=== PATIENT | female | born 1980 | race Caucasian/White ===

== ENCOUNTER 2016-03-04 21:31 | Emergency (ER) | payer OTHER ==
--- NOTE | 2016-03-04 23:04 | ED ---
General Adult HPI - General Chief complaint: Abdominal Pain Stated complaint: Female /Dental Abcess Time Seen by Provider: 03/04/16 22:57 Source: patient, RN notes reviewed Mode of arrival: ambulatory Limitations: no limitations - History of Present Illness Initial comments: Patient is a 36-year-old female who presents emergency room today with chief complaint of increased lower abdominal pain. Patient admits that symptoms started a week ago. She states that she is worried that she may be . She states that symptoms feel consistent with that she's had a past. States her last normal menstrual cycle was back in December. States she just got out of [facility] approximately one week ago. Patient states that she is also worried about abscess located to the lower gumline over tooth #3. Patient also admits to some vaginal discharge. Denies any bleeding. Patient denies any other complaints or associated symptoms. Patient denies any recent fever, chills , shortness of breath, chest pain, back pain, nausea or vomiting, numbness or tingling, dysuria or hematuria, constipation or diarrhea, headaches or visual changes, or any other complaints. - Related Data Previous Rx's Medication Instructions Recorded Sulfamethox-Tmp 800-160Mg [Bactrim 1 tab PO Q12HR #14 tab 03/04/16 DS 800-160 mg] Allergies Allergy/AdvReac Type Severity Reaction Status Date / Time No Known Allergies Allergy Verified 03/04/16 22:55 Review of Systems ROS Statement: Those systems with pertinent positive or pertinent negative responses have been documented in the HPI. ROS Other: All systems not noted in ROS Statement are negative. Past Medical History Past Medical History: No Reported History Additional Past Medical History / Comment(s): kidney infection, ovarian cyst, migraine History of Any Multi-Drug Resistant Organisms: None Reported Past Surgical History: Orthopedic Surgery, Tubal Ligation Additional Past Surgical History / Comment(s): cervical, ovarian cyst Past Psychological History: Anxiety Smoking Status: Current every day smoker Past Alcohol Use History: None Reported Past Drug Use History: None Reported General Exam - General Exam Comments Initial Comments: General: The patient is awake and alert, in no distress, and does not appear acutely ill. Eye: Pupils are equal, round and reactive to light, extra-ocular movements are intact. No nystagmus. There is normal conjunctiva bilaterally. No signs of icterus. Ears, nose, mouth and throat: There are moist mucous membranes and no oral lesions. Neck: The neck is supple, there is no tenderness or JVD. Cardiovascular: There is a regular rate and rhythm. No murmur, rub or gallop is appreciated. Respiratory: Lungs are clear to auscultation, respirations are non-labored, breath sounds are equal. No wheezes, stridor, rales, or rhonchi. Gastrointestinal: Soft, non-distended, non-tender abdomen without masses or organomegaly noted. There is no rebound or guarding present. No CVA tenderness. Bowel sounds are unremarkable. Musculoskeletal: Normal ROM, no tenderness. Strength 5/5. Sensation intact. Pulses equal bilaterally 2+. Neurological: A&O x 3. CN II-XII intact, There are no obvious motor or sensory deficits. Coordination appears grossly intact. Speech is normal. Skin: Skin is warm and dry and no rashes or lesions are noted. Psychiatric: Cooperative, appropriate mood & affect, normal judgment. Limitations: no limitations External exam: Present: normal external exam (COMMUNICATIONS SYSTEMS ENGINEERMYKEL Soliz present for exam.) Speculum exam: Present: normal speculum exam (Mild white discharge.) By manual exam: Present: normal by manual exam. Absent: cervical motion tenderness, adnexal tenderness, adnexal mass Course Vital Signs 03/04/16 03/04/16 21:38 23:11 Temperature 98.7 F Pulse Rate 124 H 93 Respiratory 20 18 Rate Blood Pressure 140/73 118/65 O2 Sat by Pulse 98 100 Oximetry Medical Decision Making - Medical Decision Making Patient does have cultures pending. Urinalysis reviewed negative test. Urine positive for urinary tract infection will be started on antibiotics. Advised follow-up to [facility]. Advised return if any symptoms increase or worsen. Patient states understanding and is in agreement. - Lab Data Lab Results 03/04/16 03/04/16 Range/Units 23:05 23:05 Urine Color Light Yellow Urine Appearance Cloudy H (Clear) Urine pH 7.5 (5.0-8.0) Ur Specific [place] 1.010 (1.001-1.035) Urine Protein Negative (Negative) Urine Glucose (UA) Negative (Negative) Urine Ketones Negative (Negative) Urine Blood Negative (Negative) Urine Nitrate Negative (Negative) Urine Bilirubin Negative (Negative) Urine Urobilinogen <2.0 (<2.0) mg/dL Ur Leukocyte Esterase Large H (Negative) Urine RBC 4 (0-5) /hpf Urine WBC 80 H (0-5) /hpf Urine WBC Clumps Rare H (None) /hpf Ur Squamous Epith Cells 6 H (0-4) /hpf Amorphous Sediment Occasional H (None) /hpf Urine Bacteria Rare H (None) /hpf Urine Mucus Rare H (None) /hpf Urine HCG, Qual Not Detected (Not Detectd) Disposition Clinical Impression: UTI (urinary tract infection) Disposition: HOME SELF-CARE Condition: Good Instructions: Urinary Tract Infection in Women (ED) Additional Instructions: Please use medication as discussed. Please follow-up with [facility] over the next 2-5 days. Please return to emergency room if the symptoms increase or worsen or for any other concerns. Prescriptions: Sulfamethox-Tmp 800-160Mg [Bactrim DS 800-160 mg] 1 tab PO Q12HR #14 tab Time of Disposition: 23:59
[2016-03-04 23:11] VITALS: RESP 18
[2016-03-04 23:32] LABS: Amorphous Sediment,Urine Occasional /hpf; Appearance,Urine Cloudy (Clear); Bacteria,Urine Rare /hpf; Bilirubin,Urine Negative (Negative); Glucose,Urine (UA) Negative (Negative); Ketones,Urine Negative (Negative); Leukocyte Esterase,Urine Large (Negative); Mucus,Urine Rare /hpf; Nitrite,Urine Negative (Negative); PH, Urine 7.5 (5.0-8.0); Particle Count 11093; Protein,Urine Negative (Negative); RBC,Urine 4 /hpf (0-5); Squamous Epithelial Cell,Urine 6 /hpf (0-4); UA Billing (MACRO vs. MICRO) MICRO; Urobilinogen,Urine <2.0 mg/dL (<2.0); WBC,Urine 80 /hpf (0-5)
[2016-03-05 00:15] VITALS: BP 102/61; PULSE 85; TEMP 98
== END 2016-03-05 00:14 | disposition home or self-care (01) ==
LOC: EC 21:31
DX: N39.0 Urinary tract infection, site not specified (principal); K04.7 Periapical abscess without sinus; F17.200 Nicotine dependence, unspecified, uncomplicated
CPT/HCPCS: 81001; 81025; 87070; 87086; 87205; 87491; 87591; 87808; 99284

== ENCOUNTER 2016-05-08 11:50 | Emergency (ER) | payer SELFPAY ==
[2016-05-08 12:00] VITALS: RESP 18
[2016-05-08] MEDS ORDERED: SODIUM CHLORIDE 0.9% 1,000 ML IV STA (12:05)
[2016-05-08] MEDS ORDERED: LORazepam 1 MG TAB PO STA (12:05)
[2016-05-08 12:30] LABS: Basophils % (A) 0 %; Eosinophils # (A) 0.2 k/uL (0-0.7); Eosinophils % (A) 3 %; HCT 41.1 % (34.0-46.0); HDW 3.04; HGB 12.5 gm/dL (11.4-16.0); Hypochromasia Moderate; Luc # (Auto) 0.25; Luc % (Auto) 3; Lymphocytes % (A) 25 %; MCH 19.8 pg (25.0-35.0); MCHC 30.5 g/dL (31.0-37.0); Mean Platelet Volume 6.9; Microcytosis Marked; Monocytes # (A) 0.5 k/uL (0-1.0); Monocytes % (A) 6 %; Neutrophils % (A) 63 %; RBC 6.32 m/uL (3.80-5.40); RDW 14.6 % (11.5-15.5)
[2016-05-08 12:36] LABS: ALT 24 U/L (9-52); AST 27 U/L (14-36); Alkaline Phosphatase 73 U/L (38-126); Anion Gap 16 mmol/L; Blood Urea Nitrogen 8 mg/dL (7-17); Calcium 10.4 mg/dL (8.4-10.2); Carbon Dioxide 18 mmol/L (22-30); Chloride 109 mmol/L (98-107); Glucose 80 mg/dL (74-99); Non-African American GFR(MDRD) >60 (>60 ml/min/1.73 sqM); Potassium 3.9 mmol/L (3.5-5.1); Sodium 143 mmol/L (137-145); Total Bilirubin 1.5 mg/dL (0.2-1.3); Total Protein 8.2 g/dL (6.3-8.2)
[2016-05-08] MEDS ORDERED: HYDROcodone/APAP 10-325MG 1 EACH TAB PO ONE (12:40)
--- NOTE | 2016-05-08 12:40 | XR ---
EXAMINATION TYPE: XR chest 2V DATE OF EXAM: 05/08/2016 12:33 PM HISTORY: Chest Pain. REFERENCE: Previous study dated 11/05/2014. FINDINGS: The lungs are clear. Pleural spaces are clear. Heart size is normal. No displaced rib fract ure is seen. IMPRESSION: NORMAL
[2016-05-08 13:59] VITALS: BP 122/79; PULSE 92
--- NOTE | 2016-05-08 14:13 | ED ---
Chest Pain HPI - General Chief Complaint: Chest Pain Stated Complaint: DRUG INDUCED CHEST PAIN Time Seen by Provider: 05/08/16 12:04 Source: patient Mode of arrival: EMS Limitations: no limitations - History of Present Illness Initial Comments: Patient complains of chest pain. Her pain began several hours ago. Her pain began after using meth for the first time. Patient states the pain as sharp. The pain is in the middle of the chest. It doesn't radiate anywhere. Nothing makes it better or worse. She has no palpitations. She has no belly pain. She has no nausea or vomiting. She has no weakness. She has no change in appetite. She denies any injuries. She has taken no medication for the pain. - Related Data Home Medications Medication Instructions Recorded Confirmed No Known Home Medications [No 05/08/16 05/08/16 Known Home Medications] Allergies Allergy/AdvReac Type Severity Reaction Status Date / Time No Known Allergies Allergy Verified 05/08/16 12:37 Review of Systems ROS Statement: Those systems with pertinent positive or pertinent negative responses have been documented in the HPI. ROS Other: All systems not noted in ROS Statement are negative. EKG Findings - EKG Comments: EKG Findings:: Twelve-lead EKG is obtained, interpreted by me showing ventricular rate 110 bpm, normal MA interval and Trevor complex is, no ST elevation or depression, interpreted by me as sinus tachycardia without acute ischemia. Past Medical History Past Medical History: No Reported History Additional Past Medical History / Comment(s): kidney infection, ovarian cyst, migraine History of Any Multi-Drug Resistant Organisms: None Reported Past Surgical History: Orthopedic Surgery, Tubal Ligation Additional Past Surgical History / Comment(s): cervical, ovarian cyst Past Psychological History: Anxiety Smoking Status: Current every day smoker Past Alcohol Use History: Occasional Past Drug Use History: Marijuana, Methamphetamine General Exam Limitations: no limitations General appearance: alert, in no apparent distress Head exam: Present: atraumatic, normocephalic, normal inspection Eye exam: Present: normal appearance, PERRL, EOMI. Absent: scleral icterus, conjunctival injection, periorbital swelling ENT exam: Present: normal exam, mucous membranes moist Neck exam: Present: normal inspection. Absent: tenderness, meningismus, lymphadenopathy Respiratory exam: Present: normal lung sounds bilaterally. Absent: respiratory distress, wheezes, rales, rhonchi, stridor Cardiovascular Exam: Present: regular rate, normal rhythm, normal heart sounds. Absent: systolic murmur, diastolic murmur, rubs, gallop, clicks GI/Abdominal exam: Present: soft, normal bowel sounds. Absent: distended, tenderness, guarding, rebound, rigid Extremities exam: Present: normal inspection, full ROM, normal capillary refill. Absent: tenderness, pedal edema, joint swelling, calf tenderness Back exam: Present: normal inspection Neurological exam: Present: alert, oriented X3, CN II-XII intact Psychiatric exam: Present: normal affect, normal mood Skin exam: Present: warm, dry, intact, normal color. Absent: rash Course Vital Signs 05/08/16 05/08/16 05/08/16 11:54 12:06 12:46 Temperature 97.4 F L Pulse Rate 113 H 107 H Pulse Rate [ 100 Apical] Respiratory 18 18 Rate Blood Pressure 130/84 118/80 O2 Sat by Pulse 100 100 Oximetry 05/08/16 13:59 Temperature Pulse Rate 92 Pulse Rate [ Apical] Respiratory 18 Rate Blood Pressure 122/79 O2 Sat by Pulse 100 Oximetry Chest Pain MDM - [facility] [place] Patient complains of chest pain. Her laboratory studies are normal. Her imaging is normal. There is no evidence of pneumothorax. She has no risk factors for acute coronary syndrome or pulmonary embolism. She is resting comfortably on reevaluation. She is stable for discharge and outpatient follow- up. Disposition Clinical Impression: Chest pain, Pleurisy Disposition: HOME SELF-CARE Condition: Good Instructions: Chest Pain (ED) Referrals: None,Stated [Primary Care Provider] - 1-2 days Robi Estrella MD [STAFF PHYSICIAN] - 1-2 days Time of Disposition: 14:13
[2016-05-08 14:22] VITALS: TEMP 98.3
== END 2016-05-08 14:22 | disposition home or self-care (01) ==
LOC: EC 11:50
DX: R09.1 Pleurisy (principal); F17.200 Nicotine dependence, unspecified, uncomplicated
CPT/HCPCS: 36415; 71020; 80053; 80306; 83690; 83735; 83880; 84484; 85025; 93005; 96360; 96361; 99285

== ENCOUNTER 2016-07-28 00:50 | Emergency (ER) | payer OTHER ==
[2016-07-28] MEDS ORDERED: SODIUM CHLORIDE 0.9% 1,000 ML IV ONE (01:01)
[2016-07-28 01:26] LABS: Appearance,Urine Cloudy (Clear); Bilirubin,Urine Negative (Negative); Glucose,Urine (UA) Negative (Negative); Ketones,Urine Negative (Negative); Leukocyte Esterase,Urine Large (Negative); Nitrite,Urine Negative (Negative); PH, Urine 6.5 (5.0-8.0); Particle Count 1435; Protein,Urine Negative (Negative); Specific Gravity,Urine 1.003 (1.001-1.035); Squamous Epithelial Cell,Urine <1 /hpf (0-4); UA Billing (MACRO vs. MICRO) MICRO; Urobilinogen,Urine <2.0 mg/dL (<2.0); WBC,Urine 146 /hpf (0-5)
[2016-07-28 01:35] LABS: Basophils # (A) 0.1 k/uL (0-0.2); Basophils % (A) 1 %; CH 20.1; CHCM 30.6; Eosinophils # (A) 0.6 k/uL (0-0.7); Eosinophils % (A) 5 %; HCT 39.1 % (34.0-46.0); HDW 2.82; HGB 11.6 gm/dL (11.4-16.0); Hypochromasia Moderate; Luc # (Auto) 0.17; Luc % (Auto) 1; Lymphocytes # (A) 2.5 k/uL (1.0-4.8); Lymphocytes % (A) 21 %; MCH 19.7 pg (25.0-35.0); MCHC 29.7 g/dL (31.0-37.0); MCV 66.2 fL (80.0-100.0); Mean Platelet Volume 7.5; Microcytosis Marked; Monocytes # (A) 0.4 k/uL (0-1.0); Monocytes % (A) 3 %; Neutrophils # (A) 8.1 k/uL (1.3-7.7); Neutrophils % (A) 69 %; RBC 5.91 m/uL (3.80-5.40); RDW 15.1 % (11.5-15.5); WBC 11.7 k/uL (3.8-10.6); WBC (Perox) 11.87
[2016-07-28 01:44] LABS: ALT 25 U/L (9-52); AST 22 U/L (14-36); Alkaline Phosphatase 61 U/L (38-126); Amylase 108 U/L (30-110); Anion Gap 12 mmol/L; Blood Urea Nitrogen 8 mg/dL (7-17); Calcium 9.1 mg/dL (8.4-10.2); Carbon Dioxide 26 mmol/L (22-30); Chloride 107 mmol/L (98-107); Glucose 88 mg/dL (74-99); Non-African American GFR(MDRD) >60 (>60 ml/min/1.73 sqM); Potassium 3.9 mmol/L (3.5-5.1); Sodium 145 mmol/L (137-145); Total Bilirubin 0.7 mg/dL (0.2-1.3); Total Protein 7.1 g/dL (6.3-8.2)
[2016-07-28] MEDS ORDERED: LEVOFLOXACIN 750MG-D5W PMX 750 MG in DEXTROSE/WATER 1 150ML.BAG IVPB STA (01:59)
--- NOTE | 2016-07-28 01:59 | ED ---
Female Urogenital HPI - General Chief complaint: Urogenital Stated complaint: UTI Time Seen by Provider: 07/28/16 00:59 Source: patient, RN notes reviewed, old records reviewed Mode of arrival: ambulatory Limitations: no limitations - History of Present Illness Initial comments: Patient is a 36-year-old female presents the ED chief complaint of dysuria for the past 3 days. Patient reports that she also has some left-sided flank pain. Patient denies any recent fever or chills. She reports polyuria and dysuria. Patient denies any vaginal discharge. She denies any chance of . Patient states that she has had multiple urinary tract infections leading to kidney infections in the past. Patient denies any nausea or vomiting or abdominal pain. - Related Data Previous Rx's Medication Instructions Recorded Ciprofloxacin HCl [Cipro] 500 mg PO Q12HR #14 tablet 07/28/16 Phenazopyridine [Pyridium] 100 mg PO TID #9 tablet 07/28/16 Allergies Allergy/AdvReac Type Severity Reaction Status Date / Time No Known Allergies Allergy Verified 07/28/16 00:57 Review of Systems ROS Statement: Those systems with pertinent positive or pertinent negative responses have been documented in the HPI. ROS Other: All systems not noted in ROS Statement are negative. Past Medical History Past Medical History: No Reported History Additional Past Medical History / Comment(s): kidney infection, ovarian cyst, migraine History of Any Multi-Drug Resistant Organisms: None Reported Past Surgical History: Orthopedic Surgery, Tubal Ligation Additional Past Surgical History / Comment(s): cervical, ovarian cyst Past Psychological History: Anxiety Smoking Status: Current every day smoker Past Alcohol Use History: Occasional Past Drug Use History: Marijuana, Methamphetamine General Exam - General Exam Comments Initial Comments: Well-appearing 36-year-old female. No acute distress. Limitations: no limitations General appearance: alert, in no apparent distress Head exam: Present: atraumatic, normocephalic, normal inspection Eye exam: Present: normal appearance, PERRL, EOMI. Absent: scleral icterus, conjunctival injection, periorbital swelling ENT exam: Present: normal exam, mucous membranes moist Neck exam: Present: normal inspection. Absent: tenderness, meningismus, lymphadenopathy Respiratory exam: Present: normal lung sounds bilaterally. Absent: respiratory distress, wheezes, rales, rhonchi, stridor Cardiovascular Exam: Present: regular rate, normal rhythm, normal heart sounds. Absent: systolic murmur, diastolic murmur, rubs, gallop, clicks GI/Abdominal exam: Present: soft, normal bowel sounds. Absent: distended, tenderness, guarding, rebound, rigid Extremities exam: Present: normal inspection, full ROM, normal capillary refill. Absent: tenderness, pedal edema, joint swelling, calf tenderness Back exam: Present: normal inspection, CVA tenderness (L) Neurological exam: Present: alert, oriented X3, CN II-XII intact Psychiatric exam: Present: normal affect, normal mood Skin exam: Present: warm, dry, intact, normal color. Absent: rash Course Vital Signs 07/28/16 07/28/16 00:55 02:10 Temperature 97.2 F L 97.6 F Pulse Rate 95 85 Respiratory 16 18 Rate Blood Pressure 118/68 116/80 O2 Sat by Pulse 100 100 Oximetry Medical Decision Making - Medical Decision Making Patient is a 36-year-old female presents the ED chief complaint of dysuria for the past 3 days. Patient reports that she also has some left-sided flank pain. Patient denies any recent fever or chills. She reports polyuria and dysuria. Patient denies any vaginal discharge. She denies any chance of . Patient's lab work was reviewed. Positive for urinary tract infection. Culture will be obtained. Let work is essentially benign. Normal kidney function. Patient will be started on IV Levaquin and she did receive an IV at this point. Patient will be discharged with by mouth Cipro twice a day for the next patient also was given Pyridium for dysuria. Patient agrees to the following up with primary care provider. All return parameters were discussed. Patient understands treatment plan will comply. - Lab Data Result diagrams: 07/28/16 01:22 07/28/16 01:22 Lab Results 07/28/16 07/28/16 07/28/16 Range/Units 01:10 01:10 01:22 WBC 11.7 H (3.8-10.6) k/uL RBC 5.91 H (3.80-5.40) m/uL Hgb 11.6 (11.4-16.0) gm/dL Hct 39.1 (34.0-46.0) % MCV 66.2 L (80.0-100.0) fL MCH 19.7 L (25.0-35.0) pg MCHC 29.7 L (31.0-37.0) g/dL RDW 15.1 (11.5-15.5) % Plt Count 192 (150-450) k/uL Neutrophils % 69 % Lymphocytes % 21 % Monocytes % 3 % Eosinophils % 5 % Basophils % 1 % Neutrophils # 8.1 H (1.3-7.7) k/uL Lymphocytes # 2.5 (1.0-4.8) k/uL Monocytes # 0.4 (0-1.0) k/uL Eosinophils # 0.6 (0-0.7) k/uL Basophils # 0.1 (0-0.2) k/uL Hypochromasia Moderate Microcytosis Marked Sodium (137-145) mmol/L Potassium (3.5-5.1) mmol/L Chloride (98-107) mmol/L Carbon Dioxide (22-30) mmol/L Anion Gap mmol/L BUN (7-17) mg/dL Creatinine (0.52-1.04) mg/dL Est GFR (MDRD) Af Amer (>60 ml/min/1.73 sqM) Est GFR (MDRD) Non-Af (>60 ml/min/1.73 sqM) Glucose (74-99) mg/dL Calcium (8.4-10.2) mg/dL Total Bilirubin (0.2-1.3) mg/dL AST (14-36) U/L ALT (9-52) U/L Alkaline Phosphatase (38-126) U/L Total Protein (6.3-8.2) g/dL Albumin (3.5-5.0) g/dL Amylase (30-110) U/L Lipase (23-300) U/L Urine Color Light Yellow Urine Appearance Cloudy H (Clear) Urine pH 6.5 (5.0-8.0) Ur Specific [place] 1.003 (1.001-1.035) Urine Protein Negative (Negative) Urine Glucose (UA) Negative (Negative) Urine Ketones Negative (Negative) Urine Blood Trace H (Negative) Urine Nitrite Negative (Negative) Urine Bilirubin Negative (Negative) Urine Urobilinogen <2.0 (<2.0) mg/dL Ur Leukocyte Esterase Large H (Negative) Urine WBC 146 H (0-5) /hpf Urine WBC Clumps Few H (None) /hpf Ur Squamous Epith Cells <1 (0-4) /hpf Urine HCG, Qual Not Detected (Not Detectd) 07/28/16 Range/Units 01:22 WBC (3.8-10.6) k/uL RBC (3.80-5.40) m/uL Hgb (11.4-16.0) gm/dL Hct (34.0-46.0) % MCV (80.0-100.0) fL MCH (25.0-35.0) pg MCHC (31.0-37.0) g/dL RDW (11.5-15.5) % Plt Count (150-450) k/uL Neutrophils % % Lymphocytes % % Monocytes % % Eosinophils % % Basophils % % Neutrophils # (1.3-7.7) k/uL Lymphocytes # (1.0-4.8) k/uL Monocytes # (0-1.0) k/uL Eosinophils # (0-0.7) k/uL Basophils # (0-0.2) k/uL Hypochromasia Microcytosis Sodium 145 (137-145) mmol/L Potassium 3.9 (3.5-5.1) mmol/L Chloride 107 (98-107) mmol/L Carbon Dioxide 26 (22-30) mmol/L Anion Gap 12 mmol/L BUN 8 (7-17) mg/dL Creatinine 0.70 (0.52-1.04) mg/dL Est GFR (MDRD) Af Amer >60 (>60 ml/min/1.73 sqM) Est GFR (MDRD) Non-Af >60 (>60 ml/min/1.73 sqM) Glucose 88 (74-99) mg/dL Calcium 9.1 (8.4-10.2) mg/dL Total Bilirubin 0.7 (0.2-1.3) mg/dL AST 22 (14-36) U/L ALT 25 (9-52) U/L Alkaline Phosphatase 61 (38-126) U/L Total Protein 7.1 (6.3-8.2) g/dL Albumin 4.5 (3.5-5.0) g/dL Amylase 108 (30-110) U/L Lipase 220 (23-300) U/L Urine Color Urine Appearance (Clear) Urine pH (5.0-8.0) Ur Specific [place] (1.001-1.035) Urine Protein (Negative) Urine Glucose (UA) (Negative) Urine Ketones (Negative) Urine Blood (Negative) Urine Nitrite (Negative) Urine Bilirubin (Negative) Urine Urobilinogen (<2.0) mg/dL Ur Leukocyte Esterase (Negative) Urine WBC (0-5) /hpf Urine WBC Clumps (None) /hpf Ur Squamous Epith Cells (0-4) /hpf Urine HCG, Qual (Not Detectd) Disposition Clinical Impression: Urinary tract infection Disposition: HOME SELF-CARE Condition: Good Instructions: Urinary Tract Infection in Women (ED) Additional Instructions: Follow-up with primary care provider. complete Antibiotic prescription. Return to the emergency department if any alarming signs or symptoms occur. Prescriptions: Ciprofloxacin HCl [Cipro] 500 mg PO Q12HR #14 tablet Phenazopyridine [Pyridium] 100 mg PO TID #9 tablet Referrals: None,Stated [Primary Care Provider] - 1-2 days Time of Disposition: 02:23
[2016-07-28] MEDS ORDERED: PHENAZOPYRIDINE 100 MG TAB PO STA (02:29)
[2016-07-28 03:45] VITALS: BP 108/68; PULSE 78; RESP 16; TEMP 98.5
== END 2016-07-28 04:02 | disposition home or self-care (01) ==
LOC: EC 00:50
DX: N39.0 Urinary tract infection, site not specified (principal); F17.200 Nicotine dependence, unspecified, uncomplicated
CPT/HCPCS: 99284; 96365; 96366; 96361; 36415; 80053; 82150; 83690; 85025; 81001; 81025; 87040; 87086; J1956; 87077; 87186

== ENCOUNTER 2017-02-28 14:25 | Emergency (ER) | payer OTHER ==
[2017-02-28 14:52] VITALS: BP 117/65; TEMP 97.7
--- NOTE | 2017-02-28 14:57 | ED ---
General Adult HPI - General Chief complaint: ENT Stated complaint: Sore Throat Time Seen by Provider: 02/28/17 14:50 Source: patient, RN notes reviewed Mode of arrival: ambulatory Limitations: no limitations - History of Present Illness Initial comments: Patient 37-year-old female who presents emergency room today with chief complaint of increased bodyaches and sore throat. She states symptoms started yesterday. She admits to chills. Admits to some congestion. Does admit to feeling a little nauseated. States that she did have some diarrhea. She denies any other complaints or symptoms. Patient denies any recent fever, chills, shortness of breath, chest pain, back pain, numbness or tingling, dysuria or hematuria, constipation, headaches or visual changes, or any other complaints. - Related Data Previous Rx's Medication Instructions Recorded Ciprofloxacin HCl [Cipro] 500 mg PO Q12HR #14 tablet 07/28/16 Phenazopyridine [Pyridium] 100 mg PO TID #9 tablet 07/28/16 Oseltamivir [Tamiflu] 75 mg PO Q12HR 5 Days cap 02/28/17 Allergies Allergy/AdvReac Type Severity Reaction Status Date / Time No Known Allergies Allergy Verified 01/26/17 00:01 Review of Systems ROS Statement: Those systems with pertinent positive or pertinent negative responses have been documented in the HPI. ROS Other: All systems not noted in ROS Statement are negative. Past Medical History Past Medical History: No Reported History Additional Past Medical History / Comment(s): kidney infection, ovarian cyst, migraine History of Any Multi-Drug Resistant Organisms: ESBL Date of last positivie culture/infection: 07/28/16 MDRO Source:: ESBL URINE Past Surgical History: Orthopedic Surgery, Tubal Ligation Additional Past Surgical History / Comment(s): cervical, ovarian cyst Past Psychological History: Anxiety Smoking Status: Current every day smoker Past Alcohol Use History: Occasional Past Drug Use History: Marijuana, Methamphetamine General Exam - General Exam Comments Initial Comments: General: The patient is awake and alert, in no distress, and does not appear acutely ill. Eye: Pupils are equal, round and reactive to light, extra-ocular movements are intact. No nystagmus. There is normal conjunctiva bilaterally. No signs of icterus. Ears, nose, mouth and throat: There are moist mucous membranes and no oral lesions. Neck: The neck is supple, there is no tenderness or JVD. Cardiovascular: There is a regular rate and rhythm. No murmur, rub or gallop is appreciated. Respiratory: Lungs are clear to auscultation, respirations are non-labored, breath sounds are equal. No wheezes, stridor, rales, or rhonchi. Musculoskeletal: Normal ROM, no tenderness. Strength 5/5. Sensation intact. Pulses equal bilaterally 2+. Neurological: A&O x 3. CN II-XII intact, There are no obvious motor or sensory deficits. Coordination appears grossly intact. Speech is normal. Skin: Skin is warm and dry and no rashes or lesions are noted. Psychiatric: Cooperative, appropriate mood & affect, normal judgment. Limitations: no limitations Course Vital Signs 02/28/17 14:49 Temperature 97.7 F Pulse Rate 104 H Respiratory 20 Rate Blood Pressure 117/65 O2 Sat by Pulse 100 Oximetry Medical Decision Making - Medical Decision Making Patient's symptoms consistent with influenza. Will be started on Tamiflu. Advised to continue Tylenol Motrin for body aches and fevers. Advised follow- up family doctor or return here to the emergency room for any other concerns. Disposition Clinical Impression: Influenza Disposition: HOME SELF-CARE Condition: Good Instructions: Influenza (ED) Additional Instructions: Please use medication as discussed. Please follow-up with family doctor in the next 2 days of symptoms have not improved. Please return to emergency room if the symptoms increase or worsen or for any other concerns. Prescriptions: Oseltamivir [Tamiflu] 75 mg PO Q12HR 5 Days cap Referrals: Amilcar Griffin MD [Primary Care Provider] - 1-2 days Time of Disposition: 14:56
[2017-02-28 15:19] VITALS: PULSE 85; RESP 18
== END 2017-02-28 15:18 | disposition home or self-care (01) ==
LOC: EC 14:25
DX: J11.1 Influenza due to unidentified influenza virus with other respiratory manifestations (principal); F17.200 Nicotine dependence, unspecified, uncomplicated
CPT/HCPCS: 99282

== ENCOUNTER 2017-06-25 19:28 | Emergency (ER) | payer OTHER ==
[2017-06-25] MEDS ORDERED: SODIUM CHLORIDE 0.9% 1,000 ML IV STA (20:03)
--- NOTE | 2017-06-25 20:07 | ED ---
General Adult HPI - General Chief complaint: Arrhythmia/Palpitations Stated complaint: Palpitations Time Seen by Provider: 06/25/17 19:48 Source: patient, EMS, RN notes reviewed Mode of arrival: EMS Limitations: no limitations - History of Present Illness Initial comments: Patient is a pleasant 37-year-old female presenting to the emergency Department with complaints of palpitations. Patient admits to smoking crack cocaine, last ingestion was at 0230 today. Patient states she has not been able to sleep well since that time. Patient states she did fall asleep once however short period patient has had some palpitations. Patient feels like she needs to sleep. Patient denies any chest pain. No difficulty in breathing. Patient denies any injection of drug use. - Related Data Home Medications Medication Instructions Recorded Confirmed No Known Home Medications [No 05/27/17 05/28/17 Known Home Medications] Allergies Allergy/AdvReac Type Severity Reaction Status Date / Time No Known Allergies Allergy Verified 05/28/17 18:57 Review of Systems ROS Statement: Those systems with pertinent positive or pertinent negative responses have been documented in the HPI. ROS Other: All systems not noted in ROS Statement are negative. Constitutional: Denies: fever Eyes: Denies: eye pain ENT: Denies: ear pain Respiratory: Denies: dyspnea Cardiovascular: Reports: palpitations. Denies: chest pain Endocrine: Reports: fatigue Gastrointestinal: Denies: abdominal pain Genitourinary: Denies: dysuria Musculoskeletal: Denies: back pain Skin: Denies: rash Neurological: Denies: weakness Past Medical History Past Medical History: No Reported History Additional Past Medical History / Comment(s): kidney infection, ovarian cyst, migraine History of Any Multi-Drug Resistant Organisms: ESBL Date of last positivie culture/infection: 07/28/16 MDRO Source:: ESBL URINE Past Surgical History: Orthopedic Surgery, Tubal Ligation Additional Past Surgical History / Comment(s): cervical, ovarian cyst Past Psychological History: Anxiety Smoking Status: Current every day smoker Past Alcohol Use History: Occasional Past Drug Use History: Marijuana, Methamphetamine General Exam Limitations: no limitations General appearance: alert, in no apparent distress Head exam: Present: atraumatic Eye exam: Present: normal appearance, PERRL ENT exam: Present: normal oropharynx Neck exam: Present: normal inspection Respiratory exam: Present: normal lung sounds bilaterally Cardiovascular Exam: Present: normal rhythm, tachycardia Expanded Peripheral pulses: 2+: Radial (R), Radial (L), Dorsalis Pedis (R), Dorsalis Pedis (L) GI/Abdominal exam: Present: soft. Absent: tenderness Extremities exam: Present: normal inspection Neurological exam: Present: alert Psychiatric exam: Present: normal affect, normal mood Skin exam: Present: normal color Course Vital Signs 06/25/17 06/25/17 06/25/17 19:29 19:45 19:47 Temperature 97.6 F Pulse Rate 118 H 117 H Pulse Rate [ 117 H Right] Respiratory 16 18 Rate Blood Pressure 139/82 130/75 O2 Sat by Pulse 99 100 Oximetry 06/25/17 20:30 Temperature 98.3 F Pulse Rate 102 H Pulse Rate [ Right] Respiratory 16 Rate Blood Pressure 121/75 O2 Sat by Pulse 100 Oximetry EKG Findings - EKG Comments: EKG Findings:: Sinus tachycardia 106. CT 138. QRS 80. QT 336. QTc 446. Normal axis. Normal QRS. No acute ST change. Medical Decision Making - Medical Decision Making Patient reevaluated and resting comfortably in bed. Patient is sleeping but easily arousable to voice. Heart rate 75. Patient states she feels much better and is comfortable with discharge home. - Lab Data Result diagrams: 06/25/17 19:38 06/25/17 19:38 Lab Results 06/25/17 06/25/17 06/25/17 Range/Units 19:38 19:38 19:38 WBC 7.9 (3.8-10.6) k/uL RBC 5.63 H (3.80-5.40) m/uL Hgb 11.9 (11.4-16.0) gm/dL Hct 36.7 (34.0-46.0) % MCV 65.2 L (80.0-100.0) fL MCH 21.1 L (25.0-35.0) pg MCHC 32.3 (31.0-37.0) g/dL RDW 17.9 H (11.5-15.5) % Plt Count 155 (150-450) k/uL Neutrophils % 73 % Lymphocytes % 16 % Monocytes % 6 % Eosinophils % 3 % Basophils % 0 % Neutrophils # 5.8 (1.3-7.7) k/uL Lymphocytes # 1.3 (1.0-4.8) k/uL Monocytes # 0.5 (0-1.0) k/uL Eosinophils # 0.2 (0-0.7) k/uL Basophils # 0.0 (0-0.2) k/uL Hypochromasia Slight Anisocytosis Slight Microcytosis Marked PT (9.0-12.0) sec INR (<1.2) APTT (22.0-30.0) sec Sodium 140 (137-145) mmol/L Potassium 3.6 (3.5-5.1) mmol/L Chloride 105 (98-107) mmol/L Carbon Dioxide 20 L (22-30) mmol/L Anion Gap 15 mmol/L BUN 6 L (7-17) mg/dL Creatinine 0.60 (0.52-1.04) mg/dL Est GFR (CKD-EPI)AfAm >90 (>60 ml/min/1.73 sqM) Est GFR (CKD-EPI)NonAf >90 (>60 ml/min/1.73 sqM) Glucose 89 (74-99) mg/dL Calcium 8.8 (8.4-10.2) mg/dL Magnesium 1.7 (1.6-2.3) mg/dL Total Bilirubin 1.3 (0.2-1.3) mg/dL AST 28 (14-36) U/L ALT 32 (9-52) U/L Alkaline Phosphatase 70 (38-126) U/L Total Creatine Kinase 74 (30-135) U/L CK-MB (CK-2) 0.9 (0.0-2.4) ng/mL CK-MB (CK-2) Rel Index 1.2 Troponin I <0.012 (0.000-0.034) ng/mL Total Protein 6.7 (6.3-8.2) g/dL Albumin 4.2 (3.5-5.0) g/dL 06/25/17 Range/Units 19:38 WBC (3.8-10.6) k/uL RBC (3.80-5.40) m/uL Hgb (11.4-16.0) gm/dL Hct (34.0-46.0) % MCV (80.0-100.0) fL MCH (25.0-35.0) pg MCHC (31.0-37.0) g/dL RDW (11.5-15.5) % Plt Count (150-450) k/uL Neutrophils % % Lymphocytes % % Monocytes % % Eosinophils % % Basophils % % Neutrophils # (1.3-7.7) k/uL Lymphocytes # (1.0-4.8) k/uL Monocytes # (0-1.0) k/uL Eosinophils # (0-0.7) k/uL Basophils # (0-0.2) k/uL Hypochromasia Anisocytosis Microcytosis PT 10.1 (9.0-12.0) sec INR 1.0 (<1.2) APTT 24.3 (22.0-30.0) sec Sodium (137-145) mmol/L Potassium (3.5-5.1) mmol/L Chloride (98-107) mmol/L Carbon Dioxide (22-30) mmol/L Anion Gap mmol/L BUN (7-17) mg/dL Creatinine (0.52-1.04) mg/dL Est GFR (CKD-EPI)AfAm (>60 ml/min/1.73 sqM) Est GFR (CKD-EPI)NonAf (>60 ml/min/1.73 sqM) Glucose (74-99) mg/dL Calcium (8.4-10.2) mg/dL Magnesium (1.6-2.3) mg/dL Total Bilirubin (0.2-1.3) mg/dL AST (14-36) U/L ALT (9-52) U/L Alkaline Phosphatase (38-126) U/L Total Creatine Kinase (30-135) U/L CK-MB (CK-2) (0.0-2.4) ng/mL CK-MB (CK-2) Rel Index Troponin I (0.000-0.034) ng/mL Total Protein (6.3-8.2) g/dL Albumin (3.5-5.0) g/dL - Radiology Data Radiology results: image reviewed (Chest x-ray shows no acute process.) Disposition Clinical Impression: Palpitations Disposition: HOME SELF-CARE Condition: Stable Instructions: Palpitations (ED), Cocaine Abuse (ED) Additional Instructions: Please follow-up with primary care physician in the next day or 2 for recheck. Discontinue crack cocaine use. Is patient prescribed a controlled substance at d/c from ED?: No Referrals: Amilcar Griffin MD [Primary Care Provider] - 1-2 days Time of Disposition: 21:05
[2017-06-25 20:33] VITALS: RESP 16
[2017-06-25 20:33] LABS: Anisocytosis Slight; Basophils % (A) 0 %; Eosinophils # (A) 0.2 k/uL (0-0.7); Eosinophils % (A) 3 %; HCT 36.7 % (34.0-46.0); HGB 11.9 gm/dL (11.4-16.0); Hypochromasia Slight; Lymphocytes # (A) 1.3 k/uL (1.0-4.8); Lymphocytes % (A) 16 %; MCH 21.1 pg (25.0-35.0); MCHC 32.3 g/dL (31.0-37.0); MCV 65.2 fL (80.0-100.0); Mean Platelet Volume 7.1; Microcytosis Marked; Monocytes # (A) 0.5 k/uL (0-1.0); Monocytes % (A) 6 %; Neutrophils # (A) 5.8 k/uL (1.3-7.7); Neutrophils % (A) 73 %; Platelet Count 155 k/uL (150-450); RBC 5.63 m/uL (3.80-5.40); RDW 17.9 % (11.5-15.5); WBC 7.9 k/uL (3.8-10.6)
--- NOTE | 2017-06-25 20:37 | XR ---
EXAMINATION TYPE: XR chest 2V DATE OF EXAM: 06/25/2017 COMPARISON: Prior chest x-ray 05/28/2017 HISTORY: Chest pain and dysrhythmia TECHNIQUE: Frontal and lateral views of the chest are obtained. FINDINGS: There is no focal air space opacity, pleural effusion, or pneumothorax seen. The cardiac silhouette size is within normal limits. The osseous structures are intact. IMPRESSION: No acute cardiopulmonary process.
[2017-06-25 20:41] LABS: Creatine Kinase 74 U/L (30-135)
[2017-06-25 20:43] LABS: ALT 32 U/L (9-52); AST 28 U/L (14-36); Albumin 4.2 g/dL (3.5-5.0); Alkaline Phosphatase 70 U/L (38-126); Anion Gap 15 mmol/L; Blood Urea Nitrogen 6 mg/dL (7-17); Calcium 8.8 mg/dL (8.4-10.2); Carbon Dioxide 20 mmol/L (22-30); Chloride 105 mmol/L (98-107); Glucose 89 mg/dL (74-99); Magnesium 1.7 mg/dL (1.6-2.3); Potassium 3.6 mmol/L (3.5-5.1); Sodium 140 mmol/L (137-145); Total Bilirubin 1.3 mg/dL (0.2-1.3); Total Protein 6.7 g/dL (6.3-8.2)
[2017-06-25 20:48] LABS: Partial Thromboplastin Time 24.3 sec (22.0-30.0); Prothrombin Time 10.1 sec (9.0-12.0)
[2017-06-25 20:54] LABS: Creatine Kinase MB 0.9 ng/mL (0.0-2.4); Troponin I <0.012 ng/mL (0.000-0.034)
[2017-06-25 22:45] LABS: Amphetamine Screen,Urine Detected (NotDetected); Benzodiazepines Screen,Urine Not Detected (NotDetected); Cocaine Screen,Urine Not Detected (NotDetected); Opiate Screen,Urine Detected (NotDetected); Phencyclidine Screen,Urine Not Detected (NotDetected)
[2017-06-25 22:46] LABS: Barbiturate Screen,Urine Not Detected (NotDetected); Methadone Screen, Urine Not Detected (NotDetected); Oxycodone Screen, Urine Not Detected (NotDetected); Tricyclic Antidepressant,Urine Detected (NotDetected); Urn Cannabinoid Scrn Detected (NotDetected)
[2017-06-26 04:45] VITALS: BP 112/65; PULSE 100; TEMP 97.3
== END 2017-06-26 04:50 | disposition home or self-care (01) ==
LOC: EC 19:28
DX: R00.2 Palpitations (principal); F17.200 Nicotine dependence, unspecified, uncomplicated
CPT/HCPCS: 36415; 71046; 80053; 80306; 82550; 82553; 83735; 84484; 85025; 85610; 85730; 93005; 96360; 96361; 99285

== ENCOUNTER 2017-09-29 07:09 | Emergency (ER) | payer OTHER ==
[2017-09-29 07:18] VITALS: RESP 18
[2017-09-29] MEDS ORDERED: SODIUM CHLORIDE 0.9% 500 ML IV STA (07:40)
--- NOTE | 2017-09-29 07:43 | ED ---
General Adult HPI - General Chief complaint: Chest Pain Stated complaint: Chest pain Time Seen by Provider: 09/29/17 07:10 Source: patient, EMS, RN notes reviewed Mode of arrival: EMS Limitations: no limitations - History of Present Illness Initial comments: This is a 37-year-old female who presents to the emergency department complaining of her heart skipping a beat last night. Patient told the nurse she had chest pain but she denies any chest pain to me currently or this morning. Patient states last night she was doing cocaine drinking and smoking cigarettes and she had a few episodes where she felt as though her heart was skipping a beat and when she woke up this morning she took a Seroquel at 5:30 and then decided to come to the hospital. Patient denies any recent fever chills or cough. Patient again denies any chest pain difficulty breathing or shortness of breath. Patient states currently she is asymptomatic the last time she had feeling of her heart skipping a beat was last evening. Patient denies any lightheadedness dizziness or near syncopal episode. Patient is not a very good historian and she easily falls asleep while I'm talking to her. - Related Data Home Medications Medication Instructions Recorded Confirmed No Known Home Medications 05/27/17 05/28/17 Allergies Allergy/AdvReac Type Severity Reaction Status Date / Time No Known Allergies Allergy Verified 09/29/17 07:18 Review of Systems ROS Statement: Those systems with pertinent positive or pertinent negative responses have been documented in the HPI. ROS Other: All systems not noted in ROS Statement are negative. Past Medical History Past Medical History: No Reported History Additional Past Medical History / Comment(s): kidney infection, ovarian cyst, migraine History of Any Multi-Drug Resistant Organisms: ESBL Date of last positivie culture/infection: 07/28/16 MDRO Source:: ESBL URINE Past Surgical History: Orthopedic Surgery, Tubal Ligation Additional Past Surgical History / Comment(s): cervical, ovarian cyst Past Psychological History: Anxiety Smoking Status: Current every day smoker Past Alcohol Use History: Occasional Past Drug Use History: Cocaine, Marijuana, Methamphetamine General Exam - General Exam Comments Initial Comments: GENERAL: Patient is well-developed and well-nourished. Patient is nontoxic and well- hydrated and is in no acute distress. Patient is sleeping when I entered the room ENT: Neck is soft and supple. No significant lymphadenopathy is noted. Oropharynx is clear. Moist mucous membranes. Neck has full range of motion without eliciting any pain. EYES: The sclera were anicteric and conjunctiva were pink and moist. Extraocular movements were intact and pupils were equal round and reactive to light. Eyelids were unremarkable. PULMONARY: Unlabored respirations. Good breath sounds bilaterally. No audible rales rhonchi or wheezing was noted. CARDIOVASCULAR: There is a regular rate and rhythm without any murmurs gallops or rubs. ABDOMEN: Soft and nontender with normal bowel sounds. No palpable organomegaly was noted. There is no palpable pulsatile mass. SKIN: Skin is clear with no lesions or rashes and otherwise unremarkable. NEUROLOGIC: Patient is alert and oriented x3. Cranial nerves II through XII are grossly intact. Motor and sensory are also intact. Normal speech, volume and content. Symmetrical smile. MUSCULOSKELETAL: Normal extremities with adequate strength and full range of motion. No lower extremity swelling or edema. No calf tenderness. LYMPHATICS: No significant lymphadenopathy is noted PSYCHIATRIC: Normal psychiatric evaluation. Limitations: no limitations Course Vital Signs 09/29/17 07:10 Temperature 97.2 F L Pulse Rate 96 Respiratory 18 Rate Blood Pressure 128/77 O2 Sat by Pulse 100 Oximetry Medical Decision Making - Medical Decision Making EKG shows normal sinus rhythm at 81 bpm KS interval 250 QRS is 80 QT interval 384 QTC is 446. Patient's EKG shows no ST segment elevation or depression or T wave abnormalities are noted. - Lab Data Result diagrams: 09/29/17 07:24 09/29/17 07:24 Lab Results 09/29/17 09/29/17 09/29/17 Range/Units 07:24 07:24 07:24 WBC 4.8 (3.8-10.6) k/uL RBC 5.21 (3.80-5.40) m/uL Hgb 10.9 L (11.4-16.0) gm/dL Hct 34.6 (34.0-46.0) % MCV 66.5 L (80.0-100.0) fL MCH 20.8 L (25.0-35.0) pg MCHC 31.4 (31.0-37.0) g/dL RDW 16.0 H (11.5-15.5) % Plt Count 212 (150-450) k/uL Neutrophils % 62 % Lymphocytes % 25 % Monocytes % 4 % Eosinophils % 7 % Basophils % 1 % Neutrophils # 3.0 (1.3-7.7) k/uL Lymphocytes # 1.2 (1.0-4.8) k/uL Monocytes # 0.2 (0-1.0) k/uL Eosinophils # 0.3 (0-0.7) k/uL Basophils # 0.0 (0-0.2) k/uL Hypochromasia Slight Microcytosis Marked PT (9.0-12.0) sec INR (<1.2) APTT (22.0-30.0) sec Sodium 142 (137-145) mmol/L Potassium 3.7 (3.5-5.1) mmol/L Chloride 111 H (98-107) mmol/L Carbon Dioxide 24 (22-30) mmol/L Anion Gap 7 mmol/L BUN 5 L (7-17) mg/dL Creatinine 0.63 (0.52-1.04) mg/dL Est GFR (CKD-EPI)AfAm >90 (>60 ml/min/1.73 sqM) Est GFR (CKD-EPI)NonAf >90 (>60 ml/min/1.73 sqM) Glucose 136 H (74-99) mg/dL Calcium 9.0 (8.4-10.2) mg/dL Magnesium 1.9 (1.6-2.3) mg/dL Total Bilirubin 0.9 (0.2-1.3) mg/dL AST 21 (14-36) U/L ALT 19 (9-52) U/L Alkaline Phosphatase 58 (38-126) U/L Total Protein 6.5 (6.3-8.2) g/dL Albumin 3.8 (3.5-5.0) g/dL Free T4 1.24 (0.78-2.19) ng/dL Urine Opiates Screen Not Detected (NotDetected) Ur Oxycodone Screen Not Detected (NotDetected) Urine Methadone Screen Not Detected (NotDetected) Ur Propoxyphene Screen Not Detected (NotDetected) Ur Barbiturates Screen Not Detected (NotDetected) U Tricyclic Antidepress Detected H (NotDetected) Ur Phencyclidine Scrn Not Detected (NotDetected) Ur Amphetamines Screen Not Detected (NotDetected) U Methamphetamines Scrn Not Detected (NotDetected) U Benzodiazepines Scrn Not Detected (NotDetected) Urine Cocaine Screen Detected H (NotDetected) U Marijuana (THC) Screen Detected H (NotDetected) 09/29/17 Range/Units 07:24 WBC (3.8-10.6) k/uL RBC (3.80-5.40) m/uL Hgb (11.4-16.0) gm/dL Hct (34.0-46.0) % MCV (80.0-100.0) fL MCH (25.0-35.0) pg MCHC (31.0-37.0) g/dL RDW (11.5-15.5) % Plt Count (150-450) k/uL Neutrophils % % Lymphocytes % % Monocytes % % Eosinophils % % Basophils % % Neutrophils # (1.3-7.7) k/uL Lymphocytes # (1.0-4.8) k/uL Monocytes # (0-1.0) k/uL Eosinophils # (0-0.7) k/uL Basophils # (0-0.2) k/uL Hypochromasia Microcytosis PT 10.2 (9.0-12.0) sec INR 1.0 (<1.2) APTT 25.3 (22.0-30.0) sec Sodium (137-145) mmol/L Potassium (3.5-5.1) mmol/L Chloride (98-107) mmol/L Carbon Dioxide (22-30) mmol/L Anion Gap mmol/L BUN (7-17) mg/dL Creatinine (0.52-1.04) mg/dL Est GFR (CKD-EPI)AfAm (>60 ml/min/1.73 sqM) Est GFR (CKD-EPI)NonAf (>60 ml/min/1.73 sqM) Glucose (74-99) mg/dL Calcium (8.4-10.2) mg/dL Magnesium (1.6-2.3) mg/dL Total Bilirubin (0.2-1.3) mg/dL AST (14-36) U/L ALT (9-52) U/L Alkaline Phosphatase (38-126) U/L Total Protein (6.3-8.2) g/dL Albumin (3.5-5.0) g/dL Free T4 (0.78-2.19) ng/dL Urine Opiates Screen (NotDetected) Ur Oxycodone Screen (NotDetected) Urine Methadone Screen (NotDetected) Ur Propoxyphene Screen (NotDetected) Ur Barbiturates Screen (NotDetected) U Tricyclic Antidepress (NotDetected) Ur Phencyclidine Scrn (NotDetected) Ur Amphetamines Screen (NotDetected) U Methamphetamines Scrn (NotDetected) U Benzodiazepines Scrn (NotDetected) Urine Cocaine Screen (NotDetected) U Marijuana (THC) Screen (NotDetected) Disposition Clinical Impression: Palpitations, Cocaine abuse Disposition: HOME SELF-CARE Condition: Good Instructions: Palpitations (ED), Cocaine Abuse (ED) Is patient prescribed a controlled substance at d/c from ED?: No Referrals: Amilcar Griffin MD [Primary Care Provider] - 1-2 days Time of Disposition: 08:26
[2017-09-29 07:54] LABS: Basophils % (A) 1 %; Eosinophils # (A) 0.3 k/uL (0-0.7); Eosinophils % (A) 7 %; HCT 34.6 % (34.0-46.0); HGB 10.9 gm/dL (11.4-16.0); Hypochromasia Slight; Lymphocytes # (A) 1.2 k/uL (1.0-4.8); Lymphocytes % (A) 25 %; MCH 20.8 pg (25.0-35.0); MCHC 31.4 g/dL (31.0-37.0); MCV 66.5 fL (80.0-100.0); Mean Platelet Volume 6.9; Microcytosis Marked; Monocytes # (A) 0.2 k/uL (0-1.0); Monocytes % (A) 4 %; Neutrophils % (A) 62 %; Platelet Count 212 k/uL (150-450); RBC 5.21 m/uL (3.80-5.40); WBC 4.8 k/uL (3.8-10.6)
[2017-09-29 08:04] LABS: Amphetamine Screen,Urine Not Detected (NotDetected); Barbiturate Screen,Urine Not Detected (NotDetected); Benzodiazepines Screen,Urine Not Detected (NotDetected); Cocaine Screen,Urine Detected (NotDetected); Methadone Screen, Urine Not Detected (NotDetected); Opiate Screen,Urine Not Detected (NotDetected); Oxycodone Screen, Urine Not Detected (NotDetected); Phencyclidine Screen,Urine Not Detected (NotDetected); Tricyclic Antidepressant,Urine Detected (NotDetected); Urn Cannabinoid Scrn Detected (NotDetected)
[2017-09-29 08:05] LABS: Partial Thromboplastin Time 25.3 sec (22.0-30.0); Prothrombin Time 10.2 sec (9.0-12.0)
[2017-09-29 08:07] LABS: ALT 19 U/L (9-52); AST 21 U/L (14-36); Albumin 3.8 g/dL (3.5-5.0); Alkaline Phosphatase 58 U/L (38-126); Anion Gap 7 mmol/L; Blood Urea Nitrogen 5 mg/dL (7-17); Carbon Dioxide 24 mmol/L (22-30); Chloride 111 mmol/L (98-107); Glucose 136 mg/dL (74-99); Magnesium 1.9 mg/dL (1.6-2.3); Potassium 3.7 mmol/L (3.5-5.1); Sodium 142 mmol/L (137-145); Total Bilirubin 0.9 mg/dL (0.2-1.3); Total Protein 6.5 g/dL (6.3-8.2)
[2017-09-29 08:23] LABS: T4, Free (Free Thyroxine) 1.24 ng/dL (0.78-2.19)
--- NOTE | 2017-09-29 08:27 | XR ---
EXAMINATION TYPE: XR chest 2V DATE OF EXAM: 09/29/2017 COMPARISON: Prior chest x-ray 06/25/2017 HISTORY: Dysrhythmia TECHNIQUE: Frontal and lateral views of the chest are obtained. FINDINGS: There is no focal air space opacity, pleural effusion, or pneumothorax seen. The cardiac silhouette size is stable, patient is rotated. The osseous structures are intact. Lung volumes are prominent which may be indicative of underlying COPD IMPRESSION: No acute cardiopulmonary process.
[2017-09-29 08:36] LABS: Creatine Kinase 39 U/L (30-135)
[2017-09-29 08:49] LABS: Creatine Kinase MB 0.4 ng/mL (0.0-2.4); Troponin I <0.012 ng/mL (0.000-0.034)
[2017-09-29 09:21] VITALS: BP 101/62; PULSE 86; TEMP 98
== END 2017-09-29 09:21 | disposition home or self-care (01) ==
LOC: EC 07:09
DX: R00.2 Palpitations (principal); F14.10 Cocaine abuse, uncomplicated; R07.9 Chest pain, unspecified; F17.200 Nicotine dependence, unspecified, uncomplicated
CPT/HCPCS: 36415; 71046; 80053; 80306; 82550; 82553; 83735; 84439; 84443; 84484; 85025; 85610; 85730; 99285

== ENCOUNTER 2017-12-24 17:09 | Emergency (ER) | payer OTHER ==
[2017-12-24 17:18] VITALS: TEMP 97.4
[2017-12-24] MEDS ORDERED: ONDANSETRON 4 MG/2 ML VIAL IVP STA (17:29)
[2017-12-24] MEDS ORDERED: SODIUM CHLORIDE 0.9% 1,000 ML IV STA (17:29)
[2017-12-24] MEDS ORDERED: KETOROLAC 30 MG/ML 1 ML VIAL IVP STA (17:32)
[2017-12-24] MEDS ORDERED: methylPREDNISolone SOD SUCCI 125 MG/2 ML VIAL IV STA (17:32)
--- NOTE | 2017-12-24 17:43 | ED ---
General Adult HPI - General Chief complaint: Nausea/Vomiting/Diarrhea Stated complaint: Cough Time Seen by Provider: 12/24/17 17:20 Source: patient Mode of arrival: ambulatory Limitations: no limitations - History of Present Illness Initial comments: Patient is a 37-year-old female presenting for cough and abdominal discomfort. Patient states that for last week, she has been having sneezing, congestion and productive cough. She denies any fevers or chills and states that for the last 2 days, she has had an upset stomach were she had nausea and diarrhea but no vomiting. She states that there is some increased urination and lower back pain but no vaginal discharge. - Related Data Previous Rx's Medication Instructions Recorded Azithromycin [Zithromax] 0 mg PO DIRECTED #6 tab 12/24/17 Sulfamethox-Tmp 800-160Mg [Bactrim 1 tab PO Q12HR 3 Days #6 tab 12/24/17 DS 800-160 mg] predniSONE 50 mg PO DAILY #5 tablet 12/24/17 Allergies Allergy/AdvReac Type Severity Reaction Status Date / Time No Known Allergies Allergy Verified 12/24/17 17:15 Review of Systems ROS Statement: Those systems with pertinent positive or pertinent negative responses have been documented in the HPI. Constitutional: Negative for chills, and fever. Positive for fatigue HENT: Positive for congestion and rhinorrhea. Respiratory: Negative for chest tightness, shortness of breath and wheezing. Positive for cough Cardiovascular: Negative for chest pain and palpitations. Gastrointestinal: Positive for abdominal pain and nausea/diarrhea. Negative for abdominal distention, nausea/ Genitourinary: Negative for dysuria. Positive for increased frequency. Negative for urinary retention Musculoskeletal: Positive for back pain, negative for neck pain and neck stiffness. Skin: Negative for color change. Neurological: Negative for dizziness, speech difficulty, weakness and light- headedness. Psychiatric/Behavioral: Negative for agitation and confusion. Negative for anxiety ROS Other: All systems not noted in ROS Statement are negative. Past Medical History Past Medical History: No Reported History Additional Past Medical History / Comment(s): kidney infection, ovarian cyst, migraine History of Any Multi-Drug Resistant Organisms: ESBL Date of last positivie culture/infection: 07/28/16 MDRO Source:: ESBL URINE Past Surgical History: Orthopedic Surgery, Tubal Ligation Additional Past Surgical History / Comment(s): cervical, ovarian cyst Past Psychological History: Anxiety, Depression Smoking Status: Current every day smoker Past Alcohol Use History: Occasional Past Drug Use History: None Reported, Cocaine, Marijuana, Methamphetamine General Exam - General Exam Comments Initial Comments: Constitutional: Pt is oriented to person, place, and time. Pt appears well- developed and well-nourished. No distress. HENT: Head: Normocephalic and atraumatic. Eyes: EOM are normal. Neck: Normal range of motion. Neck supple. Cardiovascular: Tachycardia present, regular rhythm, S1 normal, S2 normal and normal heart sounds. Exam reveals no gallop and no friction rub. No murmur heard. Pulmonary/Chest: Effort normal and breath sounds normal. No tachypnea and no bradypnea. No respiratory distress. No wheezes or rales noted. Abdominal: Soft. Bowel sounds are normal. Pt exhibits no shifting dullness, no distension, no pulsatile liver, no fluid wave, no abdominal bruit and no ascites. There is no tenderness. There is no rigidity, no rebound, no guarding, no tenderness at McBurney's point and negative Domingo's sign. Musculoskeletal: Normal range of motion. Neurological: Pt is alert and oriented to person, place, and time. No cranial nerve deficit. Skin: Skin is warm and dry. No rash noted. Pt is not diaphoretic. No erythema. No pallor. Psychiatric: Pt has a normal mood and affect. Pt behavior is normal. Thought content normal. Limitations: no limitations Course Vital Signs 12/24/17 12/24/17 12/24/17 17:15 17:25 19:20 Temperature 97.4 F L Pulse Rate 107 H 67 Respiratory 18 22 18 Rate Blood Pressure 121/79 105/61 O2 Sat by Pulse 100 99 Oximetry Medical Decision Making - Medical Decision Making Laboratory studies showed that there was no signs of leukocytosis, anemia, transaminitis or pancreatitis. However, urinalysis was consistent with urinary tract infection for which the patient was given Bactrim. Additionally, chest x- ray was read as a possible right lower infiltrate and therefore the patient was given azithromycin. However, it is thought that there is more likely to be bronchitis and patient was given steroids as well. Upon disposition, the patient's vital signs had normalized and there was very low suspicion for pulmonary embolism and the signs and symptoms were consistent with bronchitis/ upper respiratory infection. Because of this, d-dimer was not performed.Explained all labs and diagnostic test results and that we will discharge the patient home and patient is to follow up with PCP in 1-2 days and return to the ED if symptoms worsen. Pt is agreeable to plan. - Lab Data Result diagrams: 12/24/17 17:42 12/24/17 17:42 Lab Results 12/24/17 12/24/17 12/24/17 Range/Units 17:42 17:42 17:42 WBC 8.2 (3.8-10.6) k/uL RBC 5.84 H (3.80-5.40) m/uL Hgb 11.7 (11.4-16.0) gm/dL Hct 38.4 (34.0-46.0) % MCV 65.7 L (80.0-100.0) fL MCH 20.0 L (25.0-35.0) pg MCHC 30.4 L (31.0-37.0) g/dL RDW 14.9 (11.5-15.5) % Plt Count 240 (150-450) k/uL Neutrophils % 70 % Lymphocytes % 20 % Monocytes % 4 % Eosinophils % 5 % Basophils % 0 % Neutrophils # 5.7 (1.3-7.7) k/uL Lymphocytes # 1.6 (1.0-4.8) k/uL Monocytes # 0.3 (0-1.0) k/uL Eosinophils # 0.4 (0-0.7) k/uL Basophils # 0.0 (0-0.2) k/uL Hypochromasia Marked Microcytosis Marked Sodium 140 (137-145) mmol/L Potassium 4.0 (3.5-5.1) mmol/L Chloride 107 (98-107) mmol/L Carbon Dioxide 27 (22-30) mmol/L Anion Gap 6 mmol/L BUN 8 (7-17) mg/dL Creatinine 0.68 (0.52-1.04) mg/dL Est GFR (CKD-EPI)AfAm >90 (>60 ml/min/1.73 sqM) Est GFR (CKD-EPI)NonAf >90 (>60 ml/min/1.73 sqM) Glucose 99 (74-99) mg/dL Calcium 9.6 (8.4-10.2) mg/dL Magnesium 2.1 (1.6-2.3) mg/dL Total Bilirubin 1.2 (0.2-1.3) mg/dL AST 22 (14-36) U/L ALT 19 (9-52) U/L Alkaline Phosphatase 58 (38-126) U/L Total Protein 7.4 (6.3-8.2) g/dL Albumin 4.3 (3.5-5.0) g/dL Lipase 222 (23-300) U/L Urine Color Yellow Urine Appearance Cloudy H (Clear) Urine pH 6.0 (5.0-8.0) Ur Specific [place] 1.020 (1.001-1.035) Urine Protein Trace H (Negative) Urine Glucose (UA) Negative (Negative) Urine Ketones Negative (Negative) Urine Blood Negative (Negative) Urine Nitrite Negative (Negative) Urine Bilirubin Negative (Negative) Urine Urobilinogen 3.0 (<2.0) mg/dL Ur Leukocyte Esterase Large H (Negative) Urine WBC 37 H (0-5) /hpf Ur Squamous Epith Cells 7 H (0-4) /hpf Urine Bacteria Rare H (None) /hpf Urine Mucus Many H (None) /hpf Urine HCG, Qual (Not Detectd) 12/24/17 Range/Units 17:42 WBC (3.8-10.6) k/uL RBC (3.80-5.40) m/uL Hgb (11.4-16.0) gm/dL Hct (34.0-46.0) % MCV (80.0-100.0) fL MCH (25.0-35.0) pg MCHC (31.0-37.0) g/dL RDW (11.5-15.5) % Plt Count (150-450) k/uL Neutrophils % % Lymphocytes % % Monocytes % % Eosinophils % % Basophils % % Neutrophils # (1.3-7.7) k/uL Lymphocytes # (1.0-4.8) k/uL Monocytes # (0-1.0) k/uL Eosinophils # (0-0.7) k/uL Basophils # (0-0.2) k/uL Hypochromasia Microcytosis Sodium (137-145) mmol/L Potassium (3.5-5.1) mmol/L Chloride (98-107) mmol/L Carbon Dioxide (22-30) mmol/L Anion Gap mmol/L BUN (7-17) mg/dL Creatinine (0.52-1.04) mg/dL Est GFR (CKD-EPI)AfAm (>60 ml/min/1.73 sqM) Est GFR (CKD-EPI)NonAf (>60 ml/min/1.73 sqM) Glucose (74-99) mg/dL Calcium (8.4-10.2) mg/dL Magnesium (1.6-2.3) mg/dL Total Bilirubin (0.2-1.3) mg/dL AST (14-36) U/L ALT (9-52) U/L Alkaline Phosphatase (38-126) U/L Total Protein (6.3-8.2) g/dL Albumin (3.5-5.0) g/dL Lipase (23-300) U/L Urine Color Urine Appearance (Clear) Urine pH (5.0-8.0) Ur Specific [place] (1.001-1.035) Urine Protein (Negative) Urine Glucose (UA) (Negative) Urine Ketones (Negative) Urine Blood (Negative) Urine Nitrite (Negative) Urine Bilirubin (Negative) Urine Urobilinogen (<2.0) mg/dL Ur Leukocyte Esterase (Negative) Urine WBC (0-5) /hpf Ur Squamous Epith Cells (0-4) /hpf Urine Bacteria (None) /hpf Urine Mucus (None) /hpf Urine HCG, Qual Not Detected (Not Detectd) Disposition Clinical Impression: Bronchitis, UTI (urinary tract infection), Nausea Disposition: HOME SELF-CARE Condition: Good Prescriptions: Azithromycin [Zithromax] 0 mg PO DIRECTED #6 tab predniSONE 50 mg PO DAILY #5 tablet Sulfamethox-Tmp 800-160Mg [Bactrim DS 800-160 mg] 1 tab PO Q12HR 3 Days #6 tab Is patient prescribed a controlled substance at d/c from ED?: No Referrals: Amilcar Griffin MD [Primary Care Provider] - 1-2 days Time of Disposition: 19:20
--- NOTE | 2017-12-24 18:21 | XR ---
EXAMINATION TYPE: XR chest 2V DATE OF EXAM: 12/24/2017 COMPARISON: NONE HISTORY: Cough, congestion, and body aches TECHNIQUE: Frontal and lateral views of the chest are obtained. FINDINGS: There is a patchy right basilar opacity that appears more linear on the lateral view and c ould relate to peribronchial cuffing or developing airspace disease. Pulmonary hyperinflation is seen without flattening of the diaphragms or biapical lucency. Therefore this likely represents large ins piratory effort rather than underlying emphysematous change. There is no pulmonary vascular congestio n, pleural effusion, or pneumothorax seen. The cardiac silhouette size is within normal limits. Th e osseous structures are intact. IMPRESSION: Linear right basilar vague opacity not well appreciated on the lateral view. This could represent early developing pneumonia or findings of bronchitis.
[2017-12-24 18:36] LABS: Appearance,Urine Cloudy (Clear); Bacteria,Urine Rare /hpf; Basophils % (A) 0 %; Bilirubin,Urine Negative (Negative); Blood,Urine Negative (Negative); Color,Urine Yellow; Eosinophils # (A) 0.4 k/uL (0-0.7); Eosinophils % (A) 5 %; Glucose,Urine (UA) Negative (Negative); HCT 38.4 % (34.0-46.0); HGB 11.7 gm/dL (11.4-16.0); Hypochromasia Marked; Ketones,Urine Negative (Negative); Leukocyte Esterase,Urine Large (Negative); Lymphocytes # (A) 1.6 k/uL (1.0-4.8); Lymphocytes % (A) 20 %; MCHC 30.4 g/dL (31.0-37.0); MCV 65.7 fL (80.0-100.0); Mean Platelet Volume 6.6; Microcytosis Marked; Monocytes # (A) 0.3 k/uL (0-1.0); Monocytes % (A) 4 %; Mucus,Urine Many /hpf; Neutrophils # (A) 5.7 k/uL (1.3-7.7); Neutrophils % (A) 70 %; Nitrite,Urine Negative (Negative); Platelet Count 240 k/uL (150-450); Protein,Urine Trace (Negative); RBC 5.84 m/uL (3.80-5.40); RDW 14.9 % (11.5-15.5); Squamous Epithelial Cell,Urine 7 /hpf (0-4); WBC 8.2 k/uL (3.8-10.6)
[2017-12-24 18:46] LABS: ALT 19 U/L (9-52); AST 22 U/L (14-36); Albumin 4.3 g/dL (3.5-5.0); Alkaline Phosphatase 58 U/L (38-126); Anion Gap 6 mmol/L; Blood Urea Nitrogen 8 mg/dL (7-17); Calcium 9.6 mg/dL (8.4-10.2); Carbon Dioxide 27 mmol/L (22-30); Chloride 107 mmol/L (98-107); Glucose 99 mg/dL (74-99); Lipase 222 U/L (23-300); Magnesium 2.1 mg/dL (1.6-2.3); Sodium 140 mmol/L (137-145); Total Bilirubin 1.2 mg/dL (0.2-1.3); Total Protein 7.4 g/dL (6.3-8.2)
[2017-12-24 19:21] VITALS: BP 105/61; PULSE 67; RESP 18
== END 2017-12-24 19:33 | disposition home or self-care (01) ==
LOC: EC 17:09
DX: J40 Bronchitis, not specified as acute or chronic (principal); N39.0 Urinary tract infection, site not specified; R11.0 Nausea; F17.200 Nicotine dependence, unspecified, uncomplicated
CPT/HCPCS: 99284; 96374; 96375 ×2; 96361 ×2; 36415; 80053; 83690; 83735; 85025; 81001; 81025; 87086; 71046; J2930; J2405; J1885

== ENCOUNTER 2018-01-11 18:55 | Emergency (ER) | payer OTHER ==
[2018-01-11] MEDS ORDERED: KETOROLAC 30 MG/ML 1 ML VIAL IVP STA (19:27)
[2018-01-11] MEDS ORDERED: SODIUM CHLORIDE 0.9% 1,000 ML IV ONE (19:27)
[2018-01-11 19:40] LABS: Anisocytosis Slight; Basophils % (A) 0 %; Eosinophils # (A) 0.4 k/uL (0-0.7); Eosinophils % (A) 5 %; HCT 37.9 % (34.0-46.0); HGB 12.1 gm/dL (11.4-16.0); Hypochromasia Slight; Lymphocytes # (A) 1.4 k/uL (1.0-4.8); Lymphocytes % (A) 18 %; MCH 21.1 pg (25.0-35.0); MCHC 31.9 g/dL (31.0-37.0); MCV 66.2 fL (80.0-100.0); Mean Platelet Volume 7.7; Microcytosis Marked; Monocytes # (A) 0.3 k/uL (0-1.0); Monocytes % (A) 4 %; Neutrophils # (A) 5.4 k/uL (1.3-7.7); Neutrophils % (A) 70 %; Platelet Count 210 k/uL (150-450); RBC 5.73 m/uL (3.80-5.40); RDW 17.5 % (11.5-15.5); WBC 7.7 k/uL (3.8-10.6)
[2018-01-11 19:49] LABS: ALT 28 U/L (9-52); AST 37 U/L (14-36); Alkaline Phosphatase 65 U/L (38-126); Anion Gap 7 mmol/L; Blood Urea Nitrogen 8 mg/dL (7-17); Calcium 9.1 mg/dL (8.4-10.2); Carbon Dioxide 25 mmol/L (22-30); Chloride 109 mmol/L (98-107); Glucose 112 mg/dL (74-99); INR 0.9 (<1.2); Partial Thromboplastin Time 25.7 sec (22.0-30.0); Potassium 4.2 mmol/L (3.5-5.1); Prothrombin Time 10.2 sec (9.0-12.0); Sodium 141 mmol/L (137-145); Total Bilirubin 1.6 mg/dL (0.2-1.3); Total Protein 6.9 g/dL (6.3-8.2)
[2018-01-11 19:52] LABS: HCG,Qualitative Serum Not Detected
[2018-01-11 20:27] LABS: Amorphous Sediment,Urine Rare /hpf; Appearance,Urine Clear (Clear); Bilirubin,Urine Negative (Negative); Blood,Urine Moderate (Negative); Color,Urine Yellow; Glucose,Urine (UA) Negative (Negative); Ketones,Urine Negative (Negative); Leukocyte Esterase,Urine Moderate (Negative); Mucus,Urine Rare /hpf; Nitrite,Urine Negative (Negative); PH, Urine 6.5 (5.0-8.0); Protein,Urine Negative (Negative); RBC,Urine 6 /hpf (0-5); Squamous Epithelial Cell,Urine 2 /hpf (0-4); Urobilinogen,Urine <2.0 mg/dL (<2.0); WBC,Urine 24 /hpf (0-5)
--- NOTE | 2018-01-11 20:53 | US ---
EXAMINATION TYPE: US transvaginal DATE OF EXAM: 01/11/2018 COMPARISON: NONE CLINICAL HISTORY: Pain. Heavy bleeding and llq pain. TECHNIQUE: Transvaginal (TV). Transabdominal sonographic images of the pelvis were acquired. Trans vaginal sonographic images were medically necessary to better assess the following anatomy: EXAM MEASUREMENTS: Uterus: 8.5 x 4.4 x 4.5 cm Endometrial Stripe: 0.5 cm Right Ovary: 3.6 x 1.9 x 2.1 cm complex Left Ovary: 2.9 x 1.3 x 2.4 cm 1. Uterus: Retroflexed Fluid seen in cervix. 2. Endometrium: Echogenic areas seen within. 3. Right Ovary: wnl 4. Left Ovary: wnl Spectral, color and waveform doppler imaging shows good arterial and venous flow within the ovaries ; there is no evidence for ovarian torsion. 5. Bilateral Adnexa: wnl 6. Posterior cul-de-sac: wnl IMPRESSION: There is fluid in the cervical canal. This is consistent with bleeding. No adnexal mass. No evidence of ovarian torsion.
[2018-01-11] MEDS ORDERED: MORPHINE SULFATE 2 MG/ML SYRINGE IVP STA (21:01)
--- NOTE | 2018-01-11 21:19 | ED ---
Abdominal Pain HPI - General Chief Complaint: Abdominal Pain Stated Complaint: Abdominal Pain/Vaginal Bleeding Time Seen by Provider: 01/11/18 19:06 Source: patient Mode of arrival: EMS Limitations: no limitations - History of Present Illness Initial Comments: 37-year-old female patient presents to the emergency department today for complaints of pelvic pain and heavy vaginal bleeding. Patient states this started a couple of hours ago. Patient states that she went through 4 tampons. States that her pain is over her left ovary. She describes as a sharp stabbing pain. She is also reporting low back pain with this. Patient denies any history of similar symptoms. States that she is . She denies any current chance of . She denies any hematuria, dysuria, urinary urgency , urinary frequency. She denies any abnormal vaginal discharge leading up to onset of the bleeding today. States her last period was December 10. 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 Patient denies any recent rash, fever, chills, shortness breath, chest pain, diarrhea, constipation, numbness, tingling, dizziness, weakness, headache, visual changes, or any other complaints. - Related Data Home Medications Medication Instructions Recorded Confirmed busPIRone HCL [Buspar] 7.5 mg PO BID 01/11/18 01/11/18 Previous Rx's Medication Instructions Recorded Ibuprofen [Motrin] 600 mg PO Q8HR PRN #30 tab 01/11/18 Allergies Allergy/AdvReac Type Severity Reaction Status Date / Time No Known Allergies Allergy Verified 01/11/18 19:22 Review of Systems ROS Statement: Those systems with pertinent positive or pertinent negative responses have been documented in the HPI. ROS Other: All systems not noted in ROS Statement are negative. Past Medical History Past Medical History: No Reported History Additional Past Medical History / Comment(s): kidney infection, ovarian cyst, migraine History of Any Multi-Drug Resistant Organisms: ESBL Date of last positivie culture/infection: 07/28/16 MDRO Source:: ESBL URINE Past Surgical History: Orthopedic Surgery, Tubal Ligation Additional Past Surgical History / Comment(s): cervical, ovarian cyst Past Psychological History: Anxiety, Depression Smoking Status: Current every day smoker Past Alcohol Use History: Occasional Past Drug Use History: None Reported, Cocaine, Marijuana, Methamphetamine General Exam Limitations: no limitations General appearance: alert, in no apparent distress, other (This is a well- developed, well-nourished adult female patient in no acute distress. Vital signs upon presentation are temperature 98.8F, pulse 91, respirations 16, blood pressure 120/82, pulse ox 100% on room air.) Eye exam: Present: normal appearance, PERRL, EOMI. Absent: scleral icterus, conjunctival injection, periorbital swelling ENT exam: Present: normal exam, normal oropharynx, mucous membranes moist Respiratory exam: Present: normal lung sounds bilaterally. Absent: respiratory distress, wheezes, rales, rhonchi, stridor Cardiovascular Exam: Present: regular rate, normal rhythm, normal heart sounds. Absent: systolic murmur, diastolic murmur, rubs, gallop, clicks GI/Abdominal exam: Present: soft, tenderness (Lower abdominal tenderness especially over the left pelvic region.), normal bowel sounds. Absent: distended, guarding, rebound, rigid External exam: Present: normal external exam Speculum exam: Present: vaginal bleeding (small amount of dark red bleeding). Absent: erythema, laceration By manual exam: Present: adnexal tenderness, uterine tenderness Neurological exam: Present: alert, oriented X3, CN II-XII intact Psychiatric exam: Present: normal affect, normal mood Skin exam: Present: warm, dry, intact, normal color. Absent: rash Course Vital Signs 01/11/18 01/11/18 18:59 21:27 Temperature 98.8 F 98 F Pulse Rate 91 77 Respiratory 16 18 Rate Blood Pressure 120/82 119/88 O2 Sat by Pulse 100 97 Oximetry Medical Decision Making - Medical Decision Making 37-year-old female patient presents the emergency department today for complaints of pelvic pain and vaginal bleeding. Physical examination did reveal some left lower quadrant abdominal tenderness. Pelvic exam showed a small amount of dark red bleeding in the vaginal vault. Patient did have generalized tenderness with bimanual exam. Labs reviewed and are unremarkable. Transvaginal ultrasound was obtained and showed no acute abnormalities. Did discuss findings and results with the patient. Did discuss that this could be related to her menstrual bleeding. She is instructed to follow-up with [employer] IDENTIFICATION TECHNICIAN for recheck as soon as possible. Return parameters were discussed in detail. She verbalizes understanding and agrees with this plan - Lab Data Result diagrams: 01/11/18 19:05 01/11/18 19:05 Lab Results 01/11/18 01/11/18 01/11/18 Range/Units 19:05 19:05 19:05 WBC 7.7 (3.8-10.6) k/uL RBC 5.73 H (3.80-5.40) m/uL Hgb 12.1 (11.4-16.0) gm/dL Hct 37.9 (34.0-46.0) % MCV 66.2 L (80.0-100.0) fL MCH 21.1 L (25.0-35.0) pg MCHC 31.9 (31.0-37.0) g/dL RDW 17.5 H (11.5-15.5) % Plt Count 210 (150-450) k/uL Neutrophils % 70 % Lymphocytes % 18 % Monocytes % 4 % Eosinophils % 5 % Basophils % 0 % Neutrophils # 5.4 (1.3-7.7) k/uL Lymphocytes # 1.4 (1.0-4.8) k/uL Monocytes # 0.3 (0-1.0) k/uL Eosinophils # 0.4 (0-0.7) k/uL Basophils # 0.0 (0-0.2) k/uL Hypochromasia Slight Anisocytosis Slight Microcytosis Marked PT 10.2 (9.0-12.0) sec INR 0.9 (<1.2) APTT 25.7 (22.0-30.0) sec Sodium 141 (137-145) mmol/L Potassium 4.2 (3.5-5.1) mmol/L Chloride 109 H (98-107) mmol/L Carbon Dioxide 25 (22-30) mmol/L Anion Gap 7 mmol/L BUN 8 (7-17) mg/dL Creatinine 0.73 (0.52-1.04) mg/dL Est GFR (CKD-EPI)AfAm >90 (>60 ml/min/1.73 sqM) Est GFR (CKD-EPI)NonAf >90 (>60 ml/min/1.73 sqM) Glucose 112 H (74-99) mg/dL Calcium 9.1 (8.4-10.2) mg/dL Total Bilirubin 1.6 H (0.2-1.3) mg/dL AST 37 H (14-36) U/L ALT 28 (9-52) U/L Alkaline Phosphatase 65 (38-126) U/L Total Protein 6.9 (6.3-8.2) g/dL Albumin 4.0 (3.5-5.0) g/dL HCG, Qual Not Detected Urine Color Urine Appearance (Clear) Urine pH (5.0-8.0) Ur Specific [place] (1.001-1.035) Urine Protein (Negative) Urine Glucose (UA) (Negative) Urine Ketones (Negative) Urine Blood (Negative) Urine Nitrite (Negative) Urine Bilirubin (Negative) Urine Urobilinogen (<2.0) mg/dL Ur Leukocyte Esterase (Negative) Urine RBC (0-5) /hpf Urine WBC (0-5) /hpf Ur Squamous Epith Cells (0-4) /hpf Amorphous Sediment (None) /hpf Urine Mucus (None) /hpf 01/11/18 Range/Units 19:58 WBC (3.8-10.6) k/uL RBC (3.80-5.40) m/uL Hgb (11.4-16.0) gm/dL Hct (34.0-46.0) % MCV (80.0-100.0) fL MCH (25.0-35.0) pg MCHC (31.0-37.0) g/dL RDW (11.5-15.5) % Plt Count (150-450) k/uL Neutrophils % % Lymphocytes % % Monocytes % % Eosinophils % % Basophils % % Neutrophils # (1.3-7.7) k/uL Lymphocytes # (1.0-4.8) k/uL Monocytes # (0-1.0) k/uL Eosinophils # (0-0.7) k/uL Basophils # (0-0.2) k/uL Hypochromasia Anisocytosis Microcytosis PT (9.0-12.0) sec INR (<1.2) APTT (22.0-30.0) sec Sodium (137-145) mmol/L Potassium (3.5-5.1) mmol/L Chloride (98-107) mmol/L Carbon Dioxide (22-30) mmol/L Anion Gap mmol/L BUN (7-17) mg/dL Creatinine (0.52-1.04) mg/dL Est GFR (CKD-EPI)AfAm (>60 ml/min/1.73 sqM) Est GFR (CKD-EPI)NonAf (>60 ml/min/1.73 sqM) Glucose (74-99) mg/dL Calcium (8.4-10.2) mg/dL Total Bilirubin (0.2-1.3) mg/dL AST (14-36) U/L ALT (9-52) U/L Alkaline Phosphatase (38-126) U/L Total Protein (6.3-8.2) g/dL Albumin (3.5-5.0) g/dL HCG, Qual Urine Color Yellow Urine Appearance Clear (Clear) Urine pH 6.5 (5.0-8.0) Ur Specific [place] 1.010 (1.001-1.035) Urine Protein Negative (Negative) Urine Glucose (UA) Negative (Negative) Urine Ketones Negative (Negative) Urine Blood Moderate H (Negative) Urine Nitrite Negative (Negative) Urine Bilirubin Negative (Negative) Urine Urobilinogen <2.0 (<2.0) mg/dL Ur Leukocyte Esterase Moderate H (Negative) Urine RBC 6 H (0-5) /hpf Urine WBC 24 H (0-5) /hpf Ur Squamous Epith Cells 2 (0-4) /hpf Amorphous Sediment Rare H (None) /hpf Urine Mucus Rare H (None) /hpf - Radiology Data Radiology results: report reviewed, image reviewed Transvaginal ultrasound of the pelvis was obtained. Report was reviewed in its entirety. Impression by Dr. Jeffers shows fluid in the cervical canal. Consistent with bleeding. No adnexal mass. No evidence of ovarian torsion. Disposition Clinical Impression: Pelvic pain, Dysfunctional uterine bleeding Disposition: HOME SELF-CARE Condition: Good Instructions: Dysfunctional Uterine Bleeding (ED), Pelvic Pain in Women (ED) Additional Instructions: Increase fluids. Take medications as directed. Follow-up with your primary care physician for recheck in 1-2 days but follow-up with [employer] IDENTIFICATION TECHNICIAN for recheck since possible. Return immediately for any new, worsening, or concerning symptoms Prescriptions: Ibuprofen [Motrin] 600 mg PO Q8HR PRN #30 tab PRN Reason: Pain Is patient prescribed a controlled substance at d/c from ED?: No Referrals: Amilcar Griffin MD [Primary Care Provider] - 1-2 days Nara Richards DO [Doctor of Osteopathic Medicine] - 1-2 days Time of Disposition: 21:19
[2018-01-11 21:28] VITALS: BP 119/88; PULSE 77; RESP 18; TEMP 98
== END 2018-01-11 21:27 | disposition home or self-care (01) ==
LOC: EC 18:55
DX: N93.8 Other specified abnormal uterine and vaginal bleeding (principal); R10.2 Pelvic and perineal pain; M54.5 Low back pain; F41.9 Anxiety disorder, unspecified; F32.9 Major depressive disorder, single episode, unspecified; F17.200 Nicotine dependence, unspecified, uncomplicated; Z98.51 Tubal ligation status; Z79.899 Other long term (current) drug therapy; Z87.42 Personal history of other diseases of the female genital tract
CPT/HCPCS: 36415; 80053; 85025; 85610; 85730; 81001; 84703; 93975; 76830; 99285; 96374; 96375; 96361; J1885; J2270

== ENCOUNTER 2018-01-21 22:28 | Emergency (ER) | payer OTHER ==
[2018-01-21] MEDS ORDERED: LORazepam 1 MG TAB PO STA (23:43)
[2018-01-21] MEDS ORDERED: busPIRone HCl 5 MG TAB PO STA (23:43)
[2018-01-21] MEDS ORDERED: IBUPROFEN 600 MG TAB PO STA (23:44)
[2018-01-21] MEDS ORDERED: ACETAMINOPHEN TAB 325 MG TAB PO STA (23:44)
--- NOTE | 2018-01-22 00:40 | ED ---
General Adult HPI - General Chief complaint: Headache Stated complaint: Headache Time Seen by Provider: 01/21/18 23:06 Source: patient Mode of arrival: ambulatory Limitations: no limitations - History of Present Illness Initial comments: 37-year-old female patient presents to the emergency department today for evaluation of increased anxiety and headache. Patient states that symptoms of anxiety worsened after running out of her BuSpar 2 weeks ago. States over the last 2 days it has been more intense. States that with that she does have pressure type headache with some mild chest discomfort. She denies any nausea, vomiting, shortness of breath, cough, hemoptysis. Patient denies any dizziness or weakness with this. Denies any blurred or double vision. She denies any numbness, tingling, or weakness to her extremities. Patient denies any recent rash, fever, chills, abdominal pain, nausea, vomiting, diarrhea, constipation, back pain, hematuria, dysuria, urinary urgency, urinary frequency, headache, visual changes, or any other complaints. - Related Data Home Medications Medication Instructions Recorded Confirmed busPIRone HCL [Buspar] 7.5 mg PO BID 01/11/18 01/11/18 Previous Rx's Medication Instructions Recorded Ibuprofen [Motrin] 600 mg PO Q8HR PRN #30 tab 01/11/18 busPIRone HCL [Buspar] 7.5 mg PO BID #28 tab 01/22/18 Allergies Allergy/AdvReac Type Severity Reaction Status Date / Time No Known Allergies Allergy Verified 01/21/18 22:52 Review of Systems ROS Statement: Those systems with pertinent positive or pertinent negative responses have been documented in the HPI. ROS Other: All systems not noted in ROS Statement are negative. Past Medical History Past Medical History: No Reported History Additional Past Medical History / Comment(s): kidney infection, ovarian cyst, migraine History of Any Multi-Drug Resistant Organisms: ESBL Date of last positivie culture/infection: 07/28/16 MDRO Source:: ESBL URINE Past Surgical History: Orthopedic Surgery, Tubal Ligation Additional Past Surgical History / Comment(s): cervical, ovarian cyst Past Psychological History: Anxiety, Depression Smoking Status: Current every day smoker Past Alcohol Use History: Occasional Past Drug Use History: None Reported, Cocaine, Marijuana, Methamphetamine General Exam Limitations: no limitations General appearance: alert, in no apparent distress, other (Physical well- developed, well-nourished adult female patient in no acute distress. Vital signs upon presentation are temperature 97.9F, pulse 92, respirations 16, blood pressure 130/86, pulse ox 98% on room air.) Eye exam: Present: normal appearance, PERRL, EOMI. Absent: scleral icterus, conjunctival injection, periorbital swelling ENT exam: Present: normal exam, normal oropharynx, mucous membranes moist Respiratory exam: Present: normal lung sounds bilaterally. Absent: respiratory distress, wheezes, rales, rhonchi, stridor, chest wall tenderness Cardiovascular Exam: Present: regular rate, normal rhythm, normal heart sounds. Absent: systolic murmur, diastolic murmur, rubs, gallop, clicks GI/Abdominal exam: Present: soft, normal bowel sounds. Absent: distended, tenderness, guarding, rebound, rigid Neurological exam: Present: alert, oriented X3, CN II-XII intact Psychiatric exam: Present: normal affect, normal mood Skin exam: Present: warm, dry, intact, normal color. Absent: rash Course Vital Signs 01/21/18 01/22/18 01/22/18 22:50 00:04 01:13 Temperature 97.9 F 97.7 F Pulse Rate 92 72 66 Respiratory 16 18 16 Rate Blood Pressure 130/86 100/59 98/53 O2 Sat by Pulse 98 97 99 Oximetry Medical Decision Making - Medical Decision Making 37-year-old female patient presents to the emergency department today for reporting increased anxiety. Physical examination is unremarkable. She is neurologically intact with no focal deficits per Patient was given dose of her BuSpar which has been out of for the last 2 weeks. She is also given 1 mg of Ativan. She is monitored for a period of time, upon reevaluation she does report she is feeling much improved and would like to be discharged home. She will be given a prescription for 2 weeks with of her BuSpar that she can get in to see her primary care physician for refill. Return parameters were discussed in detail. She verbalizes understanding and agrees with this plan. Disposition Clinical Impression: Anxiety Disposition: HOME SELF-CARE Condition: Good Instructions: Anxiety (ED) Additional Instructions: Take medications as directed. Follow-up with your primary care physician as soon as possible for medication refills. Return immediately for any new, worsening, or concerning symptoms. Prescriptions: busPIRone HCL [Buspar] 7.5 mg PO BID #28 tab Is patient prescribed a controlled substance at d/c from ED?: No Referrals: Amilcar Griffin MD [Primary Care Provider] - 1-2 days Time of Disposition: 00:40
[2018-01-22 01:16] VITALS: BP 98/53; PULSE 66; RESP 16; TEMP 97.7
== END 2018-01-22 01:18 | disposition home or self-care (01) ==
LOC: EC 22:28
DX: F41.9 Anxiety disorder, unspecified (principal); R07.89 Other chest pain; R51 Headache; F32.9 Major depressive disorder, single episode, unspecified; F17.200 Nicotine dependence, unspecified, uncomplicated; Z79.899 Other long term (current) drug therapy
CPT/HCPCS: 99283

== ENCOUNTER 2018-02-09 17:40 | Emergency (ER) | payer OTHER ==
[2018-02-09 18:31] VITALS: TEMP 98.2
[2018-02-09] MEDS ORDERED: methylPREDNISolone SOD SUCCI 125 MG/2 ML VIAL IV STA (18:57)
[2018-02-09] MEDS ORDERED: CEPHALEXIN 500MG STARTER PACK 4 CAP BTL PO STA (19:01)
[2018-02-09] MEDS ORDERED: diphenhydrAMINE 50 MG CAP PO STA (19:01)
--- NOTE | 2018-02-09 19:02 | ED ---
Skin/Abscess/FB HPI - General Chief complaint: Skin/Abscess/Foreign Body Stated complaint: Hands/legs swelling Time Seen by Provider: 02/09/18 18:41 Source: patient, RN notes reviewed, old records reviewed Mode of arrival: ambulatory Limitations: no limitations - History of Present Illness Initial comments: 37-year-old female presents emergency department today with chief complaint of rash of her bilateral feet. Patient reports that she has had a history of psoriasis. Patient reports that the rash has become increasing pruritic. She also states that she's noticed a rash spreading in the webspaces of her hands. She states that she's noticed hand swelling today as well. Patient reports that she has history of cocaine abuse in remission. She denies any STDs. She denies any fevers or chills. Patient states that she previously saw Dr. Mcnamara for her psoriasis. - Related Data Previous Rx's Medication Instructions Recorded busPIRone HCL [Buspar] 7.5 mg PO BID #28 tab 01/22/18 Hydrocortisone Cream 1 applic TOPICAL QID #60 gm 02/09/18 [Hydrocortisone 1% Cream] Permethrin 5% Cream [Elimite] 1 applic TOPICAL ONCE #60 cream..g. 02/09/18 Sulfamethox-Tmp 800-160Mg [Bactrim 2 tab PO Q12HR #40 tab 02/09/18 DS 800-160 mg] predniSONE 10 mg PO DAILY #15 tab 02/09/18 Allergies Allergy/AdvReac Type Severity Reaction Status Date / Time No Known Allergies Allergy Verified 02/09/18 18:59 Review of Systems ROS Statement: Those systems with pertinent positive or pertinent negative responses have been documented in the HPI. ROS Other: All systems not noted in ROS Statement are negative. Past Medical History Past Medical History: No Reported History Additional Past Medical History / Comment(s): kidney infection, ovarian cyst, migraine History of Any Multi-Drug Resistant Organisms: ESBL Date of last positivie culture/infection: 07/28/16 MDRO Source:: ESBL URINE Past Surgical History: Orthopedic Surgery, Tubal Ligation Additional Past Surgical History / Comment(s): cervical, ovarian cyst Past Psychological History: Anxiety, Depression Smoking Status: Current every day smoker Past Alcohol Use History: Occasional Past Drug Use History: None Reported, Cocaine, Marijuana, Methamphetamine General Exam - General Exam Comments Initial Comments: 37-year-old female. Alert and oriented. No distress. Limitations: no limitations General appearance: alert, in no apparent distress Head exam: Present: atraumatic, normocephalic, normal inspection Eye exam: Present: normal appearance, PERRL, EOMI. Absent: scleral icterus, conjunctival injection, periorbital swelling ENT exam: Present: normal exam, mucous membranes moist Neck exam: Present: normal inspection. Absent: tenderness, meningismus, lymphadenopathy Respiratory exam: Present: normal lung sounds bilaterally. Absent: respiratory distress, wheezes, rales, rhonchi, stridor Cardiovascular Exam: Present: regular rate, normal rhythm, normal heart sounds. Absent: systolic murmur, diastolic murmur, rubs, gallop, clicks GI/Abdominal exam: Present: soft, normal bowel sounds. Absent: distended, tenderness, guarding, rebound, rigid Extremities exam: Present: other (Patient has evidence of cellulitis over bilateral feet swelling over the dorsum her feet. Normal pulses. Saphenous likely consistent with psoriasis. The Patient has an underlying cellulitis related to psoriasis. Muscle concern for possibility of scabies with the pruritus between the webspaces of patient's fingers and toes. She is a few papular lesions over her left hand.) Back exam: Present: normal inspection Neurological exam: Present: alert, oriented X3, CN II-XII intact Psychiatric exam: Present: normal affect, normal mood Skin exam: Present: warm, dry, intact, normal color. Absent: rash Course Vital Signs 02/09/18 18:29 Temperature 98.2 F Pulse Rate 85 Respiratory 16 Rate Blood Pressure 132/93 O2 Sat by Pulse 100 Oximetry Medical Decision Making - Medical Decision Making Patient is a 37-year-old female presents emergency room today with complaints of rash and swelling over bilateral feet and some rash on her hands were swelling. She has some papular reasons between her finger spaces of her left hand. Possibly scabies, as it is very pruritic. She also has history of psoriasis. Patient appears to have an overlying cellulitis likely from scratching from her psoriasis. We'll put the Patient on steroids, antibiotics for cellulitis, and permethrin cream to treat for scabies as well as a steroid cream for pain. Discussed following up with Dermatology. Return parameters discussed. - Lab Data Result diagrams: 02/09/18 19:15 02/09/18 19:15 Lab Results 02/09/18 02/09/18 Range/Units 19:15 19:15 WBC 8.4 (3.8-10.6) k/uL RBC 5.67 H (3.80-5.40) m/uL Hgb 11.3 L (11.4-16.0) gm/dL Hct 37.5 (34.0-46.0) % MCV 66.1 L (80.0-100.0) fL MCH 20.0 L (25.0-35.0) pg MCHC 30.3 L (31.0-37.0) g/dL RDW 15.2 (11.5-15.5) % Plt Count 207 (150-450) k/uL Neutrophils % 66 % Lymphocytes % 21 % Monocytes % 5 % Eosinophils % 6 % Basophils % 1 % Neutrophils # 5.5 (1.3-7.7) k/uL Lymphocytes # 1.7 (1.0-4.8) k/uL Monocytes # 0.4 (0-1.0) k/uL Eosinophils # 0.5 (0-0.7) k/uL Basophils # 0.0 (0-0.2) k/uL Hypochromasia Slight Microcytosis Marked Sodium 140 (137-145) mmol/L Potassium 4.5 (3.5-5.1) mmol/L Chloride 109 H (98-107) mmol/L Carbon Dioxide 25 (22-30) mmol/L Anion Gap 6 mmol/L BUN 8 (7-17) mg/dL Creatinine 0.67 (0.52-1.04) mg/dL Est GFR (CKD-EPI)AfAm >90 (>60 ml/min/1.73 sqM) Est GFR (CKD-EPI)NonAf >90 (>60 ml/min/1.73 sqM) Glucose 99 (74-99) mg/dL Calcium 9.2 (8.4-10.2) mg/dL Disposition Clinical Impression: Cellulitis, Scabies, Psoriasis Disposition: HOME SELF-CARE Condition: Good Instructions: Cellulitis (ED) Additional Instructions: Patient advised to follow-up with primary care provider. Return to emergency department if any alarming signs or symptoms occur. Take medication as prescribed. Patient should treat for scabies with covering with permethrin cream, washing all clothing and bedding in hot water. Sleep with the cream on, and wash off in the morning. Repeat treatment in one week. Prescriptions: Hydrocortisone Cream [Hydrocortisone 1% Cream] 1 applic TOPICAL QID #60 gm Permethrin 5% Cream [Elimite] 1 applic TOPICAL ONCE #60 cream..g. predniSONE 10 mg PO DAILY #15 tab Sulfamethox-Tmp 800-160Mg [Bactrim DS 800-160 mg] 2 tab PO Q12HR #40 tab Is patient prescribed a controlled substance at d/c from ED?: No Referrals: Amilcar Griffin MD [Primary Care Provider] - 1-2 days Rafi Escobedo MD [STAFF PHYSICIAN] - 1-2 days Time of Disposition: 19:50
[2018-02-09 19:33] LABS: Anion Gap 6 mmol/L; Basophils % (A) 1 %; Blood Urea Nitrogen 8 mg/dL (7-17); Calcium 9.2 mg/dL (8.4-10.2); Carbon Dioxide 25 mmol/L (22-30); Chloride 109 mmol/L (98-107); Eosinophils # (A) 0.5 k/uL (0-0.7); Eosinophils % (A) 6 %; Glucose 99 mg/dL (74-99); HCT 37.5 % (34.0-46.0); HGB 11.3 gm/dL (11.4-16.0); Hypochromasia Slight; Lymphocytes # (A) 1.7 k/uL (1.0-4.8); Lymphocytes % (A) 21 %; MCHC 30.3 g/dL (31.0-37.0); MCV 66.1 fL (80.0-100.0); Mean Platelet Volume 7.1; Microcytosis Marked; Monocytes # (A) 0.4 k/uL (0-1.0); Monocytes % (A) 5 %; Neutrophils # (A) 5.5 k/uL (1.3-7.7); Neutrophils % (A) 66 %; Platelet Count 207 k/uL (150-450); Potassium 4.5 mmol/L (3.5-5.1); RBC 5.67 m/uL (3.80-5.40); RDW 15.2 % (11.5-15.5); Sodium 140 mmol/L (137-145); WBC 8.4 k/uL (3.8-10.6)
[2018-02-09 20:15] VITALS: BP 132/80; PULSE 88; RESP 18
== END 2018-02-09 20:10 | disposition home or self-care (01) ==
LOC: EC 17:40
DX: L03.116 Cellulitis of left lower limb (principal); L03.115 Cellulitis of right lower limb; B86 Scabies; L40.9 Psoriasis, unspecified; F17.200 Nicotine dependence, unspecified, uncomplicated
CPT/HCPCS: 36415; 80048; 85025; 99284; 96374; J2930

== ENCOUNTER 2018-03-28 12:42 | Emergency (ER) | payer OTHER ==
[2018-03-28 12:47] VITALS: BP 120/72; PULSE 93; RESP 20
[2018-03-28 12:51] VITALS: TEMP 97
--- NOTE | 2018-03-28 13:11 | ED ---
General Adult HPI - General Chief complaint: Upper Respiratory Infection Stated complaint: congestion Time Seen by Provider: 03/28/18 12:57 Source: patient, RN notes reviewed Mode of arrival: ambulatory Limitations: no limitations - History of Present Illness Initial comments: Patient 38 year old female presenting to the emergency room today multiple complaints. Patient does admit that she's had cough congestion over the last 2 days. Does admit to sputum production it's been green in color. Patient does admit to some aches. No recorded temperature at home. She does admit that she woke up this morning also with a dental abscess. She states that this in the past. Looking the left side. Denies any drainage or discharge at this time. Patient denies any complaints or symptoms. Patient denies any recent fever, chills, shortness of breath, chest pain, back pain, abdominal pain, nausea or vomiting, headaches or visual changes, or any other complaints. - Related Data Previous Rx's Medication Instructions Recorded busPIRone HCL [Buspar] 7.5 mg PO BID #28 tab 01/22/18 Amoxicillin 500 mg PO Q8H 10 Days day 03/28/18 Ibuprofen [Motrin] 600 mg PO Q6HR PRN #40 day 03/28/18 Allergies Allergy/AdvReac Type Severity Reaction Status Date / Time No Known Allergies Allergy Verified 03/28/18 12:54 Review of Systems ROS Statement: Those systems with pertinent positive or pertinent negative responses have been documented in the HPI. ROS Other: All systems not noted in ROS Statement are negative. Past Medical History Past Medical History: No Reported History Additional Past Medical History / Comment(s): kidney infection, ovarian cyst, migraine History of Any Multi-Drug Resistant Organisms: ESBL Date of last positivie culture/infection: 07/28/16 MDRO Source:: ESBL URINE Past Surgical History: Orthopedic Surgery, Tubal Ligation Additional Past Surgical History / Comment(s): cervical, ovarian cyst Past Psychological History: Anxiety, Depression Smoking Status: Current every day smoker Past Alcohol Use History: Occasional Past Drug Use History: Cocaine, Marijuana, Methamphetamine General Exam - General Exam Comments Initial Comments: General: The patient is awake and alert, in no distress, and does not appear acutely ill. Eye: No nystagmus. There is normal conjunctiva bilaterally. No signs of icterus. Ears, nose, mouth and throat: Does have abscess to the left upper gumline. Neck: The neck is supple, there is no tenderness or JVD. Cardiovascular: There is a regular rate and rhythm. No murmur, rub or gallop is appreciated. Respiratory: Lungs are clear to auscultation, respirations are non-labored, breath sounds are equal. No wheezes, stridor, rales, or rhonchi. Musculoskeletal: Normal ROM, no tenderness. Neurological: A&O x 3. CN II-XII intact, There are no obvious motor or sensory deficits. Coordination appears grossly intact. Speech is normal. Skin: Skin is warm and dry and no rashes or lesions are noted. Psychiatric: Cooperative, appropriate mood & affect, normal judgment. Limitations: no limitations Course Vital Signs 03/28/18 03/28/18 12:44 12:50 Temperature 97 F L Pulse Rate 93 Respiratory 20 Rate Blood Pressure 120/72 O2 Sat by Pulse 100 Oximetry Medical Decision Making - Medical Decision Making Discussed with patient about draining abscess here in the emergency room she has declined. She states she does not want to do that. Patient will be given antibiotics cover for infection. Patient's upper respiratory symptoms advised most likely is viral. Advised to increase oral fluids. Patient will be discharged home. Disposition Clinical Impression: Dental abscess, Upper respiratory infection Disposition: HOME SELF-CARE Condition: Good Instructions (If sedation given, give patient instructions): Upper Respiratory Infection (ED) Additional Instructions: Please use medication as discussed. Please follow-up with family doctor in the next 2 days of symptoms have not improved. Please return to emergency room if the symptoms increase or worsen or for any other concerns. Prescriptions: Amoxicillin 500 mg PO Q8H 10 Days day Ibuprofen [Motrin] 600 mg PO Q6HR PRN #40 day PRN Reason: Pain Is patient prescribed a controlled substance at d/c from ED?: No Referrals: Amilcar Griffin MD [Primary Care Provider] - 1-2 days Time of Disposition: 13:11
== END 2018-03-28 13:45 | disposition home or self-care (01) ==
LOC: EC 12:42
DX: J06.9 Acute upper respiratory infection, unspecified (principal); K04.7 Periapical abscess without sinus; F17.200 Nicotine dependence, unspecified, uncomplicated; Z53.29 Procedure and treatment not carried out because of patient's decision for other reasons
CPT/HCPCS: 99283

== ENCOUNTER 2018-04-08 12:53 | Emergency (ER) | payer OTHER ==
[2018-04-08 13:13] VITALS: RESP 18
[2018-04-08] MEDS ORDERED: IBUPROFEN 600 MG TAB PO STA (13:19)
--- NOTE | 2018-04-08 13:23 | ED ---
URI HPI - General Chief Complaint: Upper Respiratory Infection Stated Complaint: Cough Time Seen by Provider: 04/08/18 13:14 Source: patient Mode of arrival: ambulatory Limitations: no limitations - History of Present Illness Initial Comments: 38yo female presenting today for chief complaint of cough chills and body aches. Patient states she has had a cough for the past week, she admits to increased sputum production. Patient states she does not associate fever but does admit to chills. Patient states she also has hot flashes. Patient denies any chest pain, she states at times it does hurt in her chest with cough denies any pain in the chest and absence of cough. Patient denies any hemoptysis. Patient denies any lower extremity edema, IV drug use. Patient states at times she coughs so hard she vomits. Patient states she has had bronchitis in the past and this is similar in symptoms. Patient denies any recent shortness of breath, back pain, abdominal pain, nausea,numbness or tingling, dysuria or hematuria, constipation or diarrhea, headaches or visual changes, or any other complaints. Upon arrival pt HR elevated remaining ROS (-). Pt appears well, nontoxic-no signs of distress. - Related Data Previous Rx's Medication Instructions Recorded busPIRone HCL [Buspar] 7.5 mg PO BID #28 tab 01/22/18 Amoxicillin 500 mg PO Q8H 10 Days day 03/28/18 Ibuprofen [Motrin] 600 mg PO Q6HR PRN #40 day 03/28/18 Azithromycin [Zithromax Z-pack] 0 mg PO DIRECTED #6 tab 04/08/18 predniSONE 20 mg PO DAILY 5 Days #5 tab 04/08/18 Allergies Allergy/AdvReac Type Severity Reaction Status Date / Time No Known Allergies Allergy Verified 04/08/18 16:54 Review of Systems ROS Statement: Those systems with pertinent positive or pertinent negative responses have been documented in the HPI. ROS Other: All systems not noted in ROS Statement are negative. Past Medical History Past Medical History: No Reported History Additional Past Medical History / Comment(s): kidney infection, ovarian cyst, migraine History of Any Multi-Drug Resistant Organisms: ESBL Date of last positivie culture/infection: 07/28/16 MDRO Source:: ESBL URINE Past Surgical History: Orthopedic Surgery, Tubal Ligation Additional Past Surgical History / Comment(s): cervical, ovarian cyst Past Psychological History: Anxiety, Depression Smoking Status: Current every day smoker Past Alcohol Use History: Occasional Past Drug Use History: None Reported, Cocaine, Marijuana, Methamphetamine General Exam - General Exam Comments Initial Comments: General: The patient is awake and alert, in no distress, and does not appear toxic Eye: +3 mm pupils are equal, round and reactive to light, extra-ocular movements are intact. No nystagmus. There is normal conjunctiva bilaterally. No signs of icterus. Ears, nose, mouth and throat: There are moist mucous membranes and no oral lesions. Multiple missing teeth and poor dentition. Oropharynx is mildly erythematous there is no tonsillar enlargement exudates or lesion. Tympanic membranes are within normal limits bilaterally no pain palpation the mastoid Neck: The neck is supple, there is no tenderness or JVD. No anterior cervical lymphadenopathy Cardiovascular: There is a regular rate and rhythm. No murmur, rub or gallop is appreciated. Respiratory: Lungs are clear to auscultation, respirations are non-labored, breath sounds are equal. No wheezes, stridor, rales, or rhonchi. Lung hughes are clear. Dry cough on exam. No areas concerning for consolidation. Gastrointestinal: Soft, non-distended, non-tender abdomen without masses or organomegaly noted. There is no rebound or guarding present. No CVA tenderness. Bowel sounds are unremarkable. Musculoskeletal: Normal ROM, no tenderness. Strength 5/5. Sensation intact. Radial and DP pulses equal bilaterally 2+. Neurological: A&O x 3. CN II-XII intact, There are no obvious motor or sensory deficits. Coordination appears grossly intact. Speech is normal. Skin: Skin is warm and dry and no rashes or lesions are noted. No LE edema. Psychiatric: Cooperative, appropriate mood & affect, normal judgment. Limitations: no limitations Course Vital Signs 04/08/18 04/08/18 13:11 14:19 Temperature 98.4 F 97.8 F Pulse Rate 110 H 100 Respiratory 18 18 Rate Blood Pressure 120/76 114/63 O2 Sat by Pulse 98 98 Oximetry Medical Decision Making - Medical Decision Making Every day smoker presenting today for chief complaint of cough or sputum production. Patient denies chest pain or shortness of breath. Patient states at times with a super hard cough she does have pain, denies pain absence of cough. Patient denies any hemoptysis. Patient states it feels similar to when she has had bronchitis in the past. Pt has no concerning physical examination finding. CXR (-). Pt given z-pack and steroids for treatment of bronchitis. Pt appears pleased with plan and discharge denies questions at this time. Discussed case with attending Dr. Lin prior to patients discharge, reviewed laboratory and imaging studies agreeable with plan and discharge. - Lab Data Lab Results 04/08/18 Range/Units 13:21 Influenza Type A RNA Not Detected (Not Detectd) Influenza Type B (PCR) Not Detected (Not Detectd) Disposition Clinical Impression: Bronchitis Disposition: HOME SELF-CARE Condition: Good Instructions (If sedation given, give patient instructions): Acute Bronchitis ( ED) Additional Instructions: Please use medication as discussed. Please follow-up with family doctor in the next 2 days.. Please return to emergency room if the symptoms increase or worsen or for any other concerns. Prescriptions: Azithromycin [Zithromax Z-pack] 0 mg PO DIRECTED #6 tab predniSONE 20 mg PO DAILY 5 Days #5 tab Is patient prescribed a controlled substance at d/c from ED?: No Referrals: Amilcar Griffin MD [Primary Care Provider] - 1-2 days Time of Disposition: 14:12
--- NOTE | 2018-04-08 14:02 | XR ---
EXAMINATION TYPE: XR chest 2V DATE OF EXAM: 04/08/2018 COMPARISON: Chest x-ray December 24, 2017. HISTORY: Cough and congestion for one week, history of tobacco use TECHNIQUE: Frontal and lateral views of the chest are obtained. FINDINGS: There is no focal air space opacity, pleural effusion, or pneumothorax seen. The cardiac silhouette size is within normal limits. The osseous structures are intact. IMPRESSION: No suspicious acute pulmonary process on current study.
[2018-04-08 14:20] VITALS: BP 114/63; PULSE 100; TEMP 97.8
== END 2018-04-08 14:18 | disposition home or self-care (01) ==
LOC: EC 12:53
DX: J40 Bronchitis, not specified as acute or chronic (principal); K08.409 Partial loss of teeth, unspecified cause, unspecified class; N95.1 Menopausal and female climacteric states; F17.200 Nicotine dependence, unspecified, uncomplicated
CPT/HCPCS: 71046; 87502; 99283

== ENCOUNTER 2018-04-08 16:44 | Emergency (ER) | payer OTHER ==
[2018-04-08 16:54] VITALS: BP 127/75; PULSE 102; RESP 16; TEMP 97.6
[2018-04-08] MEDS ORDERED: LORazepam 1 MG TAB PO STA (16:56)
[2018-04-08] MEDS ORDERED: LORazepam 2 MG/ML INJ IV STA (16:57)
--- NOTE | 2018-04-08 17:05 | ED ---
General Adult HPI - General Chief complaint: Anxiety Stated complaint: Anxiety Time Seen by Provider: 04/08/18 16:48 Source: patient, RN notes reviewed Mode of arrival: EMS Limitations: no limitations - History of Present Illness Initial comments: Patient is a pleasant 38-year-old female presenting to the emergency department for anxiety. Patient does have a long-standing history of anxiety. Patient states she was here earlier for cough. Patient states there is no worsening of the symptoms. Patient states she also had one or 2 episodes of nausea and vomiting earlier. No nausea at this time. Patient refuses any nausea medication. Patient does request something for anxiety. Patient denies any suicidal or homicidal thoughts. No new physical complaints except for the cough that she has been experiencing. Patient does occasionally drink alcohol and does smoke marijuana. No hallucinations. Patient states she has been off of her buspar for the past 3 months - Related Data Previous Rx's Medication Instructions Recorded busPIRone HCL [Buspar] 7.5 mg PO BID #28 tab 01/22/18 Amoxicillin 500 mg PO Q8H 10 Days day 03/28/18 Ibuprofen [Motrin] 600 mg PO Q6HR PRN #40 day 03/28/18 Azithromycin [Zithromax Z-pack] 0 mg PO DIRECTED #6 tab 04/08/18 predniSONE 20 mg PO DAILY 5 Days #5 tab 04/08/18 Allergies Allergy/AdvReac Type Severity Reaction Status Date / Time No Known Allergies Allergy Verified 04/08/18 16:54 Review of Systems ROS Statement: Those systems with pertinent positive or pertinent negative responses have been documented in the HPI. Constitutional: Denies: fever Eyes: Denies: eye pain ENT: Denies: ear pain Respiratory: Reports: cough. Denies: dyspnea Cardiovascular: Denies: chest pain Endocrine: Denies: fatigue Gastrointestinal: Reports: nausea, vomiting Genitourinary: Denies: dysuria Musculoskeletal: Denies: back pain Skin: Denies: rash Neurological: Denies: weakness Psychiatric: Reports: anxiety Past Medical History Past Medical History: No Reported History Additional Past Medical History / Comment(s): kidney infection, ovarian cyst, migraine History of Any Multi-Drug Resistant Organisms: ESBL Date of last positivie culture/infection: 07/28/16 MDRO Source:: ESBL URINE Past Surgical History: Orthopedic Surgery, Tubal Ligation Additional Past Surgical History / Comment(s): cervical, ovarian cyst Past Psychological History: Anxiety, Depression Smoking Status: Current every day smoker Past Alcohol Use History: Occasional Past Drug Use History: None Reported, Cocaine, Marijuana, Methamphetamine General Exam Limitations: no limitations General appearance: alert, in no apparent distress Head exam: Present: atraumatic Eye exam: Present: normal appearance, PERRL ENT exam: Present: normal oropharynx Neck exam: Present: normal inspection Respiratory exam: Present: normal lung sounds bilaterally Cardiovascular Exam: Present: regular rate, normal rhythm GI/Abdominal exam: Present: soft. Absent: tenderness Extremities exam: Present: normal inspection. Absent: pedal edema, calf tenderness Neurological exam: Present: alert Psychiatric exam: Present: normal affect, normal mood Skin exam: Present: normal color Course Vital Signs 04/08/18 16:52 Temperature 97.6 F Pulse Rate 102 H Respiratory 16 Rate Blood Pressure 127/75 O2 Sat by Pulse 100 Oximetry Medical Decision Making - Medical Decision Making Patient is comfortable with Ativan and discharged. Patient is updated that she will need to follow-up with her primary care doctor for BuSpar prescription. Disposition Clinical Impression: Acute anxiety Disposition: HOME SELF-CARE Condition: Stable Instructions (If sedation given, give patient instructions): Generalized Anxiety Disorder (ED) Additional Instructions: Please follow-up with primary care physician in the next couple days for recheck. Return for worsening symptoms or other concerns. Is patient prescribed a controlled substance at d/c from ED?: No Referrals: Amilcar Griffin MD [Primary Care Provider] - 1-2 days Time of Disposition: 17:05
== END 2018-04-08 17:35 | disposition home or self-care (01) ==
LOC: EC 16:44
DX: F41.9 Anxiety disorder, unspecified (principal); F17.200 Nicotine dependence, unspecified, uncomplicated
CPT/HCPCS: 99283; 96374; J2060

== ENCOUNTER 2018-11-07 15:42 | Emergency (ER) | payer OTHER ==
[2018-11-07 15:56] VITALS: TEMP 98.3
--- NOTE | 2018-11-07 16:35 | ED ---
General Adult HPI - General Chief complaint: Chest Pain Stated complaint: Chest pain Time Seen by Provider: 11/07/18 15:50 Source: patient, EMS, RN notes reviewed Mode of arrival: EMS Limitations: no limitations - History of Present Illness Initial comments: This is a 38-year-old female with past medical history significant for alcoholism and methamphetamine abuse. Patient states she stopped 17 days ago. Patient states 2 days ago she started having sharp chest pain in the center of her chest she states it gets worse and better but is never gone away completely is been there constant for 3 days.. Patient states it does radiate to her both arm but is not currently radiating to her arm. Patient also complains some epigastric abdominal pain on occasion but not currently. Patient denies nausea vomiting diarrhea. Patient denies any recent fever chills or cough. Patient denies headache patient denies numbness weakness. Patient denies any li ghtheadedness dizziness or near syncopal episode. Patient denies any palpitations. Patient denies any lower extremity swelling or calf tenderness. Patient states he symptoms are very reminiscent to her of her anxiety symptoms. - Related Data Home Medications Medication Instructions Recorded Confirmed Acetaminophen Tab [Tylenol Tab] 500 mg PO Q6H PRN 11/07/18 11/07/18 Allergies Allergy/AdvReac Type Severity Reaction Status Date / Time No Known Allergies Allergy Verified 11/07/18 16:29 Review of Systems ROS Statement: Those systems with pertinent positive or pertinent negative responses have been documented in the HPI. ROS Other: All systems not noted in ROS Statement are negative. Past Medical History Past Medical History: No Reported History Additional Past Medical History / Comment(s): kidney infection, ovarian cyst, migraine History of Any Multi-Drug Resistant Organisms: ESBL Date of last positivie culture/infection: 07/28/16 MDRO Source:: ESBL URINE Past Surgical History: Orthopedic Surgery, Tubal Ligation Additional Past Surgical History / Comment(s): cervical, ovarian cyst Past Psychological History: Anxiety, Depression Smoking Status: Current every day smoker Past Alcohol Use History: Occasional Past Drug Use History: None Reported, Cocaine, Marijuana, Methamphetamine General Exam - General Exam Comments Initial Comments: GENERAL: Patient is well-developed and well-nourished. Patient is nontoxic and well- hydrated and is in no acute distress. ENT: Neck is soft and supple. No significant lymphadenopathy is noted. Oropharynx is clear. Moist mucous membranes. Neck has full range of motion without eliciting any pain. EYES: The sclera were anicteric and conjunctiva were pink and moist. Extraocular movements were intact and pupils were equal round and reactive to light. Eyelids were unremarkable. PULMONARY: Unlabored respirations. Good breath sounds bilaterally. No audible rales rhonchi or wheezing was noted. CARDIOVASCULAR: There is a regular rate and rhythm without any murmurs gallops or rubs. Chest pain is reproducible on palpation ABDOMEN: Soft and nontender with normal bowel sounds. No palpable organomegaly was noted. There is no palpable pulsatile mass. SKIN: Skin is clear with no lesions or rashes and otherwise unremarkable. NEUROLOGIC: Patient is alert and oriented x3. Cranial nerves II through XII are grossly intact. Motor and sensory are also intact. Normal speech, volume and content. Symmetrical smile. MUSCULOSKELETAL: Normal extremities with adequate strength and full range of motion. No lower extremity swelling or edema. No calf tenderness. LYMPHATICS: No significant lymphadenopathy is noted PSYCHIATRIC: Normal psychiatric evaluation. Limitations: no limitations Course Vital Signs 11/07/18 11/07/18 11/07/18 15:48 15:50 15:52 Temperature 98.3 F Pulse Rate 87 90 Respiratory 17 Rate Blood Pressure 127/91 127/91 O2 Sat by Pulse 89 L 100 100 Oximetry 11/07/18 11/07/18 11/07/18 16:00 16:10 16:20 Temperature Pulse Rate 78 77 74 Respiratory Rate Blood Pressure 127/91 116/88 116/88 O2 Sat by Pulse 100 100 100 Oximetry 11/07/18 11/07/18 11/07/18 16:30 16:40 16:50 Temperature Pulse Rate 87 90 73 Respiratory Rate Blood Pressure 116/88 99/78 99/78 O2 Sat by Pulse 95 100 Oximetry 11/07/18 11/07/18 11/07/18 17:00 17:10 17:20 Temperature Pulse Rate 70 64 Respiratory Rate Blood Pressure 99/78 109/76 109/76 O2 Sat by Pulse 98 Oximetry 11/07/18 11/07/18 11/07/18 17:30 17:40 17:50 Temperature Pulse Rate 71 68 68 Respiratory Rate Blood Pressure 109/76 107/81 107/81 O2 Sat by Pulse 98 99 99 Oximetry Medical Decision Making - Medical Decision Making EKG shows normal sinus rhythm at 79 bpm SD interval is 138 QRS is 76 QT interval 370 QTC is 424. Patient's EKG shows no ST segment elevation or depression or T wave abnormalities are noted. I went into reevaluate the patient after she received Ativan and she stated that her symptoms had resolved at this time. Patient was comfortable going home. - Lab Data Result diagrams: 11/07/18 16:33 11/07/18 16:33 Lab Results 11/07/18 11/07/18 11/07/18 Range/Units 16:33 16:33 16:33 WBC 8.0 (3.8-10.6) k/uL RBC 6.04 H (3.80-5.40) m/uL Hgb 12.2 (11.4-16.0) gm/dL Hct 40.6 (34.0-46.0) % MCV 67.2 L (80.0-100.0) fL MCH 20.2 L (25.0-35.0) pg MCHC 30.0 L (31.0-37.0) g/dL RDW 14.4 (11.5-15.5) % Plt Count 283 (150-450) k/uL Neutrophils % 68 % Lymphocytes % 18 % Monocytes % 4 % Eosinophils % 6 % Basophils % 1 % Neutrophils # 5.5 (1.3-7.7) k/uL Lymphocytes # 1.5 (1.0-4.8) k/uL Monocytes # 0.4 (0-1.0) k/uL Eosinophils # 0.5 (0-0.7) k/uL Basophils # 0.1 (0-0.2) k/uL Hypochromasia Moderate Microcytosis Marked PT 9.8 (9.0-12.0) sec INR 0.9 (<1.2) APTT 26.0 (22.0-30.0) sec D-Dimer 0.24 (<0.60) mg/L FEU Sodium 140 (137-145) mmol/L Potassium 4.2 (3.5-5.1) mmol/L Chloride 103 (98-107) mmol/L Carbon Dioxide 27 (22-30) mmol/L Anion Gap 10 mmol/L BUN 7 (7-17) mg/dL Creatinine 0.63 (0.52-1.04) mg/dL Est GFR (CKD-EPI)AfAm >90 (>60 ml/min/1.73 sqM) Est GFR (CKD-EPI)NonAf >90 (>60 ml/min/1.73 sqM) Glucose 95 (74-99) mg/dL Calcium 9.6 (8.4-10.2) mg/dL Magnesium 2.1 (1.6-2.3) mg/dL Total Bilirubin 0.7 (0.2-1.3) mg/dL AST 38 H (14-36) U/L ALT 42 (9-52) U/L Alkaline Phosphatase 57 (38-126) U/L Troponin I (0.000-0.034) ng/mL Total Protein 7.9 (6.3-8.2) g/dL Albumin 4.7 (3.5-5.0) g/dL Amylase (30-110) U/L Lipase (23-300) U/L Urine Opiates Screen (NotDetected) Ur Oxycodone Screen (NotDetected) Urine Methadone Screen (NotDetected) Ur Propoxyphene Screen (NotDetected) Ur Barbiturates Screen (NotDetected) U Tricyclic Antidepress (NotDetected) Ur Phencyclidine Scrn (NotDetected) Ur Amphetamines Screen (NotDetected) U Methamphetamines Scrn (NotDetected) U Benzodiazepines Scrn (NotDetected) Urine Cocaine Screen (NotDetected) U Marijuana (THC) Screen (NotDetected) 11/07/18 11/07/18 11/07/18 Range/Units 16:33 16:33 16:33 WBC (3.8-10.6) k/uL RBC (3.80-5.40) m/uL Hgb (11.4-16.0) gm/dL Hct (34.0-46.0) % MCV (80.0-100.0) fL MCH (25.0-35.0) pg MCHC (31.0-37.0) g/dL RDW (11.5-15.5) % Plt Count (150-450) k/uL Neutrophils % % Lymphocytes % % Monocytes % % Eosinophils % % Basophils % % Neutrophils # (1.3-7.7) k/uL Lymphocytes # (1.0-4.8) k/uL Monocytes # (0-1.0) k/uL Eosinophils # (0-0.7) k/uL Basophils # (0-0.2) k/uL Hypochromasia Microcytosis PT (9.0-12.0) sec INR (<1.2) APTT (22.0-30.0) sec D-Dimer (<0.60) mg/L FEU Sodium (137-145) mmol/L Potassium (3.5-5.1) mmol/L Chloride (98-107) mmol/L Carbon Dioxide (22-30) mmol/L Anion Gap mmol/L BUN (7-17) mg/dL Creatinine (0.52-1.04) mg/dL Est GFR (CKD-EPI)AfAm (>60 ml/min/1.73 sqM) Est GFR (CKD-EPI)NonAf (>60 ml/min/1.73 sqM) Glucose (74-99) mg/dL Calcium (8.4-10.2) mg/dL Magnesium (1.6-2.3) mg/dL Total Bilirubin (0.2-1.3) mg/dL AST (14-36) U/L ALT (9-52) U/L Alkaline Phosphatase (38-126) U/L Troponin I <0.012 (0.000-0.034) ng/mL Total Protein (6.3-8.2) g/dL Albumin (3.5-5.0) g/dL Amylase 148 H (30-110) U/L Lipase 213 (23-300) U/L Urine Opiates Screen Not Detected (NotDetected) Ur Oxycodone Screen Not Detected (NotDetected) Urine Methadone Screen Not Detected (NotDetected) Ur Propoxyphene Screen Not Detected (NotDetected) Ur Barbiturates Screen Not Detected (NotDetected) U Tricyclic Antidepress Not Detected (NotDetected) Ur Phencyclidine Scrn Not Detected (NotDetected) Ur Amphetamines Screen Not Detected (NotDetected) U Methamphetamines Scrn Not Detected (NotDetected) U Benzodiazepines Scrn Not Detected (NotDetected) Urine Cocaine Screen Not Detected (NotDetected) U Marijuana (THC) Screen Detected H (NotDetected) Disposition Clinical Impression: Anxiety Disposition: ADMITTED IP TO THIS HOSP Instructions (If sedation given, give patient instructions): Anxiety (ED) Is patient prescribed a controlled substance at d/c from ED?: No Referrals: None,Stated [Primary Care Provider] - 1-2 days Time of Disposition: 19:10
[2018-11-07] MEDS ORDERED: LORazepam 2 MG/ML INJ IV STA (16:36)
[2018-11-07 16:49] LABS: Basophils # (A) 0.1 k/uL (0-0.2); Basophils % (A) 1 %; Eosinophils # (A) 0.5 k/uL (0-0.7); Eosinophils % (A) 6 %; HCT 40.6 % (34.0-46.0); HGB 12.2 gm/dL (11.4-16.0); Hypochromasia Moderate; Lymphocytes # (A) 1.5 k/uL (1.0-4.8); Lymphocytes % (A) 18 %; MCH 20.2 pg (25.0-35.0); MCV 67.2 fL (80.0-100.0); Microcytosis Marked; Monocytes # (A) 0.4 k/uL (0-1.0); Monocytes % (A) 4 %; Neutrophils # (A) 5.5 k/uL (1.3-7.7); Neutrophils % (A) 68 %; Platelet Count 283 k/uL (150-450); RBC 6.04 m/uL (3.80-5.40); RDW 14.4 % (11.5-15.5)
[2018-11-07 17:00] LABS: Amphetamine Screen,Urine Not Detected (NotDetected); Barbiturate Screen,Urine Not Detected (NotDetected); Benzodiazepines Screen,Urine Not Detected (NotDetected); Cocaine Screen,Urine Not Detected (NotDetected); Methadone Screen, Urine Not Detected (NotDetected); Opiate Screen,Urine Not Detected (NotDetected); Oxycodone Screen, Urine Not Detected (NotDetected); Phencyclidine Screen,Urine Not Detected (NotDetected); Tricyclic Antidepressant,Urine Not Detected (NotDetected); Urn Cannabinoid Scrn Detected (NotDetected)
[2018-11-07 17:03] LABS: D-Dimer 0.24 mg/L FEU (<0.60); INR 0.9 (<1.2)
[2018-11-07 17:04] LABS: Prothrombin Time 9.8 sec (9.0-12.0)
[2018-11-07 17:09] LABS: ALT 42 U/L (9-52); AST 38 U/L (14-36); African American GFR (CKD) >90 (>60 ml/min/1.73 sqM); Albumin 4.7 g/dL (3.5-5.0); Alkaline Phosphatase 57 U/L (38-126); Anion Gap 10 mmol/L; Blood Urea Nitrogen 7 mg/dL (7-17); Calcium 9.6 mg/dL (8.4-10.2); Carbon Dioxide 27 mmol/L (22-30); Chloride 103 mmol/L (98-107); Glucose 95 mg/dL (74-99); Magnesium 2.1 mg/dL (1.6-2.3); Potassium 4.2 mmol/L (3.5-5.1); Sodium 140 mmol/L (137-145); Total Bilirubin 0.7 mg/dL (0.2-1.3); Total Protein 7.9 g/dL (6.3-8.2)
[2018-11-07 17:40] LABS: Amylase 148 U/L (30-110)
[2018-11-07 17:54] VITALS: PULSE 68
--- NOTE | 2018-11-07 18:21 | XR ---
EXAMINATION: XR chest 2V DATE AND TIME: 11/07/2018 6:03 PM CLINICAL INDICATION: PHH; Chest Pain TECHNIQUE: Departmental protocol COMPARISON: 04/08/2018 FINDINGS: Prominent bilateral nipple shadows are redemonstrated. The lungs are clear. The pleural spaces are negative. The cardiac silhouette is not enlarged, and the remainder of the mediastinal silhouette is unremarkab le. The skeletal structures and soft tissues are negative for acute findings. IMPRESSION: NO ACUTE PROCESS.
[2018-11-07 20:19] VITALS: BP 107/75; RESP 16
== END 2018-11-07 20:25 | disposition other institution (70) ==
LOC: EC 15:42
DX: F41.9 Anxiety disorder, unspecified (principal); F17.200 Nicotine dependence, unspecified, uncomplicated
CPT/HCPCS: 36415; 93005; 85379; 80053; 82150; 83690; 83735; 84484; 85025; 85610; 85730; 80306; 71046; 99285; 96374; J2060

== ENCOUNTER 2019-01-16 03:16 | Emergency (ER) | payer OTHER ==
[2019-01-16 03:23] VITALS: BP 130/82; PULSE 98; RESP 18; TEMP 97.6
[2019-01-16] MEDS ORDERED: PHENAZOPYRIDINE 200 MG TAB PO STA (03:45)
[2019-01-16 04:11] LABS: Appearance,Urine Cloudy (Clear); Bacteria,Urine Occasional /hpf; Bilirubin,Urine Negative (Negative); Blood,Urine Negative (Negative); Color,Urine Light Yellow; Glucose,Urine (UA) Negative (Negative); Hyaline Casts,Urine 1 /lpf (0-2); Ketones,Urine Negative (Negative); Leukocyte Esterase,Urine Large (Negative); Mucus,Urine Rare /hpf; Nitrite,Urine Negative (Negative); PH, Urine 5.5 (5.0-8.0); Protein,Urine Negative (Negative); RBC,Urine 3 /hpf (0-5); Specific Gravity,Urine 1.006 (1.001-1.035); Squamous Epithelial Cell,Urine 14 /hpf (0-4); Urobilinogen,Urine <2.0 mg/dL (<2.0)
[2019-01-16] MEDS ORDERED: NITROFURANTOIN MONOHYD/M-CRYST 100 MG CAP PO STA (04:12)
--- NOTE | 2019-01-16 04:12 | ED ---
Female Urogenital HPI - General Chief complaint: Urogenital Stated complaint: UTI Source: patient Mode of arrival: ambulatory Limitations: no limitations - History of Present Illness Initial comments: Belle is a pleasant 38-year-old female who presents the emergency department today for evaluation of possible urinary tract infection. Patient reports that for the past 2 days she's been experiencing urinary frequency hesitancy and severe dysuria. Patient was hoping she could drink clear fluids and his symptoms would go away with a progressively worsening which prompted her to come to the ER for evaluation. Patient has had her tubes tied a number of years ago and concern for no concern for sexually transmitted infections and she is in a monogamous relationship with a single partner. Last Menstrual Period: 12/26/18 - Related Data Home Medications Medication Instructions Recorded Confirmed Acetaminophen Tab [Tylenol Tab] 500 mg PO Q6H PRN 11/07/18 11/07/18 Previous Rx's Medication Instructions Recorded Nitrofurantoin Monohyd/M-Cryst 100 mg PO Q12HR #6 cap 01/16/19 [Macrobid] Phenazopyridine HCl [Pyridium] 200 mg PO BID #6 tablet 01/16/19 Sulfamethox-Tmp 800-160Mg [Bactrim 1 tab PO Q12HR #10 tab 01/16/19 DS 800-160 mg] Allergies Allergy/AdvReac Type Severity Reaction Status Date / Time No Known Allergies Allergy Verified 01/16/19 03:23 Review of Systems ROS Statement: Those systems with pertinent positive or pertinent negative responses have been documented in the HPI. ROS Other: All systems not noted in ROS Statement are negative. Past Medical History Past Medical History: No Reported History Additional Past Medical History / Comment(s): kidney infection, ovarian cyst, migraine History of Any Multi-Drug Resistant Organisms: ESBL Date of last positivie culture/infection: 07/28/16 MDRO Source:: ESBL URINE Past Surgical History: Orthopedic Surgery, Tubal Ligation Additional Past Surgical History / Comment(s): cervical, ovarian cyst Past Psychological History: Anxiety, Depression Smoking Status: Current every day smoker Past Alcohol Use History: Occasional Past Drug Use History: None Reported, Cocaine, Marijuana, Methamphetamine General Exam - General Exam Comments Initial Comments: Physical Exam GENERAL: Patient is well-developed and well-nourished. Patient is nontoxic and well-hydrated and is in no distress. HENT: Normocephalic, Atraumatic. EYES: PERRL, EOMI PULMONARY: Unlabored respirations. CARDIOVASCULAR: RRR Warm and well perfused extremities ABDOMEN: Non-distended, tenderness in suprapubic region No pain to percussion in the bilateral flanks SKIN: No rashes or bruising : Deferred NEUROLOGIC: Alert and oriented Normal speech Normal gait MUSCULOSKELETAL: Moving all extremities with no apparent injury PSYCHIATRIC: No SI/HI Limitations: no limitations Course Vital Signs 01/16/19 03:21 Temperature 97.6 F Pulse Rate 98 Respiratory 18 Rate Blood Pressure 130/82 O2 Sat by Pulse 99 Oximetry Medical Decision Making - Medical Decision Making She was seen and evaluated patient with lower urinary tract symptoms declines any concern for sexual transmitted infection declines testing for sexually transmitted infections or sign urinalysis with white blood cells white blood cell clumps and leukocytes bacteria we'll treat empirically for urinary tract infection. Initially patient was written for [employer] however she reports she has no insurance would prefer medications from the free antibiotic list. Patient be given Bactrim for 5 days. Patient was advised she can buy Pyridium [id number] as the brand [employer]zo[employer] or a store brand of urinary tract relief. She was advised to take all of the antibiotic even of her symptoms resolve prior to completing the antibiotics All questions pertaining care were answered return parameters were discussed patient was discharged home in stable condition - Lab Data Lab Results 01/16/19 Range/Units 03:34 Urine Color Light Yellow Urine Appearance Cloudy H (Clear) Urine pH 5.5 (5.0-8.0) Ur Specific [place] 1.006 (1.001-1.035) Urine Protein Negative (Negative) Urine Glucose (UA) Negative (Negative) Urine Ketones Negative (Negative) Urine Blood Negative (Negative) Urine Nitrite Negative (Negative) Urine Bilirubin Negative (Negative) Urine Urobilinogen <2.0 (<2.0) mg/dL Ur Leukocyte Esterase Large H (Negative) Urine RBC 3 (0-5) /hpf Urine WBC 19 H (0-5) /hpf Urine WBC Clumps Occasional H (None) /hpf Ur Squamous Epith Cells 14 H (0-4) /hpf Urine Bacteria Occasional H (None) /hpf Hyaline Casts 1 (0-2) /lpf Urine Mucus Rare H (None) /hpf Disposition Clinical Impression: Urinary tract infection Disposition: HOME SELF-CARE Condition: Stable Instructions (If sedation given, give patient instructions): Urinary Tract Infection in Women (ED) Prescriptions: Sulfamethox-Tmp 800-160Mg [Bactrim DS 800-160 mg] 1 tab PO Q12HR #10 tab Nitrofurantoin Monohyd/M-Cryst [Macrobid] 100 mg PO Q12HR #6 cap Phenazopyridine HCl [Pyridium] 200 mg PO BID #6 tablet Is patient prescribed a controlled substance at d/c from ED?: No Referrals: None,Stated [Primary Care Provider] - 1-2 days
== END 2019-01-16 04:46 | disposition home or self-care (01) ==
LOC: EC 03:16
DX: N39.0 Urinary tract infection, site not specified (principal); F17.200 Nicotine dependence, unspecified, uncomplicated; Z53.20 Procedure and treatment not carried out because of patient's decision for unspecified reasons
CPT/HCPCS: 81001; 87077; 87086; 87186; 99283

== ENCOUNTER 2019-01-16 13:22 | Observation (INO) | payer OTHER ==
[2019-01-16] MEDS ORDERED: KETOROLAC 30 MG/ML 1 ML VIAL IVP STA (14:15)
[2019-01-16] MEDS ORDERED: SODIUM CHLORIDE 0.9% 1,000 ML IV ONE (14:22)
--- NOTE | 2019-01-16 14:28 | ED ---
General Adult HPI - General Source: patient Mode of arrival: ambulatory Limitations: no limitations <Karen Quiroga - Last Filed: 01/16/19 16:20> <Lluvia Alston - Last Filed: 01/16/19 23:43> - General Chief complaint: Chest Pain Stated complaint: flank pain Time Seen by Provider: 01/16/19 14:05 - History of Present Illness Initial comments: 38yo female presenting today for chief complaint of flank pain causing chest pain and shortness of breath. Patient states this morning around 4:35 PM she was diagnosed with a UTI. She states she had dysuria urgency frequency 2 days prior. Patient has a vaginal discharge . Patient denies vaginal bleeding. Patient states that the pain in her flank develops throughout the course in the morning after initial dose of Bactrim. She states the pain is so bad takes her breath away she states it radiates from the flank area around towards the chest slightly. She denies any anterior chest pain. Hemoptysis, leg swelling, IVDU, fevers. Patient admits to lower midline pressure and history of kidney stones. Patient denies any upper back pain or ripping tearing chest pain. Patient denies familial history of CAD prior to age 52. Patient states she is smoker and previous methamphetamine user. Patient denies any other complaints today including vomiting, diarrhea. Patient appears uncomfortable grabbing mid flank bilaterally. (Karen Quiroga) - Related Data Home Medications Medication Instructions Recorded Confirmed No Known Home Medications 01/16/19 01/16/19 Allergies Allergy/AdvReac Type Severity Reaction Status Date / Time No Known Allergies Allergy Verified 01/16/19 16:53 Review of Systems ROS Other: All systems not noted in ROS Statement are negative. <Karen Quiroga - Last Filed: 01/16/19 16:20> ROS Other: All systems not noted in ROS Statement are negative. <Lluvia Alston - Last Filed: 01/16/19 23:43> ROS Statement: Those systems with pertinent positive or pertinent negative responses have been documented in the HPI. Past Medical History Past Medical History: No Reported History Additional Past Medical History / Comment(s): kidney infection, ovarian cyst, migraine History of Any Multi-Drug Resistant Organisms: ESBL Date of last positivie culture/infection: 07/28/16 MDRO Source:: ESBL URINE Past Surgical History: Orthopedic Surgery, Tubal Ligation Additional Past Surgical History / Comment(s): cervical, ovarian cyst Past Psychological History: Anxiety, Depression Smoking Status: Current every day smoker Past Alcohol Use History: Occasional Past Drug Use History: None Reported, Cocaine, Marijuana, Methamphetamine <KyJessica stephensalex Munguia - Last Filed: 01/16/19 16:20> General Exam Limitations: no limitations <KimberJessicaKaren L - Last Filed: 01/16/19 16:20> - General Exam Comments Initial Comments: General: The patient is awake and alert, appears uncomfortable. Eye: Pupils are equal, round and reactive to light, extra-ocular movements are intact. No nystagmus. There is normal conjunctiva bilaterally. No signs of icterus. Ears, nose, mouth and throat: There are moist mucous membranes and no oral lesions. Neck: The neck is supple, there is no tenderness or JVD. Cardiovascular: There is a regular rate and rhythm. No murmur, rub or gallop is appreciated. Respiratory: Lungs are clear to auscultation, respirations are non-labored, breath sounds are equal. No wheezes, stridor, rales, or rhonchi. Gastrointestinal: Soft, non-distended, non-tender abdomen without masses or organomegaly noted. There is no rebound or guarding present. CVA tenderness b/l. Bowel sounds are unremarkable. Musculoskeletal: Normal ROM, no tenderness. Strength 5/5. Sensation intact. Pulses equal bilaterally 2+. Neurological: A&O x 3. CN II-XII intact grossly, There are no obvious motor or sensory deficits. Coordination appears grossly intact. Speech is normal. Skin: Skin is warm and dry and no rashes or lesions are noted. Psychiatric: Cooperative, appropriate mood & affect, normal judgment. (Karen Quiroga) Course Vital Signs 01/16/19 01/16/19 01/16/19 13:37 16:14 18:01 Temperature 97.4 F L 98.6 F 98.8 F Pulse Rate 99 80 63 Respiratory 18 18 18 Rate Blood Pressure 97/66 104/54 106/59 O2 Sat by Pulse 98 98 99 Oximetry EKG Findings - EKG Comments: EKG Findings:: Ventricular rate 90 bpm, SC interval 126 ms, QRS durations any 4 ms, QT/QTC 324/413 ms. This is normal sinus no ST elevation or depression appreciated. Nonspecific T-wave. EKG personally interpreted and reviewed by my attending provider-Dr. Alston <Karne Quiroga - Last Filed: 01/16/19 16:20> Medical Decision Making - Lab Data Result diagrams: 01/16/19 14:32 01/16/19 14:32 <Karen Quiroga - Last Filed: 01/16/19 16:20> - Lab Data Result diagrams: 01/16/19 14:32 01/16/19 14:32 <Lluvia Alston - Last Filed: 01/16/19 23:43> - Medical Decision Making 38-year-old female presenting for flank pain that takes her breath away. Tested + for UTI today. Patient has CVA tenderness. Leukocytosis. Clinical : Nephritis. History of stone CT revealed no evidence of septic stone. Relief with toradol, no current radiation to chest. Patient EKG no acute findings and initial tr oponin (-). Will trend. Patient does not appears toxic however given her discomfort, leukocytosis, BP that is on lower aspect of normal patient will be admitted for IV abx. Patient is agreeable to this admission. Given initial dose of ceftriaxone in the ER. Discussed/reviewed case with attending Dr. Alston who spoek with admitting provider, agreeable to care plan. (Karen Quiroga) I was available for consultation in the emergency department. The history and physical exam were done by the midlevel provider. I was consulted for this patients care. I reviewed the case with the midlevel provider and based on their presentation of the patient, I agree with the assessment, medical decision making and plan of care as documented. Chart was dictated using [employer] dictation software. Attempts were made to correct any dictation errors however some typographical errors may persist. (Lluvia Alston) - Lab Data Lab Results 01/16/19 01/16/19 01/16/19 Range/Units 14:32 14:32 14:32 WBC 17.5 H (3.8-10.6) k/uL RBC 6.27 H (3.80-5.40) m/uL Hgb 12.9 (11.4-16.0) gm/dL Hct 41.2 (34.0-46.0) % MCV 65.7 L (80.0-100.0) fL MCH 20.5 L (25.0-35.0) pg MCHC 31.2 (31.0-37.0) g/dL RDW 14.3 (11.5-15.5) % Plt Count 229 (150-450) k/uL Neutrophils % 91 % Lymphocytes % 5 % Monocytes % 3 % Eosinophils % 2 % Basophils % 0 % Neutrophils # 15.9 H (1.3-7.7) k/uL Lymphocytes # 0.9 L (1.0-4.8) k/uL Monocytes # 0.5 (0-1.0) k/uL Eosinophils # 0.3 (0-0.7) k/uL Basophils # 0.0 (0-0.2) k/uL Hypochromasia Marked Microcytosis Marked Sodium 140 (137-145) mmol/L Potassium 3.7 (3.5-5.1) mmol/L Chloride 106 (98-107) mmol/L Carbon Dioxide 24 (22-30) mmol/L Anion Gap 10 mmol/L BUN 6 L (7-17) mg/dL Creatinine 0.68 (0.52-1.04) mg/dL Est GFR (CKD-EPI)AfAm >90 (>60 ml/min/1.73 sqM) Est GFR (CKD-EPI)NonAf >90 (>60 ml/min/1.73 sqM) Glucose 96 (74-99) mg/dL Calcium 9.9 (8.4-10.2) mg/dL Total Bilirubin 1.2 (0.2-1.3) mg/dL AST 24 (14-36) U/L ALT 19 (9-52) U/L Alkaline Phosphatase 61 (38-126) U/L Troponin I <0.012 (0.000-0.034) ng/mL Total Protein 8.2 (6.3-8.2) g/dL Albumin 5.0 (3.5-5.0) g/dL Urine Color Urine Appearance (Clear) Urine pH (5.0-8.0) Ur Specific [place] (1.001-1.035) Urine Protein (Negative) Urine Glucose (UA) (Negative) Urine Ketones (Negative) Urine Blood (Negative) Urine Nitrite (Negative) Urine Bilirubin (Negative) Urine Urobilinogen (<2.0) mg/dL Ur Leukocyte Esterase (Negative) Urine RBC (0-5) /hpf Urine WBC (0-5) /hpf Ur Squamous Epith Cells (0-4) /hpf Urine Bacteria (None) /hpf Urine Mucus (None) /hpf Urine HCG, Qual (Not Detectd) 01/16/19 01/16/19 Range/Units 15:00 15:00 WBC (3.8-10.6) k/uL RBC (3.80-5.40) m/uL Hgb (11.4-16.0) gm/dL Hct (34.0-46.0) % MCV (80.0-100.0) fL MCH (25.0-35.0) pg MCHC (31.0-37.0) g/dL RDW (11.5-15.5) % Plt Count (150-450) k/uL Neutrophils % % Lymphocytes % % Monocytes % % Eosinophils % % Basophils % % Neutrophils # (1.3-7.7) k/uL Lymphocytes # (1.0-4.8) k/uL Monocytes # (0-1.0) k/uL Eosinophils # (0-0.7) k/uL Basophils # (0-0.2) k/uL Hypochromasia Microcytosis Sodium (137-145) mmol/L Potassium (3.5-5.1) mmol/L Chloride (98-107) mmol/L Carbon Dioxide (22-30) mmol/L Anion Gap mmol/L BUN (7-17) mg/dL Creatinine (0.52-1.04) mg/dL Est GFR (CKD-EPI)AfAm (>60 ml/min/1.73 sqM) Est GFR (CKD-EPI)NonAf (>60 ml/min/1.73 sqM) Glucose (74-99) mg/dL Calcium (8.4-10.2) mg/dL Total Bilirubin (0.2-1.3) mg/dL AST (14-36) U/L ALT (9-52) U/L Alkaline Phosphatase (38-126) U/L Troponin I (0.000-0.034) ng/mL Total Protein (6.3-8.2) g/dL Albumin (3.5-5.0) g/dL Urine Color Brown Urine Appearance Cloudy H (Clear) Urine pH 5.5 (5.0-8.0) Ur Specific [place] 1.012 (1.001-1.035) Urine Protein Negative (Negative) Urine Glucose (UA) Negative (Negative) Urine Ketones Negative (Negative) Urine Blood Negative (Negative) Urine Nitrite Positive H (Negative) Urine Bilirubin Negative (Negative) Urine Urobilinogen 2.0 (<2.0) mg/dL Ur Leukocyte Esterase Large H (Negative) Urine RBC <1 (0-5) /hpf Urine WBC 93 H (0-5) /hpf Ur Squamous Epith Cells 2 (0-4) /hpf Urine Bacteria Rare H (None) /hpf Urine Mucus Many H (None) /hpf Urine HCG, Qual Not Detected (Not Detectd) Disposition Is patient prescribed a controlled substance at d/c from ED?: No Time of Disposition: 15:56 Decision to Admit Reason: Admit from EC Decision Date: 01/16/19 Decision Time: 15:56 <Karen Quiroga - Last Filed: 01/16/19 16:20> <Lluvia Alston - Last Filed: 01/16/19 23:43> Clinical Impression: Chest pain, Pyelonephritis Disposition: ADMITTED IP TO THIS HOSP Condition: Stable
[2019-01-16 14:50] LABS: Basophils % (A) 0 %; Eosinophils # (A) 0.3 k/uL (0-0.7); Eosinophils % (A) 2 %; HCT 41.2 % (34.0-46.0); HGB 12.9 gm/dL (11.4-16.0); Hypochromasia Marked; Lymphocytes # (A) 0.9 k/uL (1.0-4.8); Lymphocytes % (A) 5 %; MCH 20.5 pg (25.0-35.0); MCHC 31.2 g/dL (31.0-37.0); MCV 65.7 fL (80.0-100.0); Mean Platelet Volume 7.4; Microcytosis Marked; Monocytes # (A) 0.5 k/uL (0-1.0); Monocytes % (A) 3 %; Neutrophils # (A) 15.9 k/uL (1.3-7.7); Neutrophils % (A) 91 %; Platelet Count 229 k/uL (150-450); RBC 6.27 m/uL (3.80-5.40); RDW 14.3 % (11.5-15.5); WBC 17.5 k/uL (3.8-10.6)
[2019-01-16 14:55] LABS: ALT 19 U/L (9-52); AST 24 U/L (14-36); African American GFR (CKD) >90 (>60 ml/min/1.73 sqM); Alkaline Phosphatase 61 U/L (38-126); Anion Gap 10 mmol/L; Blood Urea Nitrogen 6 mg/dL (7-17); Calcium 9.9 mg/dL (8.4-10.2); Carbon Dioxide 24 mmol/L (22-30); Chloride 106 mmol/L (98-107); Glucose 96 mg/dL (74-99); Non-African American GFR(CKD) >90 (>60 ml/min/1.73 sqM); Potassium 3.7 mmol/L (3.5-5.1); Sodium 140 mmol/L (137-145); Total Bilirubin 1.2 mg/dL (0.2-1.3); Total Protein 8.2 g/dL (6.3-8.2)
[2019-01-16 15:09] LABS: Appearance,Urine Cloudy (Clear); Bacteria,Urine Rare /hpf; Bilirubin,Urine Negative (Negative); Blood,Urine Negative (Negative); Color,Urine Brown; Glucose,Urine (UA) Negative (Negative); Ketones,Urine Negative (Negative); Leukocyte Esterase,Urine Large (Negative); Mucus,Urine Many /hpf; Nitrite,Urine Positive (Negative); PH, Urine 5.5 (5.0-8.0); Protein,Urine Negative (Negative); RBC,Urine <1 /hpf (0-5); Specific Gravity,Urine 1.012 (1.001-1.035); Squamous Epithelial Cell,Urine 2 /hpf (0-4); WBC,Urine 93 /hpf (0-5)
[2019-01-16] MEDS: SODIUM CHLORIDE 0.9% 1,000 ML IV SCH (15:11)
--- NOTE | 2019-01-16 15:24 | CT ---
EXAMINATION TYPE: CT abdomen pelvis wo con DATE OF EXAM: 01/16/2019 COMPARISON: 04/27/2015 HISTORY: Bilateral flank pain, UTI CT DLP: 382.6 mGycm Automated exposure control for dose reduction was used. TECHNIQUE: Helical acquisition of images was performed from the lung bases through the pelvis. FINDINGS: LUNG BASES: No significant abnormality is appreciated. LIVER/GB: Liver is upper limits of normal size measuring 19 cm in craniocaudal dimension. No focal li demetrio lesion is seen on this unenhanced exam. No radiopaque calculi in the gallbladder. PANCREAS: No significant abnormality is seen. SPLEEN: Spleen is enlarged measuring 15 cm in craniocaudal dimension. ADRENALS: No significant abnormality is seen. KIDNEYS: No nephrolithiasis or hydronephrosis. No perinephric fat stranding or abscess. No urinary bl adder calculus. FREE AIR: No free air is visualized REPRODUCTIVE ORGANS: Small amount of free fluid is likely physiologic in nature. Ovaries are prominen t and may contain follicular or cystic change. The uterus is retroverted. URINARY BLADDER: No significant abnormality is seen. ADENOPATHY: No greater than 1 cm short axis lymph node in the abdomen or pelvis. OSSEOUS STRUCTURES: No significant abnormality is seen. BOWEL: Appendix is air-filled and within normal limits. Mild degree colonic fecal stasis. No dilated large or small bowel. IMPRESSION: 1. NO NEPHROLITHIASIS OR HYDRONEPHROSIS. NO URINARY BLADDER CALCULI. NO PERINEPHRIC ABSCESS. 2. SPLENOMEGALY WITH THE SPLEEN MEASURING 15 CM. 3. SMALL AMOUNT OF FREE FLUID IN THE PELVIS IS LIKELY PHYSIOLOGIC IN NATURE. PROMINENT SIZE OF THE OV XANDER POSSIBLY RELATED TO CYSTIC OR FOLLICULAR CHANGE. IF THERE IS PELVIC PAIN PELVIC ULTRASOUND COUL D BE PERFORMED.
--- NOTE | 2019-01-16 15:28 | XR ---
EXAMINATION TYPE: XR chest 2V DATE OF EXAM: 01/16/2019 COMPARISON: 11/07/2018 HISTORY: Chest pain and shortness of breath TECHNIQUE: Frontal and lateral views of the chest are obtained. FINDINGS: There is no focal air space opacity, pleural effusion, or pneumothorax seen. Pulmonary hy perinflation is seen however no flattening of diaphragms on the lateral view. Hyperinflation is likel y related to the degree of inspiration. The cardiac silhouette size is within normal limits. The os seous structures are intact. IMPRESSION: No acute cardiopulmonary process.
[2019-01-16] MEDS ORDERED: MORPHINE SULFATE 4 MG/ML SYRINGE IV PRN (15:54)
[2019-01-16] MEDS ORDERED: ONDANSETRON 4 MG/2 ML VIAL IVP PRN (15:54)
[2019-01-16] MEDS ORDERED: NALOXONE 0.4 MG/ML 1 ML VIAL IV PRN (15:54)
--- NOTE | 2019-01-16 17:46 | P.HPIM ---
History of Present Illness 38-year-old female came in with complains of right flank pain along with the increased urinary frequency and some mild dysuria patient denied any significant fever chills patient the pain is sharp in nature radiating all over the right back patient denied any hematuria denied any history of nephrolithiasis. Patient's pain is severe. Patient appears to have taken a dose of Bactrim patient the had UTIs in the past. Review of Systems REVIEW OF SYSTEMS: CONSTITUTIONAL: No fever, no malaise, no fatigue. HEENT: No recent visual problems or hearing problems. Denied any sore throat. CARDIOVASCULAR: No chest pain, orthopnea, PND, no palpitations, no syncope. PULMONARY: No shortness of breath, no cough, no hemoptysis. GASTROINTESTINAL: No diarrhea, no nausea, no vomiting, no abdominal pain. NEUROLOGICAL: No headaches, no weakness, no numbness. HEMATOLOGICAL: Denies any bleeding or petechiae. GENITOURINARY: As mentioned in HPI MUSCULOSKELETAL/RHEUMATOLOGICAL: Denies any joint pain, swelling, or any muscle pain. ENDOCRINE: Denies any polyuria or polydipsia. The rest of the 14-point review of systems is negative. Past Medical History Past Medical History: No Reported History Additional Past Medical History / Comment(s): kidney infection, ovarian cyst, migraine History of Any Multi-Drug Resistant Organisms: ESBL Date of last positivie culture/infection: 07/28/16 MDRO Source:: ESBL URINE Past Surgical History: Orthopedic Surgery, Tubal Ligation Additional Past Surgical History / Comment(s): cervical, ovarian cyst Past Psychological History: Anxiety, Depression Smoking Status: Current every day smoker Past Alcohol Use History: Occasional Past Drug Use History: None Reported, Cocaine, Marijuana, Methamphetamine Medications and Allergies Home Medications Medication Instructions Recorded Confirmed Type No Known Home Medications 01/16/19 01/16/19 History Allergies Allergy/AdvReac Type Severity Reaction Status Date / Time No Known Allergies Allergy Verified 01/16/19 16:53 Physical Exam Vitals: Vital Signs Temp Pulse Resp BP Pulse Ox 01/16/19 16:14 98.6 F 80 18 104/54 98 01/16/19 13:37 97.4 F L 99 18 97/66 98 Intake and Output 01/16/19 01/16/19 01/16/19 06:59 14:59 22:59 Other: Weight 56.699 kg PHYSICAL EXAMINATION: GENERAL: The patient is alert and oriented x3, not in any acute distress. Well developed, well nourished. HEENT: Pupils are round and equally reacting to light. EOMI. No scleral icterus. No conjunctival pallor. Normocephalic, atraumatic. No pharyngeal erythema. No thyromegaly. CARDIOVASCULAR: S1 and S2 present. No murmurs, rubs, or gallops. PULMONARY: Chest is clear to auscultation, no wheezing or crackles. ABDOMEN: Soft, , nondistended, normoactive bowel sounds. No palpable organomegaly. Patient does have tenderness in the right flank area and right CVA tenderness MUSCULOSKELETAL: No joint swelling or deformity. EXTREMITIES: No cyanosis, clubbing, or pedal edema. NEUROLOGICAL: Gross neurological examination did not reveal any focal deficits. SKIN: No rashes. Results CBC & Chem 7: 01/16/19 14:32 01/16/19 14:32 Labs: Abnormal Lab Results - Last 24 Hours (Table) 01/16/19 01/16/19 01/16/19 Range/Units 14:32 14:32 15:00 WBC 17.5 H (3.8-10.6) k/uL RBC 6.27 H (3.80-5.40) m/uL MCV 65.7 L (80.0-100.0) fL MCH 20.5 L (25.0-35.0) pg Neutrophils # 15.9 H (1.3-7.7) k/uL Lymphocytes # 0.9 L (1.0-4.8) k/uL BUN 6 L (7-17) mg/dL Urine Appearance Cloudy H (Clear) Urine Nitrite Positive H (Negative) Ur Leukocyte Esterase Large H (Negative) Urine WBC 93 H (0-5) /hpf Urine Bacteria Rare H (None) /hpf Urine Mucus Many H (None) /hpf Assessment and Plan Plan: -Urinary tract infection with possible pyelonephritis: Patient was started on Rocephin urine cultures and blood cultures were obtained not sure if urine cultures will be positive as patient was partially treated for UTI with Bactrim and patient appears to be nitrofurantoin as well. Computed tomography scan of the abdomen was reviewed and do not show any significant a perinephric abscess or calculi initially ordered a ultrasound of the kidneys which will be discontin ued. There is small amount of physiologic fluid in the pelvis -Leukocytosis due to infection as mentioned above -Nicotine abuse: Counseling was provided -Depression -GI prophylaxis with Pepcid DVT prophylaxis, early ambulation
[2019-01-16] MEDS: KETOROLAC 30 MG/ML 1 ML VIAL IVP PRN (20:39)
[2019-01-16] MEDS: MORPHINE SULFATE 2 MG/ML SYRINGE IVP PRN (20:40)
[2019-01-16] MEDS: FAMOTIDINE 20 MG TAB PO SCH (20:40)
[2019-01-17] MEDS: MORPHINE SULFATE 2 MG/ML SYRINGE IVP PRN ×2 (00:35→04:24)
[2019-01-17] MEDS: SODIUM CHLORIDE 0.9% 1,000 ML IV SCH (00:45)
[2019-01-17 03:26] LABS: Cholesterol 125 mg/dL (<200); HDL Cholesterol 40 mg/dL (40-60); LDL Cholesterol,Calculated 58 mg/dL (0-99); Triglycerides 133 mg/dL (<150)
[2019-01-17] MEDS: KETOROLAC 30 MG/ML 1 ML VIAL IVP PRN (04:27)
[2019-01-17 07:48] VITALS: BP 96/54; PULSE 65; RESP 18; TEMP 98.2
[2019-01-17] MEDS: FAMOTIDINE 20 MG TAB PO SCH (08:13)
[2019-01-17 09:28] LABS: African American GFR (CKD) >90 (>60 ml/min/1.73 sqM); Anion Gap 5 mmol/L; Blood Urea Nitrogen 8 mg/dL (7-17); Calcium 8.4 mg/dL (8.4-10.2); Carbon Dioxide 24 mmol/L (22-30); Chloride 109 mmol/L (98-107); Glucose 97 mg/dL (74-99); Non-African American GFR(CKD) >90 (>60 ml/min/1.73 sqM); Potassium 4.2 mmol/L (3.5-5.1); Sodium 138 mmol/L (137-145)
[2019-01-17 10:16] LABS: Basophils % (A) 1 %; Eosinophils # (A) 0.5 k/uL (0-0.7); Eosinophils % (A) 11 %; HCT 33.6 % (34.0-46.0); HGB 10.3 gm/dL (11.4-16.0); Hypochromasia Slight; Lymphocytes # (A) 0.8 k/uL (1.0-4.8); Lymphocytes % (A) 16 %; MCH 19.9 pg (25.0-35.0); MCHC 30.5 g/dL (31.0-37.0); Mean Platelet Volume 7.7; Microcytosis Marked; Monocytes # (A) 0.2 k/uL (0-1.0); Monocytes % (A) 5 %; Neutrophils # (A) 3.4 k/uL (1.3-7.7); Neutrophils % (A) 67 %; Platelet Count 169 k/uL (150-450); RBC 5.17 m/uL (3.80-5.40); RDW 14.5 % (11.5-15.5); WBC 5.1 k/uL (3.8-10.6)
--- NOTE | 2019-01-17 12:02 | P.DS ---
Providers Date of admission: 01/16/19 16:33 Expected date of discharge: 01/17/19 Attending physician: Franky Panda Primary care physician: Stated None Hospital Course: Final diagnosis -Urinary tract infection with possible pyelonephritis -Leukocytosis due to infection as mentioned above -Nicotine abuse: Counseling was provided -Depression -GI prophylaxis -DVT prophylaxis Discharge disposition Patient is being discharged in a stable condition with guarded prognosis to home and will follow-up with her primary care provider in the outpatient setting. Patient currently does not have insurance and has no primary care provider and resources were provided to her upon discharge. Patient will continue on oral Cipro 500 mg twice daily for the next 7 days. Total time taken is 35 minutes. History of present illness This is a 38-year-old female who came in and was recently admitted for right flank pain along with increased urinary frequency with some mild pain with urination and was being closely monitored. Currently patient states that she feels much better and the back pain on the right side has gotten much better. Patient states that she is urinating with no difficulties and denies any pain or burning with urination. Patient currently does not have any insurance and does not have a primary care provider resources were provided for her to follow-up with Dr. Abbey Giordano in the outpatient setting. Patient will continue a course of oral antibiotics in the form of Cipro 500 mg twice daily for the next 7 days. Discussed with the patient at length about increasing her oral intake of water and avoiding high sugar drinks and caffeinated beverages. Also discussed with the patient about continuing to monitor for fevers and to ensure that she is getting plenty of rest. Smoking cessation was discussed as well. Patient demetrio balized understanding of this treatment plan. Patient denies any chest pain, shortness of breath, or palpitations. Patient has been afebrile. Patient denies any nausea or vomiting and is tolerating diet. Discussed with the patient about continuing to take Tylenol every 4-6 hours as needed for the pain or fever develops. On exam vital signs are stable. Temp is 98.2F, pulse is 65, respirations are 18, blood pressure is 96/54, oxygen saturation is 99% on room air. Cardio S1, S2 are present. Respiratory system shows clear to auscultation. Abdomen is soft, thin, non-tender. No CVA tenderness noted on exam. Nervous system shows no focal deficits. Please refer to medication reconciliation sheet for a list of medications. Patient Condition at Discharge: Stable Plan - Discharge Summary Discharge Rx Participant: No New Discharge Prescriptions: New Ciprofloxacin HCl [Cipro] 500 mg PO BID 7 Days #14 tab Discharge Medication List Ciprofloxacin HCl [Cipro] 500 mg PO BID 7 Days #14 tab 01/17/19 [Rx] Follow up Appointment(s)/Referral(s): Antoni Giordano MD [REFERRING] - 1 Week Activity/Diet/Wound Care/Special Instructions: activity limited until follow up follow up with primary care provider upon discharge continue current diet encourage water intake and rest take antibiotics with food and continue taking until finished Discharge Disposition: HOME SELF-CARE
== END 2019-01-17 12:40 | disposition home or self-care (01) ==
LOC: EC 13:22 → 1SOBS 16:33
PROVIDERS: ADMIT Hospitalist; ATTEND Hospitalist
DX: N39.0 Urinary tract infection, site not specified (principal); R07.9 Chest pain, unspecified; Z87.442 Personal history of urinary calculi; F17.200 Nicotine dependence, unspecified, uncomplicated; G43.909 Migraine, unspecified, not intractable, without status migrainosus; D72.829 Elevated white blood cell count, unspecified; Z86.19 Personal history of other infectious and parasitic diseases; F41.9 Anxiety disorder, unspecified; F32.9 Major depressive disorder, single episode, unspecified; Z87.440 Personal history of urinary (tract) infections; Z98.51 Tubal ligation status
CPT/HCPCS: 96366; 96375 ×2; 96376 ×2; 96361; 96365; 99285; 36415; 93005; 80061; 80053; 80048; 84484 ×2; 85025 ×2; 81001; 81025; 87040; 71046; 74176; G0378 ×2; J0696 ×2; J1885 ×2; J2270 ×2

== ENCOUNTER 2019-02-09 01:47 | Emergency (ER) | payer OTHER ==
[2019-02-09] MEDS ORDERED: LORazepam 1 MG TAB PO STA (02:14)
[2019-02-09] MEDS ORDERED: IPRATROPIUM-ALBUTEROL 3 ML NEB INHALATION STA (02:14)
[2019-02-09] MEDS ORDERED: guaiFENesin-Coden 100-10MG/5ML 10 ML CUP PO STA (02:14)
[2019-02-09] MEDS ORDERED: predniSONE 50 MG TAB PO STA (02:14)
--- NOTE | 2019-02-09 02:17 | ED ---
General Adult HPI - General Chief complaint: Shortness of Breath Stated complaint: SOB Time Seen by Provider: 02/09/19 02:03 Source: patient, family Mode of arrival: ambulatory Limitations: no limitations - History of Present Illness Initial comments: 38 year-old female patient presents to the emergency department today for evaluation of cough, congestion, shortness of breath. Patient states she's been sick since Tuesday with symptoms. Patient states today she woke up with a coughing episode causing pain in her chest. She denies any sputum production or hemoptysis. States she's been having intermittent fevers and chills. She also reports nasal congestion and sore throat. Denies any ear pain. Denies any rash. She does admit to smoking cigarettes. She denies any nausea or vomiting. Denies dizziness or weakness. Patient denies any recent rash, abdominal pain, diarrhea, constipation, back pain, numbness, tingling, hematuria, dysuria, u rinary urgency, urinary frequency, headache, visual changes, or any other complaints. - Related Data Previous Rx's Medication Instructions Recorded Ciprofloxacin HCl [Cipro] 500 mg PO BID 7 Days #14 tab 01/17/19 Albuterol Sulfate [Proair Hfa] 1 - 2 puff INHALATION Q6HR PRN #1 02/09/19 inhaler guaiFENesin-Coden 100-10MG/5ML 5 - 10 ml PO Q6H PRN 3 Days #120 ml 02/09/19 [Robitussin AC] predniSONE 50 mg PO DAILY #5 tablet 02/09/19 Allergies Allergy/AdvReac Type Severity Reaction Status Date / Time No Known Allergies Allergy Verified 02/09/19 01:56 Review of Systems ROS Statement: Those systems with pertinent positive or pertinent negative responses have been documented in the HPI. ROS Other: All systems not noted in ROS Statement are negative. Past Medical History Past Medical History: No Reported History Additional Past Medical History / Comment(s): kidney infection, ovarian cyst, migraine History of Any Multi-Drug Resistant Organisms: ESBL Date of last positivie culture/infection: 07/28/16 MDRO Source:: ESBL URINE Past Surgical History: Orthopedic Surgery, Tubal Ligation Additional Past Surgical History / Comment(s): cervical, ovarian cyst Past Anesthesia/Blood Transfusion Reactions: No Reported Reaction Past Psychological History: Anxiety, Depression Smoking Status: Current every day smoker Past Alcohol Use History: Occasional Past Drug Use History: None Reported, Cocaine, Marijuana, Methamphetamine General Exam Limitations: no limitations General appearance: alert, in no apparent distress, other (This is a well- developed, well-nourished adult female patient in no acute distress. Vital signs upon presentation are temperature 97.8F, pulse 93, respirations 20, blood pressure 145/85, pulse ox 100% on room air.) Eye exam: Present: normal appearance, PERRL, EOMI. Absent: scleral icterus, conjunctival injection, periorbital swelling ENT exam: Present: normal exam, normal oropharynx, mucous membranes moist, TM's normal bilaterally Respiratory exam: Present: wheezes (Faint expiratory wheezing noted in the posterior lung hughes). Absent: respiratory distress, rales, rhonchi, stridor Cardiovascular Exam: Present: regular rate, normal rhythm, normal heart sounds. Absent: systolic murmur, diastolic murmur, rubs, gallop, clicks GI/Abdominal exam: Present: soft, normal bowel sounds. Absent: distended, tenderness, guarding, rebound, rigid Neurological exam: Present: alert, oriented X3, CN II-XII intact Psychiatric exam: Present: normal affect, normal mood Skin exam: Present: warm, dry, intact, normal color. Absent: rash Course Vital Signs 02/09/19 02/09/19 02/09/19 01:53 02:38 02:51 Temperature 97.8 F 98.6 F Pulse Rate 93 100 100 Respiratory 20 Rate Blood Pressure 145/85 O2 Sat by Pulse 100 Oximetry 02/09/19 02:55 Temperature Pulse Rate 100 Respiratory Rate Blood Pressure O2 Sat by Pulse Oximetry Medical Decision Making - Medical Decision Making 38 old female patient presents to the emergency department today for evaluation of cough, chest congestion, and shortness of breath. Physical examination reveals faint expiratory wheezing in the posterior lung hughes. Oxygen saturation is satisfactory. She is afebrile. Chest x-ray shows no acute cardiopulmonary process. Influenza testing is negative. She is given oral prednisone, Robitussin-AC, and a breathing treatment. Reevaluation shows report improvement of symptoms. Symptoms are consistent with acute bronchitis. She will be discharged with steroid burst dose, Robitussin, and Pro Air inhaler. She is instructed to follow-up with her primary care physician for recheck in 1- 2 days. Return parameters discussed in detail. She verbalizes understanding and agrees with this plan. - Lab Data Lab Results 02/09/19 Range/Units 02:35 Influenza Type A RNA Not Detected (Not Detectd) Influenza Type B (PCR) Not Detected (Not Detectd) - Radiology Data Radiology results: report reviewed, image reviewed Two-view x-ray of the chest is obtained. Report was reviewed in its entirety. Impression by Dr. Jeffers shows normal chest. No change. Disposition Clinical Impression: Acute bronchitis Disposition: HOME SELF-CARE Condition: Good Instructions (If sedation given, give patient instructions): Acute Bronchitis (ED) Additional Instructions: Take medications as directed. Follow-up with your primary care physician for recheck in 1-2 days. Return to the emergency department immediately for any new, worsening, or concerning symptoms. Prescriptions: predniSONE 50 mg PO DAILY #5 tablet Albuterol Sulfate [Proair Hfa] 1 - 2 puff INHALATION Q6HR PRN #1 inhaler PRN Reason: Shortness Of Breath guaiFENesin-Coden 100-10MG/5ML [Robitussin AC] 5 - 10 ml PO Q6H PRN 3 Days #120 ml PRN Reason: Cough Is patient prescribed a controlled substance at d/c from ED?: No Referrals: None,Stated [Primary Care Provider] - 1-2 days Time of Disposition: 03:32
--- NOTE | 2019-02-09 03:04 | XR ---
EXAMINATION TYPE: XR chest 2V DATE OF EXAM: 02/09/2019 COMPARISON: 01/16/2019 HISTORY: Chest pain. Cough TECHNIQUE: FINDINGS: Heart and mediastinum are normal. Lungs are clear. Diaphragm is normal. Bony thorax appears normal. IMPRESSION: Normal chest. No change.
[2019-02-09 03:53] VITALS: BP 103/70; PULSE 80; RESP 16; TEMP 97.9
== END 2019-02-09 03:50 | disposition home or self-care (01) ==
LOC: EC 01:47
DX: J20.9 Acute bronchitis, unspecified (principal); J02.9 Acute pharyngitis, unspecified; F17.210 Nicotine dependence, cigarettes, uncomplicated
CPT/HCPCS: 94640; 87502; 71046; 99285; J7512

== ENCOUNTER 2019-02-26 13:54 | Emergency (ER) | payer OTHER ==
[2019-02-26] MEDS ORDERED: SODIUM CHLORIDE 0.9% 1,000 ML IV STA (15:41)
[2019-02-26 16:11] LABS: Basophils % (A) 0 %; Eosinophils # (A) 0.5 k/uL (0-0.7); Eosinophils % (A) 7 %; HCT 36.6 % (34.0-46.0); HGB 11.3 gm/dL (11.4-16.0); Hypochromasia Slight; Lymphocytes # (A) 1.8 k/uL (1.0-4.8); Lymphocytes % (A) 25 %; MCH 19.9 pg (25.0-35.0); MCV 64.3 fL (80.0-100.0); Mean Platelet Volume 7.9; Microcytosis Marked; Monocytes # (A) 0.2 k/uL (0-1.0); Monocytes % (A) 3 %; Neutrophils # (A) 4.4 k/uL (1.3-7.7); Neutrophils % (A) 62 %; Platelet Count 219 k/uL (150-450); RBC 5.69 m/uL (3.80-5.40); RDW 14.3 % (11.5-15.5); WBC 7.1 k/uL (3.8-10.6)
[2019-02-26 16:22] LABS: Appearance,Urine Clear (Clear); Bilirubin,Urine Negative (Negative); Blood,Urine Negative (Negative); Color,Urine Yellow; Glucose,Urine (UA) Negative (Negative); Ketones,Urine Negative (Negative); Leukocyte Esterase,Urine Negative (Negative); Nitrite,Urine Negative (Negative); PH, Urine 5.5 (5.0-8.0); Protein,Urine Negative (Negative); Specific Gravity,Urine 1.016 (1.001-1.035); Urobilinogen,Urine <2.0 mg/dL (<2.0)
[2019-02-26 16:37] LABS: ALT 15 U/L (4-34); AST 24 U/L (14-36); African American GFR (CKD) >90 (>60 ml/min/1.73 sqM); Albumin 4.5 g/dL (3.5-5.0); Alkaline Phosphatase 48 U/L (38-126); Amylase 95 U/L (30-110); Anion Gap 6 mmol/L; Blood Urea Nitrogen 7 mg/dL (7-17); Calcium 9.5 mg/dL (8.4-10.2); Carbon Dioxide 26 mmol/L (22-30); Chloride 108 mmol/L (98-107); Glucose 92 mg/dL (74-99); Non-African American GFR(CKD) >90 (>60 ml/min/1.73 sqM); Potassium 4.4 mmol/L (3.5-5.1); Sodium 140 mmol/L (137-145); Total Bilirubin 1.1 mg/dL (0.2-1.3); Total Protein 7.2 g/dL (6.3-8.2)
[2019-02-26] MEDS ORDERED: KETOROLAC 30 MG/ML 1 ML VIAL IVP STA (16:38)
--- NOTE | 2019-02-26 16:59 | ED ---
General Adult HPI - General Chief complaint: Back Pain/Injury Stated complaint: Back pain Time Seen by Provider: 02/26/19 14:54 Source: patient, RN notes reviewed Mode of arrival: ambulatory Limitations: no limitations - History of Present Illness Initial comments: 39-year-old female with a past medical history of pyelonephritis, ovarian cyst, migraines presents to the emergency dept for chief complaint of mid back pain. States has been ongoing for the past 2 days. She denies injury. She denies fevers or chills. She denies significant lower back pain. Denies any bladder or bowel changes. Denies any weakness of the lower extremities. Denies any difficulty ambulating. Denies fevers or chills Patient has no other complaints at this time including shortness of breath, chest pain, abdominal pain, nausea or vomiting, headache, or visual changes. - Related Data Previous Rx's Medication Instructions Recorded Ciprofloxacin HCl [Cipro] 500 mg PO BID 7 Days #14 tab 01/17/19 Albuterol Sulfate [Proair Hfa] 1 - 2 puff INHALATION Q6HR PRN #1 02/09/19 inhaler guaiFENesin-Coden 100-10MG/5ML 5 - 10 ml PO Q6H PRN 3 Days #120 ml 02/09/19 [Robitussin AC] predniSONE 50 mg PO DAILY #5 tablet 02/09/19 Lidocaine 5% Patch [Lidoderm 5% 1 patch TOPICAL DAILY PRN 5 Days 02/26/19 Patch] #5 patch Allergies Allergy/AdvReac Type Severity Reaction Status Date / Time No Known Allergies Allergy Verified 02/26/19 14:26 Review of Systems ROS Statement: Those systems with pertinent positive or pertinent negative responses have been documented in the HPI. ROS Other: All systems not noted in ROS Statement are negative. Past Medical History Past Medical History: No Reported History Additional Past Medical History / Comment(s): kidney infection, ovarian cyst, migraine History of Any Multi-Drug Resistant Organisms: ESBL Date of last positivie culture/infection: 07/28/16 MDRO Source:: ESBL URINE Past Surgical History: Orthopedic Surgery, Tubal Ligation Additional Past Surgical History / Comment(s): cervical, ovarian cyst Past Anesthesia/Blood Transfusion Reactions: No Reported Reaction Past Psychological History: Anxiety, Depression Smoking Status: Current every day smoker Past Alcohol Use History: Occasional Past Drug Use History: Cocaine, Marijuana, Methamphetamine General Exam Limitations: no limitations General appearance: alert, in no apparent distress Head exam: Present: atraumatic, normocephalic, normal inspection Eye exam: Present: normal appearance, PERRL, EOMI. Absent: scleral icterus, conjunctival injection, periorbital swelling ENT exam: Present: normal exam, mucous membranes moist Neck exam: Present: normal inspection, full ROM. Absent: tenderness, meningismus, lymphadenopathy Respiratory exam: Present: normal lung sounds bilaterally. Absent: respiratory distress, wheezes, rales, rhonchi, stridor Cardiovascular Exam: Present: regular rate, normal rhythm, normal heart sounds. Absent: systolic murmur, diastolic murmur, rubs, gallop, clicks GI/Abdominal exam: Present: soft, normal bowel sounds. Absent: distended, tenderness, guarding, rebound, rigid Back exam: Absent: CVA tenderness (R), CVA tenderness (L) Course Vital Signs 02/26/19 14:23 Temperature 98.1 F Pulse Rate 89 Respiratory 20 Rate Blood Pressure 102/60 O2 Sat by Pulse 100 Oximetry Medical Decision Making - Medical Decision Making 39-year-old female presents for mid back pain that worsens with movement. States that twisting makes the pain worse as well as ending forward and lying ba ck on her back. Patient does not recall injury. She has no CVA tenderness. She is one small pinpoint area of tenderness inferior to the left lateral shoulder blade. Vitals are stable. Patient is afebrile. No history of IV drug abuse. CBC and CMP are unremarkable. Urinalysis is negative. Patient reevaluated Toradol so much better. I do suspect that this pain is muskulo skeletal in nature given her worsening symptoms with movement and tenderness to palpation. She will follow up with primary care return if she has any worsening symptoms. - Lab Data Result diagrams: 02/26/19 15:56 02/26/19 15:56 Lab Results 02/26/19 02/26/19 02/26/19 Range/Units 15:56 15:56 15:56 WBC 7.1 (3.8-10.6) k/uL RBC 5.69 H (3.80-5.40) m/uL Hgb 11.3 L (11.4-16.0) gm/dL Hct 36.6 (34.0-46.0) % MCV 64.3 L (80.0-100.0) fL MCH 19.9 L (25.0-35.0) pg MCHC 31.0 (31.0-37.0) g/dL RDW 14.3 (11.5-15.5) % Plt Count 219 (150-450) k/uL Neutrophils % 62 % Lymphocytes % 25 % Monocytes % 3 % Eosinophils % 7 % Basophils % 0 % Neutrophils # 4.4 (1.3-7.7) k/uL Lymphocytes # 1.8 (1.0-4.8) k/uL Monocytes # 0.2 (0-1.0) k/uL Eosinophils # 0.5 (0-0.7) k/uL Basophils # 0.0 (0-0.2) k/uL Hypochromasia Slight Microcytosis Marked Sodium 140 (137-145) mmol/L Potassium 4.4 (3.5-5.1) mmol/L Chloride 108 H (98-107) mmol/L Carbon Dioxide 26 (22-30) mmol/L Anion Gap 6 mmol/L BUN 7 (7-17) mg/dL Creatinine 0.61 (0.52-1.04) mg/dL Est GFR (CKD-EPI)AfAm >90 (>60 ml/min/1.73 sqM) Est GFR (CKD-EPI)NonAf >90 (>60 ml/min/1.73 sqM) Glucose 92 (74-99) mg/dL Plasma Lactic Acid Fernando (0.7-2.0) mmol/L Calcium 9.5 (8.4-10.2) mg/dL Total Bilirubin 1.1 (0.2-1.3) mg/dL AST 24 (14-36) U/L ALT 15 (4-34) U/L Alkaline Phosphatase 48 (38-126) U/L Total Protein 7.2 (6.3-8.2) g/dL Albumin 4.5 (3.5-5.0) g/dL Amylase 95 (30-110) U/L Lipase 224 (23-300) U/L Urine Color Urine Appearance (Clear) Urine pH (5.0-8.0) Ur Specific [place] (1.001-1.035) Urine Protein (Negative) Urine Glucose (UA) (Negative) Urine Ketones (Negative) Urine Blood (Negative) Urine Nitrite (Negative) Urine Bilirubin (Negative) Urine Urobilinogen (<2.0) mg/dL Ur Leukocyte Esterase (Negative) Urine HCG, Qual Not Detected (Not Detectd) 02/26/19 02/26/19 Range/Units 15:56 15:56 WBC (3.8-10.6) k/uL RBC (3.80-5.40) m/uL Hgb (11.4-16.0) gm/dL Hct (34.0-46.0) % MCV (80.0-100.0) fL MCH (25.0-35.0) pg MCHC (31.0-37.0) g/dL RDW (11.5-15.5) % Plt Count (150-450) k/uL Neutrophils % % Lymphocytes % % Monocytes % % Eosinophils % % Basophils % % Neutrophils # (1.3-7.7) k/uL Lymphocytes # (1.0-4.8) k/uL Monocytes # (0-1.0) k/uL Eosinophils # (0-0.7) k/uL Basophils # (0-0.2) k/uL Hypochromasia Microcytosis Sodium (137-145) mmol/L Potassium (3.5-5.1) mmol/L Chloride (98-107) mmol/L Carbon Dioxide (22-30) mmol/L Anion Gap mmol/L BUN (7-17) mg/dL Creatinine (0.52-1.04) mg/dL Est GFR (CKD-EPI)AfAm (>60 ml/min/1.73 sqM) Est GFR (CKD-EPI)NonAf (>60 ml/min/1.73 sqM) Glucose (74-99) mg/dL Plasma Lactic Acid Fernando 0.7 (0.7-2.0) mmol/L Calcium (8.4-10.2) mg/dL Total Bilirubin (0.2-1.3) mg/dL AST (14-36) U/L ALT (4-34) U/L Alkaline Phosphatase (38-126) U/L Total Protein (6.3-8.2) g/dL Albumin (3.5-5.0) g/dL Amylase (30-110) U/L Lipase (23-300) U/L Urine Color Yellow Urine Appearance Clear (Clear) Urine pH 5.5 (5.0-8.0) Ur Specific Pierce 1.016 (1.001-1.035) Urine Protein Negative (Negative) Urine Glucose (UA) Negative (Negative) Urine Ketones Negative (Negative) Urine Blood Negative (Negative) Urine Nitrite Negative (Negative) Urine Bilirubin Negative (Negative) Urine Urobilinogen <2.0 (<2.0) mg/dL Ur Leukocyte Esterase Negative (Negative) Urine HCG, Qual (Not Detectd) Disposition Clinical Impression: Mechanical back pain Disposition: HOME SELF-CARE Condition: Good Instructions (If sedation given, give patient instructions): Acute Low Back Pain (ED) Additional Instructions: Please take Motrin and Tylenol for pain. Use lidocaine patches as needed. Follow-up with primary care in 1-2 days. Return if you have any worsening symptoms. Prescriptions: Lidocaine 5% Patch [Lidoderm 5% Patch] 1 patch TOPICAL DAILY PRN 5 Days #5 patch PRN Reason: Pain Is patient prescribed a controlled substance at d/c from ED?: No Referrals: Antoni Giordano MD [REFERRING] - 1-2 days Time of Disposition: 17:23
[2019-02-26 17:40] VITALS: BP 111/80; PULSE 60; RESP 16; TEMP 97.5
== END 2019-02-26 17:48 | disposition home or self-care (01) ==
LOC: EC 13:54
DX: M54.9 Dorsalgia, unspecified (principal); F17.200 Nicotine dependence, unspecified, uncomplicated
CPT/HCPCS: 36415; 80053; 82150; 83605; 83690; 85025; 81003; 81025; 99283; 96374; 96361; J1885

== ENCOUNTER 2019-03-19 21:55 | Emergency (ER) | payer OTHER ==
[2019-03-19 22:02] VITALS: RESP 18; TEMP 98
[2019-03-19] MEDS ORDERED: MORPHINE SULFATE 2 MG/ML SYRINGE IVP STA (23:24)
[2019-03-19] MEDS ORDERED: SODIUM CHLORIDE 0.9% 1,000 ML IV STA (23:24)
[2019-03-20 00:25] LABS: Appearance,Urine Clear (Clear); Basophils % (A) 0 %; Bilirubin,Urine Negative (Negative); Blood,Urine Negative (Negative); Color,Urine Yellow; Eosinophils # (A) 0.4 k/uL (0-0.7); Eosinophils % (A) 6 %; Glucose,Urine (UA) Negative (Negative); HCT 34.7 % (34.0-46.0); HGB 10.6 gm/dL (11.4-16.0); Hypochromasia Slight; Ketones,Urine Negative (Negative); Leukocyte Esterase,Urine Trace (Negative); Lymphocytes # (A) 2.3 k/uL (1.0-4.8); Lymphocytes % (A) 33 %; MCH 19.4 pg (25.0-35.0); MCHC 30.4 g/dL (31.0-37.0); MCV 63.7 fL (80.0-100.0); Mean Platelet Volume 8.6; Microcytosis Marked; Monocytes # (A) 0.4 k/uL (0-1.0); Monocytes % (A) 6 %; Mucus,Urine Rare /hpf; Neutrophils # (A) 3.4 k/uL (1.3-7.7); Neutrophils % (A) 50 %; Nitrite,Urine Negative (Negative); PH, Urine 5.5 (5.0-8.0); Platelet Count 188 k/uL (150-450); Protein,Urine Negative (Negative); RBC 5.45 m/uL (3.80-5.40); RBC,Urine 1 /hpf (0-5); RDW 14.2 % (11.5-15.5); Specific Gravity,Urine 1.011 (1.001-1.035); Squamous Epithelial Cell,Urine 4 /hpf (0-4); Urobilinogen,Urine <2.0 mg/dL (<2.0); WBC 6.8 k/uL (3.8-10.6); WBC,Urine 3 /hpf (0-5)
[2019-03-20 00:37] LABS: ALT 10 U/L (4-34); AST 20 U/L (14-36); African American GFR (CKD) >90 (>60 ml/min/1.73 sqM); Albumin 4.1 g/dL (3.5-5.0); Alkaline Phosphatase 40 U/L (38-126); Amylase 138 U/L (30-110); Anion Gap 7 mmol/L; Blood Urea Nitrogen 9 mg/dL (7-17); Calcium 9.5 mg/dL (8.4-10.2); Carbon Dioxide 24 mmol/L (22-30); Chloride 106 mmol/L (98-107); Glucose 102 mg/dL (74-99); Non-African American GFR(CKD) >90 (>60 ml/min/1.73 sqM); Potassium 3.9 mmol/L (3.5-5.1); Sodium 137 mmol/L (137-145); Total Bilirubin 0.7 mg/dL (0.2-1.3); Total Protein 6.7 g/dL (6.3-8.2)
--- NOTE | 2019-03-20 00:54 | US ---
EXAMINATION TYPE: US kidneys/renal and bladder DATE OF EXAM: 03/20/2019 COMPARISON: CT, US CLINICAL HISTORY: right flank pain. Right flank pain x 2 weeks. Pain worsened x 2 days. Hx kidney sto heidi. EXAM MEASUREMENTS: Right Kidney: 11.1 x 4.8 x 3.9 cm Left Kidney: 9.7 x 4.7 x 4.2 cm Right Kidney: No hydronephrosis or masses seen Left Kidney: No hydronephrosis or masses seen Bladder: Not fully distended. Unable to fully evaluate. Bilateral Jets seen: No *Incidental finding: spleen measures enlarged at 14.9 cm. IMPRESSION: Borderline splenomegaly. No evidence of renal mass or obstruction.
--- NOTE | 2019-03-20 01:20 | ED ---
Back Pain HPI - General Chief Complaint: Back Pain/Injury Stated Complaint: Back pain Time Seen by Provider: 03/19/19 23:24 Source: patient Limitations: no limitations - History of Present Illness Initial Comments: 39-year-old female presenting today for chief complaint of right flank pain on and off >1 month. Patient states she has had on-and-off right flank pain for over one month. She states it goes away and then comes back. Patient states she has been admitted for pyelonephritis and has history of kidney stones. Patient was concerned that this could possibly be developing again. Patient states she also feels like she has had difficulty urinary denies dysuria denies hematuria. Patient denies any fever or flulike symptoms as a chest pain shortness of breath or abdominal pain she states the pain does wrap around towards her flank from the mid back. Patient denies any left-sided tenderness. Patient has a nausea vomiting diarrhea. Upon arrival patient appears well, no signs of acute distress. - Related Data Previous Rx's Medication Instructions Recorded Ciprofloxacin HCl [Cipro] 500 mg PO BID 7 Days #14 tab 01/17/19 Albuterol Sulfate [Proair Hfa] 1 - 2 puff INHALATION Q6HR PRN #1 02/09/19 inhaler guaiFENesin-Coden 100-10MG/5ML 5 - 10 ml PO Q6H PRN 3 Days #120 ml 02/09/19 [Robitussin AC] predniSONE 50 mg PO DAILY #5 tablet 02/09/19 Lidocaine 5% Patch [Lidoderm 5% 1 patch TOPICAL DAILY PRN 5 Days 02/26/19 Patch] #5 patch Allergies Allergy/AdvReac Type Severity Reaction Status Date / Time No Known Allergies Allergy Verified 03/19/19 22:01 Review of Systems ROS Statement: Those systems with pertinent positive or pertinent negative responses have been documented in the HPI. ROS Other: All systems not noted in ROS Statement are negative. Past Medical History Past Medical History: No Reported History Additional Past Medical History / Comment(s): kidney infection, ovarian cyst, migraine History of Any Multi-Drug Resistant Organisms: ESBL Date of last positivie culture/infection: 07/28/16 MDRO Source:: ESBL URINE Past Surgical History: Orthopedic Surgery, Tubal Ligation Additional Past Surgical History / Comment(s): cervical, ovarian cyst Past Anesthesia/Blood Transfusion Reactions: No Reported Reaction Past Psychological History: Anxiety, Depression Smoking Status: Current every day smoker Past Alcohol Use History: Occasional Past Drug Use History: Cocaine, Marijuana, Methamphetamine General Exam - General Exam Comments Initial Comments: General: The patient is awake and alert, in no distress Eye: +3 mm pupils are equal, round and reactive to light, extra-ocular movements are intact. No nystagmus. There is normal conjunctiva bilaterally. No signs of icterus. Ears, nose, mouth and throat: There are moist mucous membranes and no oral lesions. Neck: The neck is supple, there is no tenderness or JVD. Cardiovascular: There is a regular rate and rhythm. No murmur, rub or gallop is appreciated. Respiratory: Lungs are clear to auscultation, respirations are non-labored, breath sounds are equal. No wheezes, stridor, rales, or rhonchi. Gastrointestinal: Soft, non-distended, non-tender abdomen without masses or organomegaly noted. There is no rebound or guarding present. Patient tender to palpation in the CVA region-- Musculoskeletal: Normal inspection of the cervicothoracic and lumbar spine. No skin lesions, there is no midline tenderness to palpation of the vertebrae of the cervicothoracic or lumbar spine. There is some noted paraspinal tenderness in the CVA region. Right-sided. Normal ROM, no tenderness of the LE b/l. Strength 5/5 of the LE b/l. Sensation intact of the LE b/l. Ambulate without difficulty. Radial and DP pulses equal bilaterally 2+. Neurological: A&O x 3. CN II-XII intact, There are no obvious motor or sensory deficits. Coordination appears grossly intact. Speech is normal. Skin: Skin is warm and dry and no rashes or lesions are noted. Psychiatric: Cooperative, appropriate mood & affect, normal judgment. Limitations: no limitations Course Vital Signs 03/19/19 03/20/19 22:01 01:36 Temperature 98 F Pulse Rate 86 70 Respiratory 18 18 Rate Blood Pressure 118/63 111/72 O2 Sat by Pulse 100 100 Oximetry Medical Decision Making - Medical Decision Making 39-year-old female presenting for right flank pain this has been occurring on and off for the past few months. Patient pain relief with morphine. Ultrasound revealed no obstructing stone no evidence of hydronephrosis or second or signs of infection or inflammatory changes. Patient UA mild leukocyte esterase patient is not currently on antibiotics. Patient's laboratory study stable after discussing results the patient she states she feels she is ready to go home. I discussed the importance of primary care follow-up and provided patient resource the [facility]. I gave patient strict return parameters if pain is worsening or returns she verbalized understanding discussed case attending provider patient was discharged appearing well - Lab Data Result diagrams: 03/20/19 00:04 03/20/19 00:04 Lab Results 03/20/19 03/20/19 03/20/19 Range/Units 00:04 00:04 00:04 WBC 6.8 (3.8-10.6) k/uL RBC 5.45 H (3.80-5.40) m/uL Hgb 10.6 L (11.4-16.0) gm/dL Hct 34.7 (34.0-46.0) % MCV 63.7 L (80.0-100.0) fL MCH 19.4 L (25.0-35.0) pg MCHC 30.4 L (31.0-37.0) g/dL RDW 14.2 (11.5-15.5) % Plt Count 188 (150-450) k/uL Neutrophils % 50 % Lymphocytes % 33 % Monocytes % 6 % Eosinophils % 6 % Basophils % 0 % Neutrophils # 3.4 (1.3-7.7) k/uL Lymphocytes # 2.3 (1.0-4.8) k/uL Monocytes # 0.4 (0-1.0) k/uL Eosinophils # 0.4 (0-0.7) k/uL Basophils # 0.0 (0-0.2) k/uL Hypochromasia Slight Microcytosis Marked Sodium 137 (137-145) mmol/L Potassium 3.9 (3.5-5.1) mmol/L Chloride 106 (98-107) mmol/L Carbon Dioxide 24 (22-30) mmol/L Anion Gap 7 mmol/L BUN 9 (7-17) mg/dL Creatinine 0.69 (0.52-1.04) mg/dL Est GFR (CKD-EPI)AfAm >90 (>60 ml/min/1.73 sqM) Est GFR (CKD-EPI)NonAf >90 (>60 ml/min/1.73 sqM) Glucose 102 H (74-99) mg/dL Calcium 9.5 (8.4-10.2) mg/dL Total Bilirubin 0.7 (0.2-1.3) mg/dL AST 20 (14-36) U/L ALT 10 (4-34) U/L Alkaline Phosphatase 40 (38-126) U/L Total Protein 6.7 (6.3-8.2) g/dL Albumin 4.1 (3.5-5.0) g/dL Amylase 138 H (30-110) U/L Lipase 257 (23-300) U/L Urine Color Urine Appearance (Clear) Urine pH (5.0-8.0) Ur Specific [place] (1.001-1.035) Urine Protein (Negative) Urine Glucose (UA) (Negative) Urine Ketones (Negative) Urine Blood (Negative) Urine Nitrite (Negative) Urine Bilirubin (Negative) Urine Urobilinogen (<2.0) mg/dL Ur Leukocyte Esterase (Negative) Urine RBC (0-5) /hpf Urine WBC (0-5) /hpf Ur Squamous Epith Cells (0-4) /hpf Urine Mucus (None) /hpf Urine HCG, Qual Not Detected (Not Detectd) 03/20/19 Range/Units 00:04 WBC (3.8-10.6) k/uL RBC (3.80-5.40) m/uL Hgb (11.4-16.0) gm/dL Hct (34.0-46.0) % MCV (80.0-100.0) fL MCH (25.0-35.0) pg MCHC (31.0-37.0) g/dL RDW (11.5-15.5) % Plt Count (150-450) k/uL Neutrophils % % Lymphocytes % % Monocytes % % Eosinophils % % Basophils % % Neutrophils # (1.3-7.7) k/uL Lymphocytes # (1.0-4.8) k/uL Monocytes # (0-1.0) k/uL Eosinophils # (0-0.7) k/uL Basophils # (0-0.2) k/uL Hypochromasia Microcytosis Sodium (137-145) mmol/L Potassium (3.5-5.1) mmol/L Chloride (98-107) mmol/L Carbon Dioxide (22-30) mmol/L Anion Gap mmol/L BUN (7-17) mg/dL Creatinine (0.52-1.04) mg/dL Est GFR (CKD-EPI)AfAm (>60 ml/min/1.73 sqM) Est GFR (CKD-EPI)NonAf (>60 ml/min/1.73 sqM) Glucose (74-99) mg/dL Calcium (8.4-10.2) mg/dL Total Bilirubin (0.2-1.3) mg/dL AST (14-36) U/L ALT (4-34) U/L Alkaline Phosphatase (38-126) U/L Total Protein (6.3-8.2) g/dL Albumin (3.5-5.0) g/dL Amylase (30-110) U/L Lipase (23-300) U/L Urine Color Yellow Urine Appearance Clear (Clear) Urine pH 5.5 (5.0-8.0) Ur Specific [place] 1.011 (1.001-1.035) Urine Protein Negative (Negative) Urine Glucose (UA) Negative (Negative) Urine Ketones Negative (Negative) Urine Blood Negative (Negative) Urine Nitrite Negative (Negative) Urine Bilirubin Negative (Negative) Urine Urobilinogen <2.0 (<2.0) mg/dL Ur Leukocyte Esterase Trace H (Negative) Urine RBC 1 (0-5) /hpf Urine WBC 3 (0-5) /hpf Ur Squamous Epith Cells 4 (0-4) /hpf Urine Mucus Rare H (None) /hpf Urine HCG, Qual (Not Detectd) Disposition Clinical Impression: Right flank pain Disposition: HOME SELF-CARE Condition: Good Instructions (If sedation given, give patient instructions): Flank Pain (ED) Additional Instructions: Please use medication as discussed. Please follow-up with family doctor in the next 2 days, recommend repeat labs. Please return to emergency room if the symptoms increase or worsen or for any other concerns. Is patient prescribed a controlled substance at d/c from ED?: No Referrals: None,Stated [Primary Care Provider] - 1-2 days [facility] [[facility] - 1-2 days Time of Disposition: 01:22
[2019-03-20 01:38] VITALS: BP 111/72; PULSE 70
== END 2019-03-20 01:49 | disposition home or self-care (01) ==
LOC: EC 21:55
DX: R10.9 Unspecified abdominal pain (principal); R82.998 Other abnormal findings in urine; M54.9 Dorsalgia, unspecified; R11.2 Nausea with vomiting, unspecified; R19.7 Diarrhea, unspecified; F17.200 Nicotine dependence, unspecified, uncomplicated; Z87.442 Personal history of urinary calculi; Z87.448 Personal history of other diseases of urinary system
CPT/HCPCS: 51798; 36415; 80053; 82150; 83690; 85025; 81001; 81025; 76770; 99284; 96374; J2270

== ENCOUNTER 2019-04-10 17:12 | Emergency (ER) | payer OTHER ==
[2019-04-10 18:13] LABS: Basophils % (A) 0 %; Eosinophils # (A) 0.4 k/uL (0-0.7); Eosinophils % (A) 6 %; HCT 36.4 % (34.0-46.0); HGB 11.1 gm/dL (11.4-16.0); Hypochromasia Moderate; Lymphocytes # (A) 2.5 k/uL (1.0-4.8); Lymphocytes % (A) 35 %; MCH 19.5 pg (25.0-35.0); MCHC 30.5 g/dL (31.0-37.0); MCV 63.8 fL (80.0-100.0); Microcytosis Marked; Monocytes # (A) 0.4 k/uL (0-1.0); Monocytes % (A) 5 %; Neutrophils # (A) 3.8 k/uL (1.3-7.7); Neutrophils % (A) 52 %; Platelet Count 197 k/uL (150-450); RBC 5.71 m/uL (3.80-5.40); RDW 13.9 % (11.5-15.5); WBC 7.3 k/uL (3.8-10.6)
[2019-04-10] MEDS ORDERED: SODIUM CHLORIDE 0.9% 1,000 ML IV STA (18:26)
[2019-04-10] MEDS ORDERED: KETOROLAC 30 MG/ML 1 ML VIAL IVP STA (18:26)
[2019-04-10] MEDS ORDERED: ONDANSETRON 4 MG/2 ML VIAL IVP STA (18:26)
--- NOTE | 2019-04-10 18:37 | ED ---
General Adult HPI - General Chief complaint: Abdominal Pain Stated complaint: Abdominal Pain Time Seen by Provider: 04/10/19 18:16 Source: patient Mode of arrival: ambulatory Limitations: no limitations - History of Present Illness Initial comments: 39-year-old female patient presents to the emergency department today for evaluation of left upper quadrant abdominal pain radiating through to her back. Patient states she's been having this pain on and off for months. States is becoming more frequent especially after eating. Patient states that she has been evaluated for this by both her primary care physician in the emergency department. She was told it could possibly be her gallbladder for which she is undergoing further testing by her primary care doctor. Patient states today after eating lunch her pain intensified and worsened. States she did become nauseous. She denies any vomiting. Denies any fevers or chills. Denies any urinary symptoms or difficulty with bowel movements. Patient denies any recent rash, shortness breath, chest pain, numbness, tingling, dizziness, weakness, hematuria, dysuria, urinary urgency, urinary frequency, headache, visual changes, or any other complaints. - Related Data Previous Rx's Medication Instructions Recorded Ciprofloxacin HCl [Cipro] 500 mg PO BID 7 Days #14 tab 01/17/19 Albuterol Sulfate [Proair Hfa] 1 - 2 puff INHALATION Q6HR PRN #1 02/09/19 inhaler guaiFENesin-Coden 100-10MG/5ML 5 - 10 ml PO Q6H PRN 3 Days #120 ml 02/09/19 [Robitussin AC] predniSONE 50 mg PO DAILY #5 tablet 02/09/19 Lidocaine 5% Patch [Lidoderm 5% 1 patch TOPICAL DAILY PRN 5 Days 02/26/19 Patch] #5 patch Cephalexin [Keflex] 500 mg PO Q6H #28 cap 04/10/19 Allergies Allergy/AdvReac Type Severity Reaction Status Date / Time No Known Allergies Allergy Verified 04/10/19 17:33 Review of Systems ROS Statement: Those systems with pertinent positive or pertinent negative responses have been documented in the HPI. ROS Other: All systems not noted in ROS Statement are negative. Past Medical History Past Medical History: No Reported History Additional Past Medical History / Comment(s): kidney infection, ovarian cyst, migraine History of Any Multi-Drug Resistant Organisms: ESBL Date of last positivie culture/infection: 07/28/16 MDRO Source:: ESBL URINE Past Surgical History: Orthopedic Surgery, Tubal Ligation Additional Past Surgical History / Comment(s): cervical, ovarian cyst Past Anesthesia/Blood Transfusion Reactions: No Reported Reaction Past Psychological History: Anxiety, Depression Smoking Status: Current every day smoker Past Alcohol Use History: Occasional Past Drug Use History: Cocaine, Marijuana, Methamphetamine General Exam Limitations: no limitations General appearance: alert, in no apparent distress, other (This is a well- developed, well-nourished adult female patient in no acute distress. Vital signs upon presentation are temperature 98.0F, pulse 80, respirations 16, blood pressure 111/73, pulse ox 100% on room air.) Eye exam: Present: normal appearance, PERRL, EOMI. Absent: scleral icterus, conjunctival injection, periorbital swelling ENT exam: Present: normal exam, normal oropharynx, mucous membranes moist Respiratory exam: Present: normal lung sounds bilaterally. Absent: respiratory distress, wheezes, rales, rhonchi, stridor Cardiovascular Exam: Present: regular rate, normal rhythm, normal heart sounds. Absent: systolic murmur, diastolic murmur, rubs, gallop, clicks GI/Abdominal exam: Present: soft, tenderness (Left upper quadrant tenderness), normal bowel sounds. Absent: distended, guarding, rebound, rigid Neurological exam: Present: alert, oriented X3, CN II-XII intact Psychiatric exam: Present: normal affect, normal mood Skin exam: Present: warm, dry, intact, normal color. Absent: rash Course Vital Signs 04/10/19 04/10/19 04/10/19 17:31 19:10 20:44 Temperature 98.0 F 98.1 F 98.5 F Pulse Rate 80 77 74 Respiratory 16 18 18 Rate Blood Pressure 111/73 110/67 115/71 O2 Sat by Pulse 100 100 100 Oximetry Medical Decision Making - Medical Decision Making 39-year-old female patient presented to the emergency department today for evaluation of left upper quadrant abdominal pain with radiation through to the back. Physical examination did reveal left upper quadrant tenderness. No g uarding or rebound, abdomen is soft. Labs reviewed and are unremarkable. Urinalysis did show evidence of infection, this was sent for culture. We did give 1 dose of Rocephin and will discharged Keflex. She is currently being evaluated for gallbladder dysfunction by her primary care physician, she is urged to discuss HIDA scan. She did have an ultrasound here on 03/20/2019 which was negative. Since labs today are unremarkable, she is afebrile, she'll be discharged follow-up for recheck in 1-2 days. Return parameters discussed in detail. She verbalizes understanding and agrees this plan. - Lab Data Result diagrams: 04/10/19 17:54 04/10/19 17:54 Lab Results 04/10/19 04/10/19 04/10/19 Range/Units 17:44 17:54 17:54 WBC 7.3 (3.8-10.6) k/uL RBC 5.71 H (3.80-5.40) m/uL Hgb 11.1 L (11.4-16.0) gm/dL Hct 36.4 (34.0-46.0) % MCV 63.8 L (80.0-100.0) fL MCH 19.5 L (25.0-35.0) pg MCHC 30.5 L (31.0-37.0) g/dL RDW 13.9 (11.5-15.5) % Plt Count 197 (150-450) k/uL Neutrophils % 52 % Lymphocytes % 35 % Monocytes % 5 % Eosinophils % 6 % Basophils % 0 % Neutrophils # 3.8 (1.3-7.7) k/uL Lymphocytes # 2.5 (1.0-4.8) k/uL Monocytes # 0.4 (0-1.0) k/uL Eosinophils # 0.4 (0-0.7) k/uL Basophils # 0.0 (0-0.2) k/uL Hypochromasia Moderate Microcytosis Marked Sodium 137 (137-145) mmol/L Potassium 4.2 (3.5-5.1) mmol/L Chloride 107 (98-107) mmol/L Carbon Dioxide 21 L (22-30) mmol/L Anion Gap 9 mmol/L BUN 13 (7-17) mg/dL Creatinine 0.72 (0.52-1.04) mg/dL Est GFR (CKD-EPI)AfAm >90 (>60 ml/min/1.73 sqM) Est GFR (CKD-EPI)NonAf >90 (>60 ml/min/1.73 sqM) Glucose 85 (74-99) mg/dL Calcium 9.2 (8.4-10.2) mg/dL Total Bilirubin 0.8 (0.2-1.3) mg/dL AST 28 (14-36) U/L ALT 17 (4-34) U/L Alkaline Phosphatase 45 (38-126) U/L Total Protein 7.3 (6.3-8.2) g/dL Albumin 4.6 (3.5-5.0) g/dL Amylase 108 (30-110) U/L Lipase 240 (23-300) U/L Urine Color Yellow Urine Appearance Turbid H (Clear) Urine pH 6.0 (5.0-8.0) Ur Specific [place] 1.045 H (1.001-1.035) Urine Protein 1+ H (Negative) Urine Glucose (UA) Negative (Negative) Urine Ketones Trace H (Negative) Urine Blood Negative (Negative) Urine Nitrite Negative (Negative) Urine Bilirubin Negative (Negative) Urine Urobilinogen 2.0 (<2.0) mg/dL Ur Leukocyte Esterase Moderate H (Negative) Urine WBC 7 H (0-5) /hpf Urine WBC Clumps Occasional H (None) /hpf Ur Squamous Epith Cells 4 (0-4) /hpf Amorphous Sediment Rare H (None) /hpf Urine Bacteria Moderate H (None) /hpf Urine Mucus Many H (None) /hpf Disposition Clinical Impression: Abdominal pain Disposition: HOME SELF-CARE Condition: Good Instructions (If sedation given, give patient instructions): Low Fat Diet (ED), Abdominal Pain (ED) Additional Instructions: Increase fluids. Avoid fatty or greasy foods. Follow-up through primary care physician for recheck as soon as possible. Discussed obtaining HIDA scan to further evaluate your gallbladder. Return to the emergency department immediately for any new, worsening, or concerning symptoms. Prescriptions: Cephalexin [Keflex] 500 mg PO Q6H #28 cap Is patient prescribed a controlled substance at d/c from ED?: No Referrals: Amilcar Griffin MD [Primary Care Provider] - 1-2 days Time of Disposition: 20:18
[2019-04-10 18:41] LABS: ALT 17 U/L (4-34); AST 28 U/L (14-36); African American GFR (CKD) >90 (>60 ml/min/1.73 sqM); Albumin 4.6 g/dL (3.5-5.0); Alkaline Phosphatase 45 U/L (38-126); Amylase 108 U/L (30-110); Anion Gap 9 mmol/L; Blood Urea Nitrogen 13 mg/dL (7-17); Calcium 9.2 mg/dL (8.4-10.2); Carbon Dioxide 21 mmol/L (22-30); Chloride 107 mmol/L (98-107); Glucose 85 mg/dL (74-99); Non-African American GFR(CKD) >90 (>60 ml/min/1.73 sqM); Potassium 4.2 mmol/L (3.5-5.1); Sodium 137 mmol/L (137-145); Total Bilirubin 0.8 mg/dL (0.2-1.3); Total Protein 7.3 g/dL (6.3-8.2)
[2019-04-10 19:11] VITALS: RESP 18
[2019-04-10 19:23] LABS: Amorphous Sediment,Urine Rare /hpf; Appearance,Urine Turbid (Clear); Bacteria,Urine Moderate /hpf; Bilirubin,Urine Negative (Negative); Blood,Urine Negative (Negative); Color,Urine Yellow; Glucose,Urine (UA) Negative (Negative); Ketones,Urine Trace (Negative); Leukocyte Esterase,Urine Moderate (Negative); Mucus,Urine Many /hpf; Nitrite,Urine Negative (Negative); Protein,Urine 1+ (Negative); Specific Gravity,Urine 1.045 (1.001-1.035); Squamous Epithelial Cell,Urine 4 /hpf (0-4); WBC,Urine 7 /hpf (0-5)
[2019-04-10] MEDS ORDERED: MAG HYDROX/AL HYDROX/SIMETH 30 ML, HYOSCYAMINE ELIXIR 10 ML, LIDOCAINE VISCOUS 2% 10 ML PO STA ×3 (20:16)
[2019-04-10] MEDS ORDERED: ACET/COD 300 MG/30 MG STARTER PACK 6 TAB BTL PO STA (20:16)
[2019-04-10] MEDS ORDERED: cefTRIAXone IN SWFI 1,000 MG/10 ML SYRINGE IVP STA (20:17)
[2019-04-10 20:48] VITALS: BP 115/71; PULSE 74; TEMP 98.5
== END 2019-04-10 20:44 | disposition home or self-care (01) ==
LOC: EC 17:12
DX: R10.12 Left upper quadrant pain (principal); N39.0 Urinary tract infection, site not specified; K82.8 Other specified diseases of gallbladder; M54.9 Dorsalgia, unspecified; R11.0 Nausea; F17.200 Nicotine dependence, unspecified, uncomplicated
CPT/HCPCS: 36415; 80053; 82150; 83690; 85025; 81001; 87086; 99284; 96374; 96375 ×2; 96361; J2405; J0696; J1885

== ENCOUNTER → 2019-05-01 | Outpatient (CLI) | payer OTHER ==
--- NOTE | 2019-05-01 14:13 | NM ---
EXAMINATION TYPE: NM hepatobiliary w EF DATE OF EXAM: 05/01/2019 COMPARISON: NONE HISTORY: Pain TECHNIQUE: After the intravenous administration of 5.1 mCi Tc 99m Mebrofenin hepatobiliary scintigrap hy is performed. Immediate images post injection. FINDINGS: There is satisfactory initial accumulation of tracer by the liver. The gallbladder is visualized wit hin 14 minutes. The small bowel activity is noted within 38 minutes. At one hour 8 ounces of oral e nsure plus is given to mimic CCK and gallbladder ejection fraction is calculated at 58 %, in the norm al range. Therefore there is no scintigraphic evidence of cystic or common bile duct obstruction to suggest acute cholecystitis or gallbladder dyskinesia. IMPRESSION: Exam is within normal limits.
== END | disposition home or self-care (01) ==
LOC: RADNMMAIN 12:10
PROVIDERS: ATTEND Family Medicine
DX: R10.9 Unspecified abdominal pain (principal)
CPT/HCPCS: 78226; A9537

== ENCOUNTER 2019-07-25 12:04 | Emergency (ER) | payer OTHER ==
[2019-07-25] MEDS ORDERED: ONDANSETRON 4 MG/2 ML VIAL IVP STA (12:42)
[2019-07-25] MEDS ORDERED: SODIUM CHLORIDE 0.9% 1,000 ML IV STA (12:42)
[2019-07-25] MEDS ORDERED: KETOROLAC 30 MG/ML 1 ML VIAL IVP STA (12:42)
--- NOTE | 2019-07-25 12:45 | ED ---
Abdominal Pain HPI - General Chief Complaint: Abdominal Pain Stated Complaint: abd & back pain Time Seen by Provider: 07/25/19 12:27 Source: patient, RN notes reviewed, old records reviewed Mode of arrival: ambulatory Limitations: no limitations - History of Present Illness Initial Comments: Patient is a 39-year-old female presents with lower abdominal pain radiating towards bilateral flanks for the past 3 days. She reports no fevers or chills. She does state that she's had history of ovarian cysts and kidney infections in the past. - Related Data Previous Rx's Medication Instructions Recorded Cephalexin [Keflex] 500 mg PO Q6HR #40 cap 07/25/19 Allergies Allergy/AdvReac Type Severity Reaction Status Date / Time No Known Allergies Allergy Verified 07/25/19 14:45 Review of Systems ROS Statement: Those systems with pertinent positive or pertinent negative responses have been documented in the HPI. ROS Other: All systems not noted in ROS Statement are negative. Past Medical History Past Medical History: No Reported History Additional Past Medical History / Comment(s): kidney infection, ovarian cyst, migraine History of Any Multi-Drug Resistant Organisms: ESBL Date of last positivie culture/infection: 07/28/16 MDRO Source:: ESBL URINE Past Surgical History: Orthopedic Surgery, Tubal Ligation Additional Past Surgical History / Comment(s): cervical, ovarian cyst Past Anesthesia/Blood Transfusion Reactions: No Reported Reaction Past Psychological History: Anxiety, Depression Smoking Status: Current every day smoker Past Alcohol Use History: Occasional Past Drug Use History: Cocaine, Marijuana, Methamphetamine General Exam - General Exam Comments Initial Comments: 39 year old female, no distress. Limitations: no limitations General appearance: alert, in no apparent distress Head exam: Present: atraumatic, normocephalic, normal inspection Eye exam: Present: normal appearance, PERRL, EOMI. Absent: scleral icterus, conjunctival injection, periorbital swelling ENT exam: Present: normal exam, mucous membranes moist Neck exam: Present: normal inspection. Absent: tenderness, meningismus, lymphadenopathy Respiratory exam: Present: normal lung sounds bilaterally. Absent: respiratory distress, wheezes, rales, rhonchi, stridor Cardiovascular Exam: Present: regular rate, normal rhythm, normal heart sounds. Absent: systolic murmur, diastolic murmur, rubs, gallop, clicks Course Vital Signs 07/25/19 07/25/19 07/25/19 12:21 13:46 14:45 Temperature 98.0 F 98.2 F Pulse Rate 104 H 67 75 Respiratory 20 18 18 Rate Blood Pressure 100/66 92/59 94/62 O2 Sat by Pulse 98 99 99 Oximetry 07/25/19 15:50 Temperature 98.6 F Pulse Rate 75 Respiratory 19 Rate Blood Pressure 99/56 O2 Sat by Pulse 98 Oximetry Medical Decision Making - Medical Decision Making 39 year old female with lower abdominal and flank pain. Patient labs were reviewed. UA is postive for WBC and bacteria, culture will be completed. She denies concern for STD or vaginal discharge. Patient CBC and CMP are unremarkable. Patient started on rocephin IVPB for UTI and possible early pyel onephritis, however patient does not have fever at this time. Discussed DC with keflex and close return parameters and follow up with PCP. - Lab Data Result diagrams: 07/25/19 13:25 07/25/19 13:25 Lab Results 07/25/19 07/25/19 07/25/19 Range/Units 13:25 13:25 13:25 WBC 5.9 (3.8-10.6) k/uL RBC 5.31 (3.80-5.40) m/uL Hgb 10.6 L (11.4-16.0) gm/dL Hct 34.8 (34.0-46.0) % MCV 65.6 L (80.0-100.0) fL MCH 19.9 L (25.0-35.0) pg MCHC 30.4 L (31.0-37.0) g/dL RDW 14.7 (11.5-15.5) % Plt Count 186 (150-450) k/uL Neutrophils % 65 % Lymphocytes % 23 % Monocytes % 4 % Eosinophils % 6 % Basophils % 1 % Neutrophils # 3.8 (1.3-7.7) k/uL Lymphocytes # 1.3 (1.0-4.8) k/uL Monocytes # 0.2 (0-1.0) k/uL Eosinophils # 0.4 (0-0.7) k/uL Basophils # 0.0 (0-0.2) k/uL Hypochromasia Moderate Microcytosis Marked PT 10.3 (9.0-12.0) sec INR 1.0 (<1.2) APTT 24.4 (22.0-30.0) sec Sodium (137-145) mmol/L Potassium (3.5-5.1) mmol/L Chloride (98-107) mmol/L Carbon Dioxide (22-30) mmol/L Anion Gap mmol/L BUN (7-17) mg/dL Creatinine (0.52-1.04) mg/dL Est GFR (CKD-EPI)AfAm (>60 ml/min/1.73 sqM) Est GFR (CKD-EPI)NonAf (>60 ml/min/1.73 sqM) Glucose (74-99) mg/dL Calcium (8.4-10.2) mg/dL Total Bilirubin (0.2-1.3) mg/dL AST (14-36) U/L ALT (4-34) U/L Alkaline Phosphatase (38-126) U/L Total Protein (6.3-8.2) g/dL Albumin (3.5-5.0) g/dL Amylase (30-110) U/L Lipase (23-300) U/L Urine Color Yellow Urine Appearance Cloudy H (Clear) Urine pH 7.5 (5.0-8.0) Ur Specific [place] 1.018 (1.001-1.035) Urine Protein Negative (Negative) Urine Glucose (UA) Negative (Negative) Urine Ketones Negative (Negative) Urine Blood Negative (Negative) Urine Nitrite Negative (Negative) Urine Bilirubin Negative (Negative) Urine Urobilinogen <2.0 (<2.0) mg/dL Ur Leukocyte Esterase Large H (Negative) Urine RBC 16 H (0-5) /hpf Urine WBC 43 H (0-5) /hpf Ur Squamous Epith Cells 4 (0-4) /hpf Urine Bacteria Many H (None) /hpf Urine Mucus Moderate H (None) /hpf Urine HCG, Qual (Not Detectd) 07/25/19 07/25/19 Range/Units 13:25 13:25 WBC (3.8-10.6) k/uL RBC (3.80-5.40) m/uL Hgb (11.4-16.0) gm/dL Hct (34.0-46.0) % MCV (80.0-100.0) fL MCH (25.0-35.0) pg MCHC (31.0-37.0) g/dL RDW (11.5-15.5) % Plt Count (150-450) k/uL Neutrophils % % Lymphocytes % % Monocytes % % Eosinophils % % Basophils % % Neutrophils # (1.3-7.7) k/uL Lymphocytes # (1.0-4.8) k/uL Monocytes # (0-1.0) k/uL Eosinophils # (0-0.7) k/uL Basophils # (0-0.2) k/uL Hypochromasia Microcytosis PT (9.0-12.0) sec INR (<1.2) APTT (22.0-30.0) sec Sodium 138 (137-145) mmol/L Potassium 4.5 (3.5-5.1) mmol/L Chloride 107 (98-107) mmol/L Carbon Dioxide 27 (22-30) mmol/L Anion Gap 4 mmol/L BUN 4 L (7-17) mg/dL Creatinine 0.73 (0.52-1.04) mg/dL Est GFR (CKD-EPI)AfAm >90 (>60 ml/min/1.73 sqM) Est GFR (CKD-EPI)NonAf >90 (>60 ml/min/1.73 sqM) Glucose 84 (74-99) mg/dL Calcium 8.6 (8.4-10.2) mg/dL Total Bilirubin 0.5 (0.2-1.3) mg/dL AST 19 (14-36) U/L ALT 12 (4-34) U/L Alkaline Phosphatase 47 (38-126) U/L Total Protein 6.0 L (6.3-8.2) g/dL Albumin 3.5 (3.5-5.0) g/dL Amylase 105 (30-110) U/L Lipase 296 (23-300) U/L Urine Color Urine Appearance (Clear) Urine pH (5.0-8.0) Ur Specific [place] (1.001-1.035) Urine Protein (Negative) Urine Glucose (UA) (Negative) Urine Ketones (Negative) Urine Blood (Negative) Urine Nitrite (Negative) Urine Bilirubin (Negative) Urine Urobilinogen (<2.0) mg/dL Ur Leukocyte Esterase (Negative) Urine RBC (0-5) /hpf Urine WBC (0-5) /hpf Ur Squamous Epith Cells (0-4) /hpf Urine Bacteria (None) /hpf Urine Mucus (None) /hpf Urine HCG, Qual Not Detected (Not Detectd) Disposition Clinical Impression: UTI (urinary tract infection) Disposition: HOME SELF-CARE Condition: Good Instructions (If sedation given, give patient instructions): Urinary Tract Infection in Women (ED) Additional Instructions: Please use medication as discussed. Please follow up with family doctor if symptoms have not improved over the next two days. Please return to the emergency room if your symptoms increase or worsen or for any other concerns. Prescriptions: Cephalexin [Keflex] 500 mg PO Q6HR #40 cap Is patient prescribed a controlled substance at d/c from ED?: No Referrals: Amilcar Griffin MD [Primary Care Provider] - 1-2 days Time of Disposition: 14:52
[2019-07-25] MEDS ORDERED: SODIUM CHLORIDE 0.9% 1,000 ML IV ONE (14:02)
[2019-07-25 14:04] LABS: Basophils % (A) 1 %; Eosinophils # (A) 0.4 k/uL (0-0.7); Eosinophils % (A) 6 %; HCT 34.8 % (34.0-46.0); HGB 10.6 gm/dL (11.4-16.0); Hypochromasia Moderate; Lymphocytes # (A) 1.3 k/uL (1.0-4.8); Lymphocytes % (A) 23 %; MCH 19.9 pg (25.0-35.0); MCHC 30.4 g/dL (31.0-37.0); MCV 65.6 fL (80.0-100.0); Mean Platelet Volume 7.8; Microcytosis Marked; Monocytes # (A) 0.2 k/uL (0-1.0); Monocytes % (A) 4 %; Neutrophils # (A) 3.8 k/uL (1.3-7.7); Neutrophils % (A) 65 %; Platelet Count 186 k/uL (150-450); RBC 5.31 m/uL (3.80-5.40); RDW 14.7 % (11.5-15.5); WBC 5.9 k/uL (3.8-10.6)
[2019-07-25 14:12] LABS: Appearance,Urine Cloudy (Clear); Bacteria,Urine Many /hpf; Bilirubin,Urine Negative (Negative); Blood,Urine Negative (Negative); Color,Urine Yellow; Glucose,Urine (UA) Negative (Negative); Ketones,Urine Negative (Negative); Leukocyte Esterase,Urine Large (Negative); Mucus,Urine Moderate /hpf; Nitrite,Urine Negative (Negative); PH, Urine 7.5 (5.0-8.0); Protein,Urine Negative (Negative); Prothrombin Time 10.3 sec (9.0-12.0); RBC,Urine 16 /hpf (0-5); Specific Gravity,Urine 1.018 (1.001-1.035); Squamous Epithelial Cell,Urine 4 /hpf (0-4); Urobilinogen,Urine <2.0 mg/dL (<2.0); WBC,Urine 43 /hpf (0-5)
[2019-07-25 14:13] LABS: Partial Thromboplastin Time 24.4 sec (22.0-30.0)
[2019-07-25 14:18] LABS: ALT 12 U/L (4-34); AST 19 U/L (14-36); African American GFR (CKD) >90 (>60 ml/min/1.73 sqM); Albumin 3.5 g/dL (3.5-5.0); Alkaline Phosphatase 47 U/L (38-126); Amylase 105 U/L (30-110); Anion Gap 4 mmol/L; Blood Urea Nitrogen 4 mg/dL (7-17); Calcium 8.6 mg/dL (8.4-10.2); Carbon Dioxide 27 mmol/L (22-30); Chloride 107 mmol/L (98-107); Glucose 84 mg/dL (74-99); Non-African American GFR(CKD) >90 (>60 ml/min/1.73 sqM); Potassium 4.5 mmol/L (3.5-5.1); Sodium 138 mmol/L (137-145); Total Bilirubin 0.5 mg/dL (0.2-1.3)
[2019-07-25] MEDS ORDERED: MORPHINE SULFATE 2 MG/ML SYRINGE IVP ONE (14:47)
[2019-07-25 14:56] VITALS: PULSE 75
[2019-07-25 15:57] VITALS: BP 99/56; RESP 19; TEMP 98.6
== END 2019-07-25 15:50 | disposition home or self-care (01) ==
LOC: EC 12:04
DX: N39.0 Urinary tract infection, site not specified (principal); Z98.51 Tubal ligation status; F17.200 Nicotine dependence, unspecified, uncomplicated
CPT/HCPCS: 36415; 80053; 82150; 83690; 85025; 85610; 85730; 81001; 81025; 87086; 99284; 96365; 96375 ×3; 96361; J2405; J0696; J1885; J2270

== ENCOUNTER 2019-08-04 17:41 | Inpatient (IN) | payer OTHER ==
[2019-08-04] MEDS ORDERED: SODIUM CHLORIDE 0.9% 500 ML 500 ML IV STA (18:05)
[2019-08-04] MEDS ORDERED: ONDANSETRON 4 MG/2 ML VIAL IVP STA (18:05)
[2019-08-04] MEDS ORDERED: PANTOPRAZOLE 40 MG/10 ML VIAL IVP STA (18:05)
[2019-08-04] MEDS ORDERED: KETOROLAC 30 MG/ML 1 ML VIAL IVP STA (18:05)
--- NOTE | 2019-08-04 18:26 | ED ---
General Adult HPI - General Chief complaint: Abdominal Pain Stated complaint: Abd pain Time Seen by Provider: 08/04/19 17:47 Source: patient, RN notes reviewed, old records reviewed Mode of arrival: ambulatory Limitations: no limitations - History of Present Illness Initial comments: 39-year-old female presenting for evaluation of abdominal pain. Patient has history of chronic abdominal pain and has been following with her primary care physician regarding these symptoms. She states that she believes this is her gallbladder. She had a HIDA scan done several weeks ago and is waiting for the results. She states her pain is epigastric and right upper quadrant. No fever. No lower abdominal pain. No vaginal discharge or vaginal bleeding. No dysuria or hematuria. Patient states she has been constipated - Related Data Previous Rx's Medication Instructions Recorded Cephalexin [Keflex] 500 mg PO Q6HR #40 cap 07/25/19 Allergies Allergy/AdvReac Type Severity Reaction Status Date / Time No Known Allergies Allergy Verified 08/04/19 17:46 Review of Systems ROS Statement: Those systems with pertinent positive or pertinent negative responses have been documented in the HPI. ROS Other: All systems not noted in ROS Statement are negative. Past Medical History Past Medical History: No Reported History Additional Past Medical History / Comment(s): migraine History of Any Multi-Drug Resistant Organisms: ESBL Date of last positivie culture/infection: 07/28/16 MDRO Source:: ESBL URINE Past Surgical History: Orthopedic Surgery, Tubal Ligation Additional Past Surgical History / Comment(s): cervical, ovarian cyst Past Anesthesia/Blood Transfusion Reactions: No Reported Reaction Past Psychological History: Anxiety, Depression Smoking Status: Current every day smoker Past Alcohol Use History: Occasional Past Drug Use History: Cocaine, Marijuana, Methamphetamine General Exam Limitations: no limitations General appearance: alert, anxious Head exam: Present: atraumatic, normocephalic Eye exam: Present: normal appearance, PERRL ENT exam: Present: normal exam Neck exam: Present: normal inspection. Absent: tenderness, meningismus Respiratory exam: Present: normal lung sounds bilaterally. Absent: respiratory distress, wheezes Cardiovascular Exam: Present: regular rate, normal rhythm GI/Abdominal exam: Present: soft, tenderness (Epigastric and right upper quadrant tenderness). Absent: distended, guarding, rebound Extremities exam: Present: normal inspection, normal capillary refill. Absent: pedal edema Back exam: Present: normal inspection Neurological exam: Present: alert, oriented X3, CN II-XII intact. Absent: motor sensory deficit Psychiatric exam: Present: normal affect, normal mood Skin exam: Present: warm, dry, intact. Absent: cyanosis, diaphoretic Course Vital Signs 08/04/19 17:43 Temperature 98 F Pulse Rate 121 H Respiratory 22 Rate Blood Pressure 121/74 O2 Sat by Pulse 99 Oximetry Medical Decision Making - Medical Decision Making 39-year-old female with recurrent right upper quadrant abdominal pain. X-rays obtained, negative for fracture or intraperitoneal free air. Patient has normal white blood cell count, stable hemoglobin. Ultrasound is obtained which shows an enlarged liver, no signs of acute cholecystitis or common bile duct dilatation. HIDA scan reviewed from previous it admission, this is negative. She has an elevated bilirubin at 2.8 and 4+ ketones likely secondary to vomiting. She has signs of urinary tract infection, culture is obtained and the patient started on Rocephin. She will be admitted for IV hydration, reevaluation, consultation with gastroenterology. Case discussed with Dr. Griffin who will admit. - Lab Data Result diagrams: 08/04/19 18:26 08/04/19 18:18 Lab Results 08/04/19 08/04/19 08/04/19 Range/Units 18:18 18:26 18:26 WBC 9.0 (3.8-10.6) k/uL RBC 6.31 H (3.80-5.40) m/uL Hgb 12.4 (11.4-16.0) gm/dL Hct 39.9 (34.0-46.0) % MCV 63.2 L (80.0-100.0) fL MCH 19.7 L (25.0-35.0) pg MCHC 31.1 (31.0-37.0) g/dL RDW 14.9 (11.5-15.5) % Plt Count 265 (150-450) k/uL Neutrophils % 65 % Lymphocytes % 22 % Monocytes % 7 % Eosinophils % 3 % Basophils % 1 % Neutrophils # 5.8 (1.3-7.7) k/uL Lymphocytes # 2.0 (1.0-4.8) k/uL Monocytes # 0.7 (0-1.0) k/uL Eosinophils # 0.3 (0-0.7) k/uL Basophils # 0.1 (0-0.2) k/uL Microcytosis Marked PT 10.2 (9.0-12.0) sec INR 1.0 (<1.2) APTT 24.1 (22.0-30.0) sec Sodium 137 (137-145) mmol/L Potassium 4.4 (3.5-5.1) mmol/L Chloride 103 (98-107) mmol/L Carbon Dioxide 20 L (22-30) mmol/L Anion Gap 14 mmol/L BUN 13 (7-17) mg/dL Creatinine 0.70 (0.52-1.04) mg/dL Est GFR (CKD-EPI)AfAm >90 (>60 ml/min/1.73 sqM) Est GFR (CKD-EPI)NonAf >90 (>60 ml/min/1.73 sqM) Glucose 89 (74-99) mg/dL Calcium 10.2 (8.4-10.2) mg/dL Total Bilirubin 2.8 H (0.2-1.3) mg/dL AST 27 (14-36) U/L ALT 19 (4-34) U/L Alkaline Phosphatase 71 (38-126) U/L Total Protein 8.2 (6.3-8.2) g/dL Albumin 5.0 (3.5-5.0) g/dL Amylase 79 (30-110) U/L Lipase 138 (23-300) U/L Urine Color Urine Appearance (Clear) Urine pH (5.0-8.0) Ur Specific [place] (1.001-1.035) Urine Protein (Negative) Urine Glucose (UA) (Negative) Urine Ketones (Negative) Urine Blood (Negative) Urine Nitrite (Negative) Urine Bilirubin (Negative) Urine Urobilinogen (<2.0) mg/dL Ur Leukocyte Esterase (Negative) Urine WBC (0-5) /hpf Ur Squamous Epith Cells (0-4) /hpf Urine Bacteria (None) /hpf Urine Mucus (None) /hpf Urine HCG, Qual (Not Detectd) 08/04/19 08/04/19 Range/Units 18:34 18:57 WBC (3.8-10.6) k/uL RBC (3.80-5.40) m/uL Hgb (11.4-16.0) gm/dL Hct (34.0-46.0) % MCV (80.0-100.0) fL MCH (25.0-35.0) pg MCHC (31.0-37.0) g/dL RDW (11.5-15.5) % Plt Count (150-450) k/uL Neutrophils % % Lymphocytes % % Monocytes % % Eosinophils % % Basophils % % Neutrophils # (1.3-7.7) k/uL Lymphocytes # (1.0-4.8) k/uL Monocytes # (0-1.0) k/uL Eosinophils # (0-0.7) k/uL Basophils # (0-0.2) k/uL Microcytosis PT (9.0-12.0) sec INR (<1.2) APTT (22.0-30.0) sec Sodium (137-145) mmol/L Potassium (3.5-5.1) mmol/L Chloride (98-107) mmol/L Carbon Dioxide (22-30) mmol/L Anion Gap mmol/L BUN (7-17) mg/dL Creatinine (0.52-1.04) mg/dL Est GFR (CKD-EPI)AfAm (>60 ml/min/1.73 sqM) Est GFR (CKD-EPI)NonAf (>60 ml/min/1.73 sqM) Glucose (74-99) mg/dL Calcium (8.4-10.2) mg/dL Total Bilirubin (0.2-1.3) mg/dL AST (14-36) U/L ALT (4-34) U/L Alkaline Phosphatase (38-126) U/L Total Protein (6.3-8.2) g/dL Albumin (3.5-5.0) g/dL Amylase (30-110) U/L Lipase (23-300) U/L Urine Color Yellow Urine Appearance Cloudy H (Clear) Urine pH 6.5 (5.0-8.0) Ur Specific [place] 1.030 (1.001-1.035) Urine Protein 1+ H (Negative) Urine Glucose (UA) Negative (Negative) Urine Ketones 4+ H (Negative) Urine Blood Negative (Negative) Urine Nitrite Negative (Negative) Urine Bilirubin 1+ H (Negative) Urine Urobilinogen 4.0 (<2.0) mg/dL Ur Leukocyte Esterase Large H (Negative) Urine WBC 61 H (0-5) /hpf Ur Squamous Epith Cells 8 H (0-4) /hpf Urine Bacteria Rare H (None) /hpf Urine Mucus Many H (None) /hpf Urine HCG, Qual Not Detected (Not Detectd) Disposition Clinical Impression: UTI (urinary tract infection), Abdominal pain, Dehydration Disposition: ADMITTED IP TO THIS [facility] Condition: Stable Is patient prescribed a controlled substance at d/c from ED?: No Referrals: Amilcar Griffin MD [Primary Care Provider] - 1-2 days Decision to Admit Reason: Admit from EC Decision Date: 08/04/19 Decision Time: 19:23
--- NOTE | 2019-08-04 18:42 | US ---
EXAMINATION TYPE: US gallbladder DATE OF EXAM: 08/04/2019 COMPARISON: NM & US CLINICAL HISTORY: ruq pain. Pain EXAM MEASUREMENTS: Liver Length: 18.5 cm Gallbladder Wall: 0.2 cm CBD: 0.5 cm Right Kidney: 11.7 x 3.7 x 4.7 cm Pt moving and breathing heavy during exam Pancreas: wnl Liver: Mildly enlarged Gallbladder: wnl Evidence for sonographic Domingo's sign: Yes CBD: wnl Right Kidney: wnl No abnormality to account for pt's pain IMPRESSION: Negative exam. No gallstones or dilated ducts. Normal right kidney.
[2019-08-04 18:45] LABS: Basophils # (A) 0.1 k/uL (0-0.2); Basophils % (A) 1 %; Eosinophils # (A) 0.3 k/uL (0-0.7); Eosinophils % (A) 3 %; HCT 39.9 % (34.0-46.0); HGB 12.4 gm/dL (11.4-16.0); Lymphocytes % (A) 22 %; MCH 19.7 pg (25.0-35.0); MCHC 31.1 g/dL (31.0-37.0); MCV 63.2 fL (80.0-100.0); Mean Platelet Volume 7.1; Microcytosis Marked; Monocytes # (A) 0.7 k/uL (0-1.0); Monocytes % (A) 7 %; Neutrophils # (A) 5.8 k/uL (1.3-7.7); Neutrophils % (A) 65 %; Platelet Count 265 k/uL (150-450); RBC 6.31 m/uL (3.80-5.40); RDW 14.9 % (11.5-15.5)
--- NOTE | 2019-08-04 18:50 | XR ---
EXAMINATION TYPE: XR KUB DATE OF EXAM: 08/04/2019 COMPARISON: 04/27/2015 HISTORY: Abdominal pain TECHNIQUE: Single view upright FINDINGS: There is no sign of intestinal obstruction or pneumoperitoneum. Fecal pattern is normal. Th ere are no pathologic calcifications over the kidneys. Lung bases are clear. Bony structures appear i ntact. IMPRESSION: Nonacute abdomen. No change.
[2019-08-04 18:53] LABS: Partial Thromboplastin Time 24.1 sec (22.0-30.0); Prothrombin Time 10.2 sec (9.0-12.0)
[2019-08-04 19:00] LABS: ALT 19 U/L (4-34); AST 27 U/L (14-36); African American GFR (CKD) >90 (>60 ml/min/1.73 sqM); Alkaline Phosphatase 71 U/L (38-126); Amylase 79 U/L (30-110); Anion Gap 14 mmol/L; Blood Urea Nitrogen 13 mg/dL (7-17); Calcium 10.2 mg/dL (8.4-10.2); Carbon Dioxide 20 mmol/L (22-30); Chloride 103 mmol/L (98-107); Glucose 89 mg/dL (74-99); Non-African American GFR(CKD) >90 (>60 ml/min/1.73 sqM); Potassium 4.4 mmol/L (3.5-5.1); Sodium 137 mmol/L (137-145); Total Bilirubin 2.8 mg/dL (0.2-1.3); Total Protein 8.2 g/dL (6.3-8.2)
[2019-08-04 19:02] LABS: Appearance,Urine Cloudy (Clear); Bacteria,Urine Rare /hpf; Bilirubin,Urine 1+ (Negative); Blood,Urine Negative (Negative); Color,Urine Yellow; Glucose,Urine (UA) Negative (Negative); Ketones,Urine 4+ (Negative); Leukocyte Esterase,Urine Large (Negative); Mucus,Urine Many /hpf; Nitrite,Urine Negative (Negative); PH, Urine 6.5 (5.0-8.0); Protein,Urine 1+ (Negative); Squamous Epithelial Cell,Urine 8 /hpf (0-4); WBC,Urine 61 /hpf (0-5)
[2019-08-04] MEDS ORDERED: cefTRIAXone IN SWFI 1,000 MG/10 ML SYRINGE IVP STA (19:06)
[2019-08-04] MEDS ORDERED: NALOXONE 0.4 MG/ML 1 ML VIAL IV PRN (19:12)
[2019-08-04] MEDS ORDERED: HYDROmorphone 0.5 MG/0.5 ML SYRINGE IVP PRN (19:12)
[2019-08-04] MEDS ORDERED: ONDANSETRON 4 MG/2 ML VIAL IVP PRN (19:12)
[2019-08-04] MEDS: SODIUM CHLORIDE 0.9% 1,000 ML IV SCH (19:48)
[2019-08-05] MEDS: MORPHINE SULFATE 2 MG/ML SYRINGE IVP PRN ×4 (00:53→21:09)
[2019-08-05] MEDS: SODIUM CHLORIDE 0.9% 1,000 ML IV SCH ×2 (06:15→18:10)
[2019-08-05 06:31] LABS: Basophils # (A) 0.1 k/uL (0-0.2); Basophils % (A) 1 %; Eosinophils # (A) 0.5 k/uL (0-0.7); Eosinophils % (A) 6 %; HCT 34.6 % (34.0-46.0); HGB 10.8 gm/dL (11.4-16.0); Hypochromasia Slight; Lymphocytes # (A) 2.5 k/uL (1.0-4.8); Lymphocytes % (A) 30 %; MCH 20.3 pg (25.0-35.0); MCHC 31.2 g/dL (31.0-37.0); MCV 65.1 fL (80.0-100.0); Mean Platelet Volume 7.3; Microcytosis Marked; Monocytes # (A) 0.5 k/uL (0-1.0); Monocytes % (A) 6 %; Neutrophils # (A) 4.5 k/uL (1.3-7.7); Neutrophils % (A) 56 %; Platelet Count 190 k/uL (150-450); RBC 5.32 m/uL (3.80-5.40); RDW 14.8 % (11.5-15.5); WBC 8.1 k/uL (3.8-10.6)
[2019-08-05 06:48] LABS: INR 1.1 (<1.2); Prothrombin Time 10.9 sec (9.0-12.0)
[2019-08-05 06:49] LABS: ALT 14 U/L (4-34); AST 23 U/L (14-36); African American GFR (CKD) >90 (>60 ml/min/1.73 sqM); Albumin 3.8 g/dL (3.5-5.0); Alkaline Phosphatase 47 U/L (38-126); Anion Gap 6 mmol/L; Blood Urea Nitrogen 14 mg/dL (7-17); Calcium 8.7 mg/dL (8.4-10.2); Carbon Dioxide 22 mmol/L (22-30); Chloride 109 mmol/L (98-107); Glucose 82 mg/dL (74-99); Non-African American GFR(CKD) >90 (>60 ml/min/1.73 sqM); Potassium 4.6 mmol/L (3.5-5.1); Sodium 137 mmol/L (137-145); Total Bilirubin 1.5 mg/dL (0.2-1.3); Total Protein 6.4 g/dL (6.3-8.2)
--- NOTE | 2019-08-05 09:36 | CONS ---
CONSULTATION DATE OF SERVICE: 08/05/2019 REQUESTING PHYSICIAN: Dr. Amilcar Griffin. REASON FOR CONSULTATION: Epigastric and right upper quadrant abdominal pain on and off for the last few weeks duration. HISTORY OF PRESENT ILLNESS: The patient is a 39-year-old pleasant white female who came into the emergency room because of severe epigastric and right upper quadrant abdominal pain that started last . She has been having these symptoms on and off for the last 6 months. In the past, she was investigated for gallbladder problems. She had a HIDA scan in April of this year that was unremarkable. She did have an ultrasound of the gallbladder done yesterday that was unremarkable. No gallstones or biliary ductal dilation. The pain since has been persistent, mostly in the epigastric area with a few episodes of nausea, vomiting. She takes occasional Motrin for chronic headaches. No prior history of peptic ulcer disease and never had an EGD done in the past. PAST MEDICAL HISTORY: Chronic headaches. MEDICATIONS: At home, Motrin p.r.n. PAST SURGICAL HISTORY: Tubal ligation and ovarian cyst surgery. SOCIAL HISTORY: Chronic smoker. No alcohol use. FAMILY HISTORY: Unremarkable. REVIEW OF SYSTEMS: CARDIOPULMONARY: No chest pain, shortness of breath. no dysuria or hematuria. MUSCULOSKELETAL unremarkable. SKIN unremarkable. ENDOCRINE unremarkable. PSYCHIATRIC unremarkable other than anxiety depression. NEUROLOGICAL: Unremarkable. CONSTITUTIONAL: No recent weight loss. No fever, chills, night sweats. PHYSICAL EXAMINATION: Blood pressure 103/67, pulse rate 83, temperature 98. HEENT examination unremarkable. Conjunctivae pink. Sclerae anicteric. Oral cavity no lesions. NECK no JVD. No lymph node enlargement. CHEST was clear to auscultation. HEART: Regular rate and rhythm. ABDOMEN: Soft. Mild tenderness in the epigastric and right upper quadrant area. Rest of the abdomen benign. EXTREMITIES: No pedal edema. SKIN no rashes. NEUROLOGIC: Alert and oriented x3. No focal deficits. LABS: WBC 9, hemoglobin 12.4, MCV 63, platelets are normal. PT/INR is normal. Basic metabolic panel is normal. Bilirubin is 2.8 but AST and ALT are within normal limits. IMPRESSION: 1. This is a lady who presented to the hospital with epigastric pain on and off for the last 6 months duration but much worse for the last 4 days. Recent ultrasound of the gallbladder as well as HIDA scan was unremarkable. Rule out peptic ulcer disease. 2. Microcytic anemia. RECOMMENDATIONS: 1. We will start on Protonix 40 mg twice daily. 2. Clear liquid diet but advance as tolerated. 3. Proceed with an upper endoscopy tomorrow to rule out peptic ulcer disease. I discussed with her risks, benefits, and complications of procedure and she is agreeable to it. Thank you for this consultation. MMODL / IJN: [id number] /
[2019-08-05] MEDS: KETOROLAC 30 MG/ML 1 ML VIAL IVP PRN ×2 (09:52→18:11)
[2019-08-05] MEDS: PANTOPRAZOLE 40 MG TABLET PO SCH (09:52)
--- NOTE | 2019-08-05 14:36 | HP ---
HISTORY AND PHYSICAL DATE OF SERVICE: 08/05/2019. CHIEF COMPLAINT: A 19-year-old white female with right upper quadrant abdominal pain over the past few weeks duration. She states she woke up 2 days ago, severe pain, but it is intermittent for the last 6 months. States she had negative HIDA scan in the last 2 months. She had ultrasound shows negative. She has elevated bilirubin of 2.8 and right flank pain and the right upper quadrant pain. She takes Motrin for chronic headaches, otherwise no medications. Never had a history of peptic ulcer disease or any other problems before except for chronic migraine. She takes no meds as mentioned earlier. REVIEW OF SYSTEMS: Fourteen-point review of systems negative except for mentioned in HPI cough. FAMILY HISTORY: Negative. SOCIAL HISTORY: Chronic smoker, marijuana. No alcohol. No drugs. PHYSICAL EXAMINATION: Blood pressure 103/67, pulse 80s, temperature 98, respiratory 12-14. Pupils equal, round, reactive. CARDIOVASCULAR: S1, S2. Lungs clear. GI soft. Mild right flank tenderness to palpation. Hematology negative Homans. Psych: Fair mood and affect. White count is 9, hemoglobin 12.4, platelets normal. Bilirubin is 2.8. AST, ALT are normal. ASSESSMENT: 1. Epigastric pain, right flank pain, worse over the last couple days. 2. Microcytic anemia. 3. Possible urinary tract infection. Protonix 40 b.i.d., clear liquid diet. EGD tomorrow. Rule out peptic ulcer disease. Ultrasound was negative for gallbladder disease. Please see further orders for GI physician. Treat for UTI at this time. MMODL / IJN: [id number] /
[2019-08-05 15:41] VITALS: BMI 17.5
[2019-08-06 06:46] LABS: Basophils % (A) 0 %; Eosinophils # (A) 0.3 k/uL (0-0.7); Eosinophils % (A) 5 %; HCT 30.2 % (34.0-46.0); HGB 9.4 gm/dL (11.4-16.0); Hypochromasia Marked; Lymphocytes # (A) 2.1 k/uL (1.0-4.8); Lymphocytes % (A) 34 %; MCH 20.8 pg (25.0-35.0); MCHC 31.1 g/dL (31.0-37.0); MCV 66.7 fL (80.0-100.0); Mean Platelet Volume 7.6; Microcytosis Marked; Monocytes # (A) 0.3 k/uL (0-1.0); Monocytes % (A) 5 %; Neutrophils # (A) 3.4 k/uL (1.3-7.7); Neutrophils % (A) 54 %; Platelet Count 174 k/uL (150-450); RBC 4.53 m/uL (3.80-5.40); RDW 14.7 % (11.5-15.5); WBC 6.3 k/uL (3.8-10.6)
[2019-08-06 06:56] LABS: ALT 12 U/L (4-34); AST 22 U/L (14-36); African American GFR (CKD) >90 (>60 ml/min/1.73 sqM); Albumin 2.9 g/dL (3.5-5.0); Alkaline Phosphatase 37 U/L (38-126); Anion Gap 4 mmol/L; Blood Urea Nitrogen 10 mg/dL (7-17); Carbon Dioxide 22 mmol/L (22-30); Chloride 112 mmol/L (98-107); Glucose 89 mg/dL (74-99); Non-African American GFR(CKD) >90 (>60 ml/min/1.73 sqM); Potassium 4.4 mmol/L (3.5-5.1); Sodium 138 mmol/L (137-145); Total Bilirubin 0.9 mg/dL (0.2-1.3); Total Protein 5.5 g/dL (6.3-8.2)
[2019-08-06] MEDS: PANTOPRAZOLE 40 MG TABLET PO SCH (07:36)
[2019-08-06] MEDS: KETOROLAC 30 MG/ML 1 ML VIAL IVP PRN ×3 (08:24→23:42)
[2019-08-06] MEDS: SODIUM CHLORIDE 0.9% 1,000 ML IV SCH ×2 (08:24→15:53)
[2019-08-06] MEDS: MORPHINE SULFATE 2 MG/ML SYRINGE IVP PRN (10:51)
[2019-08-06] MEDS ORDERED: PROPOFOL 10 MG/ML 20 ML VIAL IV ONE (12:39)
[2019-08-06] MEDS ORDERED: IV FLUID CONTINUATION 1,000 ML IV ONE ×2 (12:39)
[2019-08-06] MEDS ORDERED: LIDOCAINE 1% INJ 10MG/ML (20 ML MDV) ONE (12:39)
--- NOTE | 2019-08-06 12:58 | P.PCN ---
Date of Procedure: 08/06/19 Description of Procedure: BRIEF HISTORY: Patient is a 39-year-old male who presents to Hospital epigastric abdominal pain. He has been present for the past 6 months but worse over the past 4 days. Ultrasound gallbladder as well as HIDA scan unremarkable. PROCEDURE PERFORMED: Esophagogastroduodenoscopy with biopsy. PREOPERATIVE DIAGNOSIS: Epigastric abdominal pain. ESTIMATED BLOOD LOSS: Minimal. IV sedation per anesthesia. PROCEDURE: After informed consent was obtained, the patient was brought into the endoscopy unit. IV sedation was administered by Anesthesia under continuous monitoring. Initially the Olympus GIF-190 video endoscope was inserted into the mouth. Es ophagus intubated without any difficulty. It was gradually advanced into the stomach and duodenum and carefully examined. The bulb and the second part of the duodenum appeared normal, with biopsies taken. The scope at this time was withdrawn to the stomach, adequately insufflated with air, and upon careful examination, mucosa of the antrum, body, cardia and the fundus appeared normal, with some mild scattered erythema in the antrum and body suggestive of mild gastritis with biopsies taken. The scope was then withdrawn into the esophagus. The GE junction was located at 41 cm from the incisors, and appeared normal with biopsies of the Z line taken. The esophagus appeared normal. There were no erosions or ulcerations seen and the patient tolerated the procedure well. IMPRESSION: 1. Mild gastritis antrum body, biopsied. 2. Biopsies of the duodenum and Z line. RECOMMENDATIONS: The findings of this examination were discussed with the patient. Okay to resume diet. Okay to resume medications. Continue medical management. Okay for discharge when otherwise medically stable.
--- NOTE | 2019-08-06 22:48 | PN ---
PROGRESS NOTE Dr. Alvarado apparently did a scope on this patient today. She had some biopsies taken from the duodenum. She had mild gastritis. Antrum biopsy. Okay to resume diet. Home medicines. Possible discharge home. Will follow up as an outpatient. She is medically stable. She has protein-calorie malnutrition. Urine culture was negative for any infection. Possible discharge home tomorrow, as she is pretty much stable from medical standpoint as far as we can tell. MMODL / IJN: [id number] /
[2019-08-07] MEDS: PANTOPRAZOLE 40 MG TABLET PO SCH (06:08)
[2019-08-07 09:20] VITALS: BP 100/61; PULSE 62; RESP 20; TEMP 98.6
--- NOTE | 2019-08-08 15:26 | P.DS ---
Providers Date of admission: 08/06/19 08:48 Expected date of discharge: 08/07/19 Attending physician: Amilcar Griffin Consults: 08/04/19 19:13 Consult Physician Routine Consulting Provider: Babs Hubbard Consult Reason/Comments: Ab pain Do you want consulting provider notified?: Yes Primary care physician: Amilcar Griffin [facility] Course: Final diagnoses Final Diagnoses: Subacute abdominal pain secondary to mild antrum gastritis Possible acute UTI Anxiety Depression Ongoing nicotine dependence Hospital course: This a 39-year-old female admitted with abdominal pain and multiple other medical issues. KUB reported nonacute, no change. Gallbladder ultrasound reported negative exam. Evaluated by GI. Underwent EGD with biopsies, reportedly mild antral gastritis. Tolerated procedure well. Cleared by GI for discharge. Patient is being discharged home in a stable condition with guarded prognosis. The impression and plan of care has been dictated as directed. : I performed a history and examination of this patient, discussed the same with the dictator. I agree with the dictator's note ,documented as a scribe. Any additional findings or plans will be noted. Patient Condition at Discharge: Stable Plan - Discharge Summary Discharge Rx Participant: Yes New Discharge Prescriptions: Continue Cephalexin [Keflex] 500 mg PO Q6HR #40 cap Discharge Medication List Cephalexin [Keflex] 500 mg PO Q6HR #40 cap 07/25/19 [Rx] Follow up Appointment(s)/Referral(s): Amilcar Griffin MD [Primary Care Provider] - 08/09/19 8:45 am Mono Alvarado MD [STAFF PHYSICIAN] - 2 Weeks Activity/Diet/Wound Care/Special Instructions: Continue diet as tolerated. fluids are always encouraged. continue tylenol or motrin for pain. Follow up with physician as directed. Call physician with any questions comments concerns worsening returning symptoms, fever shortness of breath or cough, not tolerating diet or fluids, pain not controlled by tylenol or motrin. Discharge Disposition: HOME SELF-CARE
== END 2019-08-07 10:30 | disposition home or self-care (01) | DRG 392 ==
LOC: EC 17:41 → 6PED 19:12 → OBSVTOIN 08-06 08:48
PROVIDERS: ADMIT Family Medicine; ATTEND Family Medicine
PROC: 0DB98ZX Excision of Duodenum, Via Natural or Artificial Opening Endoscopic, Diagnostic (ICD-10-PCS; principal; 2019-08-06 08:05)
PROC: 0DB68ZX Excision of Stomach, Via Natural or Artificial Opening Endoscopic, Diagnostic (ICD-10-PCS; principal; 2019-08-06 08:05)
PROC: 0DB78ZX Excision of Stomach, Pylorus, Via Natural or Artificial Opening Endoscopic, Diagnostic (ICD-10-PCS; principal; 2019-08-06 08:05)
DX: K29.70 Gastritis, unspecified, without bleeding (principal); E46 Unspecified protein-calorie malnutrition; Z68.1 Body mass index [BMI] 19.9 or less, adult; K59.00 Constipation, unspecified; D50.9 Iron deficiency anemia, unspecified; E86.0 Dehydration; F17.210 Nicotine dependence, cigarettes, uncomplicated; E80.6 Other disorders of bilirubin metabolism; R51 Headache; Z87.11 Personal history of peptic ulcer disease; Z79.1 Long term (current) use of non-steroidal anti-inflammatories (NSAID); Z11.59 Encounter for screening for other viral diseases
CPT/HCPCS: 36415; 43239; 74018; 76705; 80053; 81001; 81025; 82150; 83690; 83735; 85025; 85610; 85730; 87086; 96374; 96375; 99285

== ENCOUNTER 2019-12-19 13:10 | Emergency (ER) | payer OTHER ==
[2019-12-19 14:12] LABS: Appearance,Urine Cloudy (Clear); Bacteria,Urine Rare /hpf; Bilirubin,Urine 1+ (Negative); Blood,Urine Trace (Negative); Calcium Oxalate Crystals,Urine Few /hpf; Color,Urine Dark Brown; Glucose,Urine (UA) Negative (Negative); Hyaline Casts,Urine 3 /lpf (0-2); Ketones,Urine Trace (Negative); Leukocyte Esterase,Urine Large (Negative); Mucus,Urine Many /hpf; Nitrite,Urine Negative (Negative); Protein,Urine 1+ (Negative); RBC,Urine 17 /hpf (0-5); Squamous Epithelial Cell,Urine 22 /hpf (0-4); WBC,Urine 15 /hpf (0-5)
[2019-12-19] MEDS ORDERED: ONDANSETRON 4 MG/2 ML VIAL IVP STA (14:20)
[2019-12-19] MEDS ORDERED: SODIUM CHLORIDE 0.9% 1,000 ML IV STA (14:20)
[2019-12-19] MEDS ORDERED: MORPHINE SULFATE 4 MG/ML SYRINGE IV STA (14:20)
--- NOTE | 2019-12-19 14:26 | ED ---
Abdominal Pain HPI - General Chief Complaint: Abdominal Pain Stated Complaint: lower back pain Time Seen by Provider: 12/19/19 14:12 Source: patient Mode of arrival: ambulatory Limitations: no limitations - History of Present Illness Initial Comments: 39-year-old female with history of pyelonephritis and renal stones presenting to emergency Department with chief complaint of flank pain. Patient states her symptoms began 3 days ago with gradual increase in severity and bilateral Mccormack. Patient states more right versus left. She does report nausea but no vomiting. States he feels like she has "kidney infection and a bladder infection". Patient reports there is dysuria, increased urgency and frequency. She denies hematuria, hematochezia or melena. Denies any vaginal symptoms. Reports some suprapubic abdominal pain. Denies any constipation or diarrhea. Does report chills but no fevers because she did not have a thermometer. States she has been previously admitted for IV antibiotics after having a kidney infection. - Related Data Home Medications Medication Instructions Recorded Confirmed Ibuprofen [Motrin] 800 mg PO Q8H PRN 12/19/19 12/19/19 Previous Rx's Medication Instructions Recorded Azithromycin [Zithromax Z-pack (6 0 mg PO DIRECTED #1 pack 12/19/19 tabs)] Cephalexin [Keflex] 500 mg PO Q6HR #40 cap 12/19/19 Allergies Allergy/AdvReac Type Severity Reaction Status Date / Time No Known Allergies Allergy Verified 12/19/19 15:06 Review of Systems ROS Statement: Those systems with pertinent positive or pertinent negative responses have been documented in the HPI. ROS Other: All systems not noted in ROS Statement are negative. Past Medical History Past Medical History: No Reported History Additional Past Medical History / Comment(s): migraine, kidney infection, History of Any Multi-Drug Resistant Organisms: ESBL Date of last positivie culture/infection: 07/28/16 MDRO Source:: ESBL URINE Past Surgical History: Orthopedic Surgery, Tubal Ligation Additional Past Surgical History / Comment(s): ovarian cyst, left knee surgery, Past Anesthesia/Blood Transfusion Reactions: No Reported Reaction Past Psychological History: Anxiety, Depression Smoking Status: Current every day smoker Past Alcohol Use History: Occasional Past Drug Use History: Cocaine, Marijuana, Methamphetamine - Past Family History Mother Family Medical History: No Reported History Father Family Medical History: No Reported History General Exam Limitations: no limitations General appearance: alert, in no apparent distress Head exam: Present: atraumatic, normocephalic, normal inspection Eye exam: Present: normal appearance, PERRL, EOMI Pupils: Present: normal accommodation ENT exam: Present: normal exam, normal oropharynx, mucous membranes moist, TM's normal bilaterally, normal external ear exam Neck exam: Present: normal inspection, full ROM. Absent: tenderness, meningismus, lymphadenopathy, thyromegaly Respiratory exam: Present: normal lung sounds bilaterally. Absent: respiratory distress, wheezes Cardiovascular Exam: Present: normal rhythm, tachycardia, normal heart sounds GI/Abdominal exam: Present: soft, tenderness (Mild suprapubic tenderness), normal bowel sounds. Absent: distended, guarding, rebound, rigid Extremities exam: Present: normal inspection, full ROM, normal capillary refill, other (+2 ulnar and radial pulses bilateral.). Absent: tenderness, pedal edema, joint swelling, calf tenderness Back exam: Present: normal inspection, full ROM, CVA tenderness (R). Absent: tenderness, CVA tenderness (L), muscle spasm, paraspinal tenderness, vertebral tenderness Neurological exam: Present: alert, oriented X3, CN II-XII intact, normal gait Psychiatric exam: Present: normal affect, normal mood. Absent: depressed, agitated Skin exam: Present: warm, dry, intact, normal color Course Vital Signs 12/19/19 13:11 Temperature 98.8 F Pulse Rate 114 H Respiratory 18 Rate Blood Pressure 146/83 O2 Sat by Pulse 100 Oximetry Medical Decision Making - Medical Decision Making 39-year-old female with a pyelonephritis and renal stones presenting to the emergency department with a chief complaint of flank pain. Physical examination she has right CVA tenderness more persistent left. Patient was given IV fluids, analgesia and antiemetics. Patient given a gram of Rocephin and will be discharged with azithromycin and Keflex. Urine culture pending. UA shows elevated leukocyte esterase, red blood cells, white blood cells. Trace amounts of blood and ketones. Return parameters thoroughly discussed with patient was understanding ago. Case discussed with physician. - Lab Data Result diagrams: 12/19/19 14:29 12/19/19 14:29 Lab Results 12/19/19 12/19/19 12/19/19 Range/Units 13:28 13:28 14:29 WBC 9.0 (3.8-10.6) k/uL RBC 6.05 H (3.80-5.40) m/uL Hgb 12.3 (11.4-16.0) gm/dL Hct 40.2 (34.0-46.0) % MCV 66.4 L (80.0-100.0) fL MCH 20.3 L (25.0-35.0) pg MCHC 30.6 L (31.0-37.0) g/dL RDW 15.2 (11.5-15.5) % Plt Count 262 (150-450) k/uL MPV 7.3 Neutrophils % 67 % Lymphocytes % 22 % Monocytes % 5 % Eosinophils % 3 % Basophils % 0 % Neutrophils # 6.0 (1.3-7.7) k/uL Lymphocytes # 2.0 (1.0-4.8) k/uL Monocytes # 0.5 (0-1.0) k/uL Eosinophils # 0.3 (0-0.7) k/uL Basophils # 0.0 (0-0.2) k/uL Hypochromasia Moderate Microcytosis Marked Sodium (137-145) mmol/L Potassium (3.5-5.1) mmol/L Chloride (98-107) mmol/L Carbon Dioxide (22-30) mmol/L Anion Gap mmol/L BUN (7-17) mg/dL Creatinine (0.52-1.04) mg/dL Est GFR (CKD-EPI)AfAm (>60 ml/min/1.73 sqM) Est GFR (CKD-EPI)NonAf (>60 ml/min/1.73 sqM) Glucose (74-99) mg/dL Calcium (8.4-10.2) mg/dL Total Bilirubin (0.2-1.3) mg/dL AST (14-36) U/L ALT (4-34) U/L Alkaline Phosphatase (38-126) U/L Total Protein (6.3-8.2) g/dL Albumin (3.5-5.0) g/dL Lipase (23-300) U/L Urine Color Dark Brown Urine Appearance Cloudy H (Clear) Urine pH 6.0 (5.0-8.0) Ur Specific Sutton 1.040 H (1.001-1.035) Urine Protein 1+ H (Negative) Urine Glucose (UA) Negative (Negative) Urine Ketones Trace H (Negative) Urine Blood Trace H (Negative) Urine Nitrite Negative (Negative) Urine Bilirubin 1+ H (Negative) Urine Urobilinogen 3.0 (<2.0) mg/dL Ur Leukocyte Esterase Large H (Negative) Urine RBC 17 H (0-5) /hpf Urine WBC 15 H (0-5) /hpf Ur Squamous Epith Cells 22 H (0-4) /hpf Calcium Oxalate Crystal Few H (None) /hpf Urine Bacteria Rare H (None) /hpf Hyaline Casts 3 H (0-2) /lpf Urine Mucus Many H (None) /hpf Urine HCG, Qual Not Detected (Not Detectd) 12/19/19 Range/Units 14:29 WBC (3.8-10.6) k/uL RBC (3.80-5.40) m/uL Hgb (11.4-16.0) gm/dL Hct (34.0-46.0) % MCV (80.0-100.0) fL MCH (25.0-35.0) pg MCHC (31.0-37.0) g/dL RDW (11.5-15.5) % Plt Count (150-450) k/uL MPV Neutrophils % % Lymphocytes % % Monocytes % % Eosinophils % % Basophils % % Neutrophils # (1.3-7.7) k/uL Lymphocytes # (1.0-4.8) k/uL Monocytes # (0-1.0) k/uL Eosinophils # (0-0.7) k/uL Basophils # (0-0.2) k/uL Hypochromasia Microcytosis Sodium 138 (137-145) mmol/L Potassium 3.9 (3.5-5.1) mmol/L Chloride 104 (98-107) mmol/L Carbon Dioxide 27 (22-30) mmol/L Anion Gap 7 mmol/L BUN 12 (7-17) mg/dL Creatinine 0.66 (0.52-1.04) mg/dL Est GFR (CKD-EPI)AfAm >90 (>60 ml/min/1.73 sqM) Est GFR (CKD-EPI)NonAf >90 (>60 ml/min/1.73 sqM) Glucose 80 (74-99) mg/dL Calcium 9.9 (8.4-10.2) mg/dL Total Bilirubin 1.2 (0.2-1.3) mg/dL AST 25 (14-36) U/L ALT 15 (4-34) U/L Alkaline Phosphatase 54 (38-126) U/L Total Protein 7.8 (6.3-8.2) g/dL Albumin 4.8 (3.5-5.0) g/dL Lipase 365 H (23-300) U/L Urine Color Urine Appearance (Clear) Urine pH (5.0-8.0) Ur Specific Sutton (1.001-1.035) Urine Protein (Negative) Urine Glucose (UA) (Negative) Urine Ketones (Negative) Urine Blood (Negative) Urine Nitrite (Negative) Urine Bilirubin (Negative) Urine Urobilinogen (<2.0) mg/dL Ur Leukocyte Esterase (Negative) Urine RBC (0-5) /hpf Urine WBC (0-5) /hpf Ur Squamous Epith Cells (0-4) /hpf Calcium Oxalate Crystal (None) /hpf Urine Bacteria (None) /hpf Hyaline Casts (0-2) /lpf Urine Mucus (None) /hpf Urine HCG, Qual (Not Detectd) Disposition Clinical Impression: Flank pain, Urinary tract infection Disposition: HOME SELF-CARE Condition: Stable Instructions (If sedation given, give patient instructions): Abdominal Pain (ED) Additional Instructions: Take prescribed medication as directed. Follow with her primary care physician. Return to emergency department if symptoms worsen. Prescriptions: Cephalexin [Keflex] 500 mg PO Q6HR #40 cap Azithromycin [Zithromax Z-pack (6 tabs)] 0 mg PO DIRECTED #1 pack Is patient prescribed a controlled substance at d/c from ED?: No Referrals: Amilcar Griffin MD [Primary Care Provider] - 1-2 days Time of Disposition: 15:38
[2019-12-19 14:54] LABS: Basophils % (A) 0 %; Eosinophils # (A) 0.3 k/uL (0-0.7); Eosinophils % (A) 3 %; HCT 40.2 % (34.0-46.0); HGB 12.3 gm/dL (11.4-16.0); Hypochromasia Moderate; Lymphocytes % (A) 22 %; MCH 20.3 pg (25.0-35.0); MCHC 30.6 g/dL (31.0-37.0); MCV 66.4 fL (80.0-100.0); Mean Platelet Volume 7.3; Microcytosis Marked; Monocytes # (A) 0.5 k/uL (0-1.0); Monocytes % (A) 5 %; Neutrophils % (A) 67 %; Platelet Count 262 k/uL (150-450); RBC 6.05 m/uL (3.80-5.40); RDW 15.2 % (11.5-15.5)
--- NOTE | 2019-12-19 15:03 | XR ---
EXAMINATION TYPE: XR KUB DATE OF EXAM: 12/19/2019 COMPARISON: NONE HISTORY: Pain TECHNIQUE: Single supine KUB image of the abdomen is obtained FINDINGS: Small bowel demonstrates no evidence for dilatation or air fluid levels. Gas and fecal material is seen in non-distended colon. No convincing evidence for pneumoperitoneum. No unusual calcifications. The lung bases are clear. The osseous structures are intact. IMPRESSION: 1. Overall nonobstructive bowel gas pattern.
[2019-12-19] MEDS ORDERED: cefTRIAXone IN SWFI 1,000 MG/10 ML SYRINGE IVP STA (15:18)
[2019-12-19 15:19] LABS: ALT 15 U/L (4-34); AST 25 U/L (14-36); African American GFR (CKD) >90 (>60 ml/min/1.73 sqM); Albumin 4.8 g/dL (3.5-5.0); Alkaline Phosphatase 54 U/L (38-126); Anion Gap 7 mmol/L; Blood Urea Nitrogen 12 mg/dL (7-17); Calcium 9.9 mg/dL (8.4-10.2); Carbon Dioxide 27 mmol/L (22-30); Chloride 104 mmol/L (98-107); Glucose 80 mg/dL (74-99); Lipase 365 U/L (23-300); Non-African American GFR(CKD) >90 (>60 ml/min/1.73 sqM); Potassium 3.9 mmol/L (3.5-5.1); Sodium 138 mmol/L (137-145); Total Bilirubin 1.2 mg/dL (0.2-1.3); Total Protein 7.8 g/dL (6.3-8.2)
[2019-12-19 15:53] VITALS: BP 115/72; PULSE 73; RESP 16; TEMP 98.2
== END 2019-12-19 15:50 | disposition home or self-care (01) ==
LOC: EC 13:10
DX: N20.0 Calculus of kidney (principal); N39.0 Urinary tract infection, site not specified; F17.200 Nicotine dependence, unspecified, uncomplicated; Z86.69 Personal history of other diseases of the nervous system and sense organs; R00.0 Tachycardia, unspecified
CPT/HCPCS: 36415; 80053; 83690; 85025; 81001; 81025; 87086; 74018; 99284; 96374; 96375 ×2; 96361; J2270; J2405; J0696

== ENCOUNTER 2020-09-27 18:51 | Emergency (ER) | payer OTHER ==
[2020-09-27] MEDS ORDERED: KETOROLAC 15 MG/ML 1 ML VIAL IVP STA (19:46)
[2020-09-27] MEDS ORDERED: SODIUM CHLORIDE 0.9% 1,000 ML IV STA (19:46)
[2020-09-27] MEDS ORDERED: ONDANSETRON 4 MG/2 ML VIAL IVP STA (19:46)
--- NOTE | 2020-09-27 20:02 | ED ---
Abdominal Pain HPI - General Chief Complaint: Abdominal Pain Stated Complaint: Poss Ovarian Cyst Time Seen by Provider: 09/27/20 19:42 Source: patient Mode of arrival: ambulatory Limitations: no limitations - History of Present Illness Initial Comments: 40-year-old female presenting to emergency Department with chief complaint of abdominal pain. Patient reports the pain is located in the left lower quadrant regions started approximately 2 days ago without any radiation. Pain does not appear to be postprandial. States she's had similar pain like this before when she had an ovarian cyst rupture. States that she does have history of bilateral ovarian cyst and she had to have one removed prior to this. She denies any urinary or vaginal symptoms at this time. Denies any possibility for . - Related Data Home Medications Medication Instructions Recorded Confirmed Ibuprofen [Motrin] 800 mg PO Q8H PRN 12/19/19 12/19/19 Previous Rx's Medication Instructions Recorded Azithromycin [Zithromax] 2 tablet PO ONCE 1 Days #2 tab 12/19/19 Cephalexin [Keflex] 500 mg PO Q6HR #40 cap 12/19/19 Allergies Allergy/AdvReac Type Severity Reaction Status Date / Time No Known Allergies Allergy Verified 09/27/20 18:57 Review of Systems ROS Statement: Those systems with pertinent positive or pertinent negative responses have been documented in the HPI. ROS Other: All systems not noted in ROS Statement are negative. Past Medical History Past Medical History: No Reported History Additional Past Medical History / Comment(s): migraine, kidney infection, ovarian cysts. History of Any Multi-Drug Resistant Organisms: ESBL Date of last positivie culture/infection: 07/28/16 MDRO Source:: ESBL URINE Past Surgical History: Orthopedic Surgery, Tubal Ligation Additional Past Surgical History / Comment(s): ovarian cyst, left knee surgery, Past Anesthesia/Blood Transfusion Reactions: No Reported Reaction Past Psychological History: Anxiety, Depression Smoking Status: Current every day smoker Past Alcohol Use History: Occasional Past Drug Use History: Cocaine, Marijuana, Methamphetamine - Past Family History Mother Family Medical History: No Reported History Father Family Medical History: No Reported History General Exam Limitations: no limitations General appearance: alert, in no apparent distress Head exam: Present: atraumatic, normocephalic, normal inspection Eye exam: Present: normal appearance, PERRL Pupils: Present: normal accommodation ENT exam: Present: normal exam, normal oropharynx, mucous membranes moist Neck exam: Present: normal inspection, full ROM. Absent: tenderness Respiratory exam: Present: normal lung sounds bilaterally. Absent: respiratory distress, wheezes, rales, rhonchi, stridor, chest wall tenderness, accessory muscle use Cardiovascular Exam: Present: regular rate, normal rhythm, normal heart sounds. Absent: systolic murmur, diastolic murmur GI/Abdominal exam: Present: soft, tenderness (Left lower quadrant tenderness). Absent: distended, guarding, rebound, rigid Extremities exam: Present: normal inspection, full ROM, normal capillary refill. Absent: tenderness, pedal edema, joint swelling Back exam: Present: normal inspection, full ROM. Absent: tenderness, CVA tenderness (R), CVA tenderness (L) Neurological exam: Present: alert, oriented X3 Psychiatric exam: Present: normal affect, normal mood Skin exam: Present: warm, dry, intact, normal color Course Vital Signs 09/27/20 09/27/20 18:53 21:37 Temperature 98.1 F Pulse Rate 92 68 Respiratory 20 18 Rate Blood Pressure 111/76 129/99 O2 Sat by Pulse 100 100 Oximetry Medical Decision Making - Medical Decision Making 40-year-old female presenting to emergency Department with chief complaint of abdominal pain. on physical examination, left lower quadrant tenderness. Patient is otherwise well-appearing. Laboratory work is unremarkable. Transvaginal ultrasound reveals a collapsing left-sided ovarian cyst. There is also free fluid. Patient likely experienced a ruptured ovarian cyst. Patient was given analgesia in the emergency department along with fluids and antiemetics. She will be discharged with analgesics, Tylenol 3 starter pack. She will follow-up with her occasional babysitter. Return parameters were thoroughly discussed patient is an attending ago. Case discussed with - Lab Data Result diagrams: 09/27/20 20:15 09/27/20 20:15 Lab Results 09/27/20 09/27/20 09/27/20 Range/Units 20:15 20:15 20:15 WBC 9.9 (3.8-10.6) k/uL RBC 6.01 H (3.80-5.40) m/uL Hgb 12.3 (11.4-16.0) gm/dL Hct 39.2 (34.0-46.0) % MCV 65.3 L (80.0-100.0) fL MCH 20.5 L (25.0-35.0) pg MCHC 31.4 (31.0-37.0) g/dL RDW 15.3 (11.5-15.5) % Plt Count 240 (150-450) k/uL MPV 8.3 Neutrophils % 69 % Lymphocytes % 21 % Monocytes % 5 % Eosinophils % 3 % Basophils % 1 % Neutrophils # 6.8 (1.3-7.7) k/uL Lymphocytes # 2.1 (1.0-4.8) k/uL Monocytes # 0.5 (0-1.0) k/uL Eosinophils # 0.3 (0-0.7) k/uL Basophils # 0.1 (0-0.2) k/uL Hypochromasia Slight Microcytosis Marked Sodium 137 (137-145) mmol/L Potassium 3.8 (3.5-5.1) mmol/L Chloride 104 (98-107) mmol/L Carbon Dioxide 24 (22-30) mmol/L Anion Gap 9 mmol/L BUN 8 (7-17) mg/dL Creatinine 0.69 (0.52-1.04) mg/dL Est GFR (CKD-EPI)AfAm >90 (>60 ml/min/1.73 sqM) Est GFR (CKD-EPI)NonAf >90 (>60 ml/min/1.73 sqM) Glucose 82 (74-99) mg/dL Calcium 9.7 (8.4-10.2) mg/dL Total Bilirubin 0.9 (0.2-1.3) mg/dL AST 28 (14-36) U/L ALT 24 (4-34) U/L Alkaline Phosphatase 68 (38-126) U/L Total Protein 7.1 (6.3-8.2) g/dL Albumin 4.4 (3.5-5.0) g/dL Lipase 185 (23-300) U/L Urine Color Light Yellow Urine Appearance Clear (Clear) Urine pH 7.5 (5.0-8.0) Ur Specific [place] 1.004 (1.001-1.035) Urine Protein Negative (Negative) Urine Glucose (UA) Negative (Negative) Urine Ketones Negative (Negative) Urine Blood Negative (Negative) Urine Nitrite Negative (Negative) Urine Bilirubin Negative (Negative) Urine Urobilinogen <2.0 (<2.0) mg/dL Ur Leukocyte Esterase Negative (Negative) Disposition Clinical Impression: Ovarian cyst rupture Disposition: HOME SELF-CARE Condition: Stable Instructions (If sedation given, give patient instructions): Ruptured Ovarian Cyst (ED) Additional Instructions: Please return to the Emergency Department if symptoms worsen or any other concerns. Follow up with her occasional babysitter. Is patient prescribed a controlled substance at d/c from ED?: No Referrals: Amilcar Griffin MD [Primary Care Provider] - 1-2 days Time of Disposition: 21:52
[2020-09-27 20:39] LABS: Basophils # (A) 0.1 k/uL (0-0.2); Basophils % (A) 1 %; Eosinophils # (A) 0.3 k/uL (0-0.7); Eosinophils % (A) 3 %; HCT 39.2 % (34.0-46.0); HGB 12.3 gm/dL (11.4-16.0); Hypochromasia Slight; Lymphocytes # (A) 2.1 k/uL (1.0-4.8); Lymphocytes % (A) 21 %; MCH 20.5 pg (25.0-35.0); MCHC 31.4 g/dL (31.0-37.0); MCV 65.3 fL (80.0-100.0); Mean Platelet Volume 8.3; Microcytosis Marked; Monocytes # (A) 0.5 k/uL (0-1.0); Monocytes % (A) 5 %; Neutrophils # (A) 6.8 k/uL (1.3-7.7); Neutrophils % (A) 69 %; Platelet Count 240 k/uL (150-450); RBC 6.01 m/uL (3.80-5.40); RDW 15.3 % (11.5-15.5); WBC 9.9 k/uL (3.8-10.6)
[2020-09-27 20:40] LABS: Appearance,Urine Clear (Clear); Bilirubin,Urine Negative (Negative); Blood,Urine Negative (Negative); Color,Urine Light Yellow; Glucose,Urine (UA) Negative (Negative); Ketones,Urine Negative (Negative); Leukocyte Esterase,Urine Negative (Negative); Nitrite,Urine Negative (Negative); PH, Urine 7.5 (5.0-8.0); Protein,Urine Negative (Negative); Specific Gravity,Urine 1.004 (1.001-1.035); Urobilinogen,Urine <2.0 mg/dL (<2.0)
[2020-09-27] MEDS ORDERED: HYDROmorphone 0.5 MG/0.5 ML SYRINGE IVP STA ×2 (20:46→21:32)
[2020-09-27 20:52] LABS: ALT 24 U/L (4-34); AST 28 U/L (14-36); African American GFR (CKD) >90 (>60 ml/min/1.73 sqM); Albumin 4.4 g/dL (3.5-5.0); Alkaline Phosphatase 68 U/L (38-126); Anion Gap 9 mmol/L; Blood Urea Nitrogen 8 mg/dL (7-17); Calcium 9.7 mg/dL (8.4-10.2); Carbon Dioxide 24 mmol/L (22-30); Chloride 104 mmol/L (98-107); Glucose 82 mg/dL (74-99); Lipase 185 U/L (23-300); Non-African American GFR(CKD) >90 (>60 ml/min/1.73 sqM); Potassium 3.8 mmol/L (3.5-5.1); Sodium 137 mmol/L (137-145); Total Bilirubin 0.9 mg/dL (0.2-1.3); Total Protein 7.1 g/dL (6.3-8.2)
--- NOTE | 2020-09-27 21:41 | US ---
EXAMINATION TYPE: US transvaginal DATE OF EXAM: 09/27/2020 COMPARISON: US CLINICAL HISTORY: r/o torsion. hx of cysts. LLQ pain x 2 days TECHNIQUE: Transvaginal (TV). Transvaginal sonographic images of the pelvis were acquired. Date of LMP: 09/11/2020 EXAM MEASUREMENTS: Uterus: 7.3 x 4.0 x 4.6 cm Endometrial Stripe: 1.0 cm Right Ovary: 3.5 x 1.8 x 1.6 cm Left Ovary: 3.6 x 2.0 x 2.8 cm 1. Uterus: Retroverted wnl 2. Endometrium: wnl 3. Right Ovary: wnl 4. Left Ovary: Probable resolving hemorrhagic cyst= 1.9 x 1.3 x 1.9 cm Spectral, color and waveform doppler imaging shows good arterial and venous flow within the ovaries ; there is no evidence for ovarian torsion. 5. Bilateral Adnexa: Small amount of free fluid right adnexa 6. Posterior cul-de-sac: wnl IMPRESSION: 1.9 cm partially collapsed left ovarian cyst, may represent a resolving hemorrhagic cyst in the appro priate clinical setting. Small free fluid. Otherwise no acute abnormality of the pelvic ultrasound.
[2020-09-27] MEDS ORDERED: ACET/COD 300 MG/30 MG STARTER PACK 6 TAB BTL PO STA (21:52)
[2020-09-27 22:35] VITALS: BP 101/77; PULSE 73; RESP 16; TEMP 98
== END 2020-09-27 22:37 | disposition home or self-care (01) ==
LOC: EC 18:51
DX: N83.202 Unspecified ovarian cyst, left side (principal); F41.9 Anxiety disorder, unspecified; F32.9 Major depressive disorder, single episode, unspecified; F17.200 Nicotine dependence, unspecified, uncomplicated; F12.90 Cannabis use, unspecified, uncomplicated; Z98.51 Tubal ligation status
CPT/HCPCS: 99284; 96374; 96375 ×2; 96376; 96361; 36415; 80053; 83690; 85025; 81003; 81025; 93975; 76830; J2405; J1885; J1170

== ENCOUNTER 2020-10-31 15:49 | Emergency (ER) | payer OTHER ==
[2020-10-31 16:14] VITALS: RESP 18; TEMP 98.2
[2020-10-31] MEDS ORDERED: KETOROLAC 15 MG/ML 1 ML VIAL IVP STA (17:00)
[2020-10-31] MEDS ORDERED: MORPHINE SULFATE 4 MG/ML SYRINGE IV STA (17:00)
[2020-10-31] MEDS ORDERED: ASPIRIN 81 MG PO STA (17:00)
[2020-10-31 17:39] LABS: Basophils % (A) 0 %; Eosinophils # (A) 0.1 k/uL (0-0.7); Eosinophils % (A) 1 %; HCT 37.9 % (34.0-46.0); HGB 11.9 gm/dL (11.4-16.0); Hypochromasia Slight; Lymphocytes # (A) 1.4 k/uL (1.0-4.8); Lymphocytes % (A) 16 %; MCH 20.5 pg (25.0-35.0); MCHC 31.2 g/dL (31.0-37.0); MCV 65.6 fL (80.0-100.0); Mean Platelet Volume 7.1; Microcytosis Marked; Monocytes # (A) 0.4 k/uL (0-1.0); Monocytes % (A) 5 %; Neutrophils # (A) 6.8 k/uL (1.3-7.7); Neutrophils % (A) 77 %; Platelet Count 220 k/uL (150-450); RBC 5.78 m/uL (3.80-5.40); WBC 8.9 k/uL (3.8-10.6)
[2020-10-31 17:50] LABS: Appearance,Urine Clear (Clear); Bilirubin,Urine Negative (Negative); Blood,Urine Negative (Negative); Color,Urine Yellow; Glucose,Urine (UA) Negative (Negative); Hyaline Casts,Urine 2 /lpf (0-2); Ketones,Urine Negative (Negative); Leukocyte Esterase,Urine Trace (Negative); Mucus,Urine Many /hpf; Nitrite,Urine Negative (Negative); Protein,Urine 1+ (Negative); RBC,Urine 1 /hpf (0-5); Specific Gravity,Urine 1.016 (1.001-1.035); Squamous Epithelial Cell,Urine 2 /hpf (0-4); WBC,Urine 5 /hpf (0-5)
[2020-10-31 17:52] LABS: ALT 10 U/L (4-34); AST 25 U/L (14-36); African American GFR (CKD) >90 (>60 ml/min/1.73 sqM); Albumin 4.5 g/dL (3.5-5.0); Alkaline Phosphatase 51 U/L (38-126); Anion Gap 7 mmol/L; Blood Urea Nitrogen 5 mg/dL (7-17); Calcium 9.3 mg/dL (8.4-10.2); Carbon Dioxide 21 mmol/L (22-30); Chloride 109 mmol/L (98-107); Glucose 94 mg/dL (74-99); Magnesium 2.1 mg/dL (1.6-2.3); Non-African American GFR(CKD) >90 (>60 ml/min/1.73 sqM); Potassium 4.5 mmol/L (3.5-5.1); Sodium 137 mmol/L (137-145); Total Protein 7.2 g/dL (6.3-8.2)
[2020-10-31 17:55] LABS: Partial Thromboplastin Time 24.7 sec (22.0-30.0); Prothrombin Time 10.9 sec (9.0-12.0)
--- NOTE | 2020-10-31 18:17 | XR ---
EXAMINATION TYPE: XR chest 2V DATE OF EXAM: 10/31/2020 COMPARISON: NONE HISTORY: Chest pain. TECHNIQUE: Frontal and lateral views of the chest are obtained. FINDINGS: Apical scarring. There is no focal air space opacity, pleural effusion, or pneumothorax se en. The cardiac silhouette size is within normal limits. The osseous structures are intact. IMPRESSION: No acute cardiopulmonary process.
--- NOTE | 2020-10-31 19:45 | US ---
EXAMINATION TYPE: US renals and bladder DATE OF EXAM: 10/31/2020 COMPARISON: 2019 CLINICAL HISTORY: abd pain, concern for nephrolithiasis. Back pain x couple days EXAM MEASUREMENTS: Right Kidney: 9.9 x 3.4 x 4.6 cm Left Kidney: 10.6 x 4.4 x 4.6 cm Right Kidney: No hydronephrosis or masses seen Left Kidney: No hydronephrosis or masses seen, limited by rib shadowing and overlying bowel gas Bladder: not fully distended There is no evidence for hydronephrosis at this point in time. No nephrolithiasis is seen. No violet s are identified. The urinary bladder is anechoic. IMPRESSION: Limited assessment of the left kidney due to overlying bowel gas otherwise no sonographic evidence of hydronephrosis or nephrolithiasis.
--- NOTE | 2020-10-31 19:57 | US ---
EXAMINATION TYPE: US transvaginal DATE OF EXAM: 10/31/2020 COMPARISON: [facility] 2020 CLINICAL HISTORY: Abd pain, concern for torsion ovarian. Back pain x couple days, 3, para 3, history of tubal ligation and ovarian cysts removed TECHNIQUE: Transvaginal ER exam. Date of LMP: 10/11/2020 EXAM MEASUREMENTS: Uterus: 6.7 x 4.2 x 5.0 cm Endometrial Stripe: 1.2 cm Right Ovary: 4.4 x 3.0 x 3.9 cm Left Ovary: 2.8 x 1.7 x 1.8 cm 1. Uterus: retroverted 2. Endometrium: wnl 3. Right Ovary: 3.2 x 2.6 x 3.4cm cyst with internal septations, 1.8 x 1.4 x 1.4cm probable resolvin g hemorrhagic cyst 4. Left Ovary: multiple follicles Spectral, color and waveform doppler imaging shows good arterial and venous flow within the ovaries ; there is no evidence for ovarian torsion. 5. Bilateral Adnexa: free fluid 6. Posterior cul-de-sac: free fluid IMPRESSION: 1. Retroverted uterus with homogenous myometrium and normal endometrial thickness. 2. Follicular changes of the left ovary. 3. Complex cysts of the right ovary likely represent a hemorrhagic cyst and corpus luteum. 4. Spectral, color and waveform doppler imaging shows good arterial and venous flow within the ovari es; there is no evidence for ovarian torsion. 5. Transvaginal imaging confirms the above findings. 6. Small free fluid in the bilateral adnexa and cul-de-sac.
--- NOTE | 2020-10-31 20:37 | ED ---
General Adult HPI - General Chief complaint: Chest Pain Stated complaint: chest & flank pain Time Seen by Provider: 10/31/20 16:34 Source: patient, EMS, RN notes reviewed, old records reviewed Mode of arrival: EMS Limitations: no limitations - History of Present Illness Initial comments: I evaluated the patient when she was placed in a room. Patient is a 40-year-old female with past medical history remarkable for ovarian cysts as well as anxiety presents emergency Department complaining of chest pain as well as lower back pain. She has a history of UTIs and is concerned she may have a UTI. States that pain is worse with movement. She states that should the chest pain earlier and is since resolved. She also feels short of breath intermittently. She states she does have anxiety and these too mimicker anxious symptoms, however she is concerned for possible cardiac etiology for his her symptoms at this time. She states she currently does not have a chest pain. She prescription the back pain as an achy sore sensation. She describes some achy lower abdominal pain as well that comes and goes and is usually present when she has her cysts causing pain. She is a history of polysubstance abuse. She states she felt nauseous earlier but that has since resolved. She otherwise has no acute complaints at this time. She denies any history of kidney stones, hematuria. Denies any vaginal bleeding or discharge. She otherwise has no acute point at this time. She states she is not . She denies any fevers, chills, sick contacts. She states all of her symptoms began yesterday. She has no history of blood clots.Patient is no concern for STDs her symptoms at this time. She denies any vaginal discharge or bleeding. - Related Data Home Medications Medication Instructions Recorded Confirmed Ibuprofen [Motrin] 800 mg PO Q8H PRN 12/19/19 12/19/19 Previous Rx's Medication Instructions Recorded Azithromycin [Zithromax] 2 tablet PO ONCE 1 Days #2 tab 12/19/19 Cephalexin [Keflex] 500 mg PO Q6HR #40 cap 12/19/19 Allergies Allergy/AdvReac Type Severity Reaction Status Date / Time No Known Allergies Allergy Verified 09/27/20 18:57 Review of Systems ROS Statement: Those systems with pertinent positive or pertinent negative responses have been documented in the HPI. Review of Systems: CONST: Denies fever EYES: Denies blurry vision ENT: Denies nasal congestion C/V: Endorses chest pain RESP: Endorses shortness of breath GI: Endorses abdominal pain : Denies dysuria SKIN: Denies rash. MSK: Denies joint pain. NEURO: Denies headache ROS Other: All systems not noted in ROS Statement are negative. Past Medical History Past Medical History: No Reported History Additional Past Medical History / Comment(s): migraine, kidney infection, ovarian cysts. History of Any Multi-Drug Resistant Organisms: ESBL Date of last positivie culture/infection: 07/28/16 MDRO Source:: ESBL URINE Past Surgical History: Orthopedic Surgery, Tubal Ligation Additional Past Surgical History / Comment(s): ovarian cyst, left knee surgery, Past Anesthesia/Blood Transfusion Reactions: No Reported Reaction Past Psychological History: Anxiety, Depression Smoking Status: Current every day smoker Past Alcohol Use History: Occasional Past Drug Use History: Cocaine, Marijuana, Methamphetamine - Past Family History Mother Family Medical History: No Reported History Father Family Medical History: No Reported History General Exam - General Exam Comments Initial Comments: General: Appears in no acute distress. HEAD: Normal with no signs of head trauma. EYES: PERRLA, EOMI, conjunctiva normal, no discharge. ENT: Hearing grossly intact, normal oropharynx. RESPIRATORY: Clear breath sounds bilaterally. No wheezes, rales, or rhonchi. C/V: She is tachycardic with a regular rhythm. S1 and S2 auscultated. No peripheral edema. Peripheral pulses are 2+ and intact throughout. ABD: Abdomen is soft, nondistended. Patient is very mildly tender over the left adnexa. There is no CVA tenderness to percussion. No guarding. No peritoneal signs and no rebound tenderness. EXT: Normal range of motion, no obvious deformity SKIN: No rashes or lesions observed on exposed skin. NEURO: Alert and oriented 4. No focal deficits. Limitations: no limitations Course Vital Signs 10/31/20 10/31/20 10/31/20 16:03 16:13 16:35 Temperature 98.2 F Pulse Rate 110 H 80 Pulse Rate [ 110 H Game Author ] Respiratory 18 18 Rate Blood Pressure 114/89 114/89 O2 Sat by Pulse 100 100 Oximetry 10/31/20 10/31/20 18:13 21:00 Temperature Pulse Rate 82 77 Pulse Rate [ Game Author ] Respiratory 18 18 Rate Blood Pressure 110/80 109/76 O2 Sat by Pulse 99 99 Oximetry Medical Decision Making - Medical Decision Making Based on the patient's presentation and physical exam, I'm concerned for multiple possibilities for her multiple complaints. She is been having one day history of chest discomfort, shortness of breath that is intermittent and worse when she is stressed out. This could be related to her chronic anxiety but I would like to rule out the possibility of cardiac etiology at this time as well as a pulmonary embolism. Patient's Wells score for PE is low and therefore we will obtain a screening d-dimer. We also obtain a troponin and abdominal laboratory studies and urinalysis.. She test will be obtained. I recommended that we obtain ultrasounds of the pelvis 12 possible ovarian torsion and she did discuss a severe episode of abdominal pain earlier which may nausea worse. That self resolved. She was in agreement. We will also obtain on an ultrasound of the kidneys as well as bladder to assess for signs of nephrolithiasis. Patient will be given analgesia medications will she is here in the department as well as aspirin. She was in agreement this plan. Patient's EKG shows a normal sinus rhythm with no signs of acute ischemia. Patient's lavatory studies are remarkable for a negative d-dimer and negative troponin. Patient's urinalysis shows no signs of acute infection sick contaminated catch. She is Covid negative. Patient is not . Patient's ultrasounds were remarkable for no nephrolithiasis or hydronephrosis, transvagin al ultrasound did not reveal any signs of ovarian torsion but did reveal a complex cyst of the right ovary and follicular changes of the left ovary. Patient's chest x-ray shows no acute cardiopulmonary process. On reevaluation, patient's heart rate is improved. Her symptoms are improved. We discussed that she is likely expressing pain from her cysts and I recommended that she follow up with [employer]. She was in agreement this plan. She is requesting to leave and I think is reasonable at this time. Heart scores low at 0. Overall with contact information for [employer]. She has pain medications at home for pain. I instructed the patient to follow up with their PCP in the next 3 days. I provided contact information for follow up with Dr Richards of [facility]. I explained that the patient should return to the emergency department if they experience any worsening symptoms. Strict return precautions were discussed with the patient. The patient expressed understanding of these instructions. I answered all questions that the patient had. The patient was discharged home in good condition with their prescriptions and follow up information. - Lab Data Result diagrams: 10/31/20 17:17 10/31/20 17:17 Lab Results 10/31/20 10/31/20 10/31/20 Range/Units 17:17 17:17 17:17 WBC 8.9 (3.8-10.6) k/uL RBC 5.78 H (3.80-5.40) m/uL Hgb 11.9 (11.4-16.0) gm/dL Hct 37.9 (34.0-46.0) % MCV 65.6 L (80.0-100.0) fL MCH 20.5 L (25.0-35.0) pg MCHC 31.2 (31.0-37.0) g/dL RDW 15.0 (11.5-15.5) % Plt Count 220 (150-450) k/uL MPV 7.1 Neutrophils % 77 % Lymphocytes % 16 % Monocytes % 5 % Eosinophils % 1 % Basophils % 0 % Neutrophils # 6.8 (1.3-7.7) k/uL Lymphocytes # 1.4 (1.0-4.8) k/uL Monocytes # 0.4 (0-1.0) k/uL Eosinophils # 0.1 (0-0.7) k/uL Basophils # 0.0 (0-0.2) k/uL Hypochromasia Slight Microcytosis Marked PT 10.9 (9.0-12.0) sec INR 1.0 (<1.2) APTT 24.7 (22.0-30.0) sec D-Dimer <0.17 (<0.60) mg/L FEU Sodium (137-145) mmol/L Potassium (3.5-5.1) mmol/L Chloride (98-107) mmol/L Carbon Dioxide (22-30) mmol/L Anion Gap mmol/L BUN (7-17) mg/dL Creatinine (0.52-1.04) mg/dL Est GFR (CKD-EPI)AfAm (>60 ml/min/1.73 sqM) Est GFR (CKD-EPI)NonAf (>60 ml/min/1.73 sqM) Glucose (74-99) mg/dL Calcium (8.4-10.2) mg/dL Magnesium (1.6-2.3) mg/dL Total Bilirubin (0.2-1.3) mg/dL AST (14-36) U/L ALT (4-34) U/L Alkaline Phosphatase (38-126) U/L Troponin I (0.000-0.034) ng/mL Total Protein (6.3-8.2) g/dL Albumin (3.5-5.0) g/dL Urine Color Yellow Urine Appearance Clear (Clear) Urine pH 6.0 (5.0-8.0) Ur Specific [place] 1.016 (1.001-1.035) Urine Protein 1+ H (Negative) Urine Glucose (UA) Negative (Negative) Urine Ketones Negative (Negative) Urine Blood Negative (Negative) Urine Nitrite Negative (Negative) Urine Bilirubin Negative (Negative) Urine Urobilinogen 2.0 (<2.0) mg/dL Ur Leukocyte Esterase Trace H (Negative) Urine RBC 1 (0-5) /hpf Urine WBC 5 (0-5) /hpf Ur Squamous Epith Cells 2 (0-4) /hpf Hyaline Casts 2 (0-2) /lpf Urine Mucus Many H (None) /hpf Urine HCG, Qual (Not Detectd) Coronavirus (PCR) (Not Detectd) 10/31/20 10/31/20 10/31/20 Range/Units 17:17 17:17 17:17 WBC (3.8-10.6) k/uL RBC (3.80-5.40) m/uL Hgb (11.4-16.0) gm/dL Hct (34.0-46.0) % MCV (80.0-100.0) fL MCH (25.0-35.0) pg MCHC (31.0-37.0) g/dL RDW (11.5-15.5) % Plt Count (150-450) k/uL MPV Neutrophils % % Lymphocytes % % Monocytes % % Eosinophils % % Basophils % % Neutrophils # (1.3-7.7) k/uL Lymphocytes # (1.0-4.8) k/uL Monocytes # (0-1.0) k/uL Eosinophils # (0-0.7) k/uL Basophils # (0-0.2) k/uL Hypochromasia Microcytosis PT (9.0-12.0) sec INR (<1.2) APTT (22.0-30.0) sec D-Dimer (<0.60) mg/L FEU Sodium 137 (137-145) mmol/L Potassium 4.5 (3.5-5.1) mmol/L Chloride 109 H (98-107) mmol/L Carbon Dioxide 21 L (22-30) mmol/L Anion Gap 7 mmol/L BUN 5 L (7-17) mg/dL Creatinine 0.53 (0.52-1.04) mg/dL Est GFR (CKD-EPI)AfAm >90 (>60 ml/min/1.73 sqM) Est GFR (CKD-EPI)NonAf >90 (>60 ml/min/1.73 sqM) Glucose 94 (74-99) mg/dL Calcium 9.3 (8.4-10.2) mg/dL Magnesium 2.1 (1.6-2.3) mg/dL Total Bilirubin 1.0 (0.2-1.3) mg/dL AST 25 (14-36) U/L ALT 10 (4-34) U/L Alkaline Phosphatase 51 (38-126) U/L Troponin I <0.012 (0.000-0.034) ng/mL Total Protein 7.2 (6.3-8.2) g/dL Albumin 4.5 (3.5-5.0) g/dL Urine Color Urine Appearance (Clear) Urine pH (5.0-8.0) Ur Specific [place] (1.001-1.035) Urine Protein (Negative) Urine Glucose (UA) (Negative) Urine Ketones (Negative) Urine Blood (Negative) Urine Nitrite (Negative) Urine Bilirubin (Negative) Urine Urobilinogen (<2.0) mg/dL Ur Leukocyte Esterase (Negative) Urine RBC (0-5) /hpf Urine WBC (0-5) /hpf Ur Squamous Epith Cells (0-4) /hpf Hyaline Casts (0-2) /lpf Urine Mucus (None) /hpf Urine HCG, Qual Not Detected (Not Detectd) Coronavirus (PCR) (Not Detectd) 09/24/21 Range/Units 17:17 WBC (3.8-10.6) k/uL RBC (3.80-5.40) m/uL Hgb (11.4-16.0) gm/dL Hct (34.0-46.0) % MCV (80.0-100.0) fL MCH (25.0-35.0) pg MCHC (31.0-37.0) g/dL RDW (11.5-15.5) % Plt Count (150-450) k/uL MPV Neutrophils % % Lymphocytes % % Monocytes % % Eosinophils % % Basophils % % Neutrophils # (1.3-7.7) k/uL Lymphocytes # (1.0-4.8) k/uL Monocytes # (0-1.0) k/uL Eosinophils # (0-0.7) k/uL Basophils # (0-0.2) k/uL Hypochromasia Microcytosis PT (9.0-12.0) sec INR (<1.2) APTT (22.0-30.0) sec D-Dimer (<0.60) mg/L FEU Sodium (137-145) mmol/L Potassium (3.5-5.1) mmol/L Chloride (98-107) mmol/L Carbon Dioxide (22-30) mmol/L Anion Gap mmol/L BUN (7-17) mg/dL Creatinine (0.52-1.04) mg/dL Est GFR (CKD-EPI)AfAm (>60 ml/min/1.73 sqM) Est GFR (CKD-EPI)NonAf (>60 ml/min/1.73 sqM) Glucose (74-99) mg/dL Calcium (8.4-10.2) mg/dL Magnesium (1.6-2.3) mg/dL Total Bilirubin (0.2-1.3) mg/dL AST (14-36) U/L ALT (4-34) U/L Alkaline Phosphatase (38-126) U/L Troponin I (0.000-0.034) ng/mL Total Protein (6.3-8.2) g/dL Albumin (3.5-5.0) g/dL Urine Color Urine Appearance (Clear) Urine pH (5.0-8.0) Ur Specific [place] (1.001-1.035) Urine Protein (Negative) Urine Glucose (UA) (Negative) Urine Ketones (Negative) Urine Blood (Negative) Urine Nitrite (Negative) Urine Bilirubin (Negative) Urine Urobilinogen (<2.0) mg/dL Ur Leukocyte Esterase (Negative) Urine RBC (0-5) /hpf Urine WBC (0-5) /hpf Ur Squamous Epith Cells (0-4) /hpf Hyaline Casts (0-2) /lpf Urine Mucus (None) /hpf Urine HCG, Qual (Not Detectd) Coronavirus (PCR) Not Detected (Not Detectd) - EKG Data -: EKG Interpreted by Me EKG Comments: 12-lead Electrocardiogram Interpretation Note EKG was reviewed and interpreted by myself. 12-lead ECG performed at 1711 is interpreted by me as revealing normal sinus rhythm at a rate of 70 beats per minute. [place] is normal. MO Intervals 134 ms, QRS duration 76 ms, QTc is 403 ms. There were no ST or T wave abnormalities to suggest myocardial ischemia or injury. R wave progression across the precordium was satisfactory. By my interpretation this EKG is non-diagnostic for acute ischemia. Disposition Clinical Impression: Abdominal pain, Anxiety, Ovarian cyst, Chest pain of unknown etiology Disposition: HOME SELF-CARE Condition: Good Instructions (If sedation given, give patient instructions): Ovarian Cyst (ED), Abdominal Pain (ED) Is patient prescribed a controlled substance at d/c from ED?: No Referrals: Amilcar Griffin MD [Primary Care Provider] - 1-2 days Nara Richards DO [Doctor of Osteopathic Medicine] - 1-2 days
[2020-10-31 21:02] VITALS: BP 109/76; PULSE 77
== END 2020-10-31 21:04 | disposition home or self-care (01) ==
LOC: EC 15:49
DX: R07.9 Chest pain, unspecified (principal); N83.201 Unspecified ovarian cyst, right side; F41.9 Anxiety disorder, unspecified; F32.9 Major depressive disorder, single episode, unspecified; F17.200 Nicotine dependence, unspecified, uncomplicated; F12.90 Cannabis use, unspecified, uncomplicated; F19.11 Other psychoactive substance abuse, in remission; Z87.440 Personal history of urinary (tract) infections; Z98.51 Tubal ligation status
CPT/HCPCS: 99285; 96374; 36415; 93005; 85379; 80053; 83735; 84484; 85025; 85610; 85730; 81001; 81025; 87635; 71046; 93975; 76830; 76770; J2270

== ENCOUNTER 2021-02-22 15:32 | Emergency (ER) | payer OTHER ==
[2021-02-22 16:17] VITALS: BP 114/74; PULSE 117; RESP 18; TEMP 98.2
[2021-02-22] MEDS ORDERED: DIPH,PERTUS(ACELL)TETVAC-LF 0.5 ML VIAL IM ONE (17:50)
[2021-02-22] MEDS ORDERED: LIDOCAINE/EPINEPHR/TETRACAINE 5 ML BOTTLE TOPICAL ONE (17:50)
[2021-02-22] MEDS ORDERED: traMADol 50 MG STARTER PACK 3 TAB BTL PO STA (17:50)
--- NOTE | 2021-02-22 18:08 | ED ---
Wound/Laceration HPI - General Chief Complaint: Wound/Laceration Stated Complaint: Fall-Head injury Time Seen by Provider: 02/22/21 17:31 Source: patient Mode of arrival: wheelchair Limitations: no limitations - History of Present Illness Initial Comments: 41-year-old presents for evaluation of head injury. Patient states just prior to arrival she slipped and fell in the driveway. States she hit her head on the foot of a ladder that was laying on the ground. This caused laceration to the scalp. Denies loss of consciousness. States she does currently have a headache and feels "woozy". She denies any neck pain. She is reporting left lower back pain. Denies radiation of the pain down her legs. Denies numbness or tingling to the lower extremities. Denies saddle anesthesia or loss of bowel or bladder control. She denies taking anything for pain. She believes her last tetanus vaccine was 6-7 years ago. She denies any neck pain or arm pain. She is able to ambulate without difficulty. Denies chance of . - Related Data Home Medications Medication Instructions Recorded Confirmed Ibuprofen [Motrin] 800 mg PO Q8H PRN 12/19/19 12/19/19 Previous Rx's Medication Instructions Recorded Azithromycin [Zithromax] 2 tablet PO ONCE 1 Days #2 tab 12/19/19 Cephalexin [Keflex] 500 mg PO Q6HR #40 cap 12/19/19 Allergies Allergy/AdvReac Type Severity Reaction Status Date / Time acetaminophen AdvReac Itching Verified 02/22/21 16:17 [From Tylenol-Codeine #3] codeine AdvReac Itching Verified 02/22/21 16:17 [From Tylenol-Codeine #3] Review of Systems ROS Statement: Those systems with pertinent positive or pertinent negative responses have been documented in the HPI. ROS Other: All systems not noted in ROS Statement are negative. Past Medical History Past Medical History: No Reported History Additional Past Medical History / Comment(s): migraine, kidney infection, ovarian cysts. History of Any Multi-Drug Resistant Organisms: ESBL Date of last positivie culture/infection: 07/28/16 MDRO Source:: ESBL URINE Past Surgical History: Orthopedic Surgery, Tubal Ligation Additional Past Surgical History / Comment(s): ovarian cyst, left knee surgery, Past Anesthesia/Blood Transfusion Reactions: No Reported Reaction Past Psychological History: Anxiety, Depression Smoking Status: Current every day smoker Past Alcohol Use History: Occasional Past Drug Use History: Cocaine, Marijuana, Methamphetamine - Past Family History Mother Family Medical History: No Reported History Father Family Medical History: No Reported History General Exam Limitations: no limitations General appearance: alert, in no apparent distress, other (This is a well- developed, well-nourished adult female in no acute distress.) Head exam: Present: other (There is 6 cm laceration noted to the left posterior parietal scalp. No active bleeding.) Eye exam: Present: normal appearance, PERRL, EOMI. Absent: scleral icterus, conjunctival injection, nystagmus, periorbital swelling ENT exam: Present: normal exam, mucous membranes moist Neck exam: Present: normal inspection, full ROM, other (Nontender, no step-off, no deformity to firm midline palpation of the posterior cervical spine. Full range of motion without pain or limitation.). Absent: tenderness, meningismus, lymphadenopathy Respiratory exam: Present: normal lung sounds bilaterally. Absent: respiratory distress, wheezes, rales, rhonchi, stridor Cardiovascular Exam: Present: normal rhythm, tachycardia, normal heart sounds. Absent: systolic murmur, diastolic murmur, rubs, gallop, clicks Extremities exam: Present: normal inspection, full ROM, normal capillary refill. Absent: tenderness, pedal edema, joint swelling, calf tenderness Back exam: Present: normal inspection, vertebral tenderness (Lumbosacral tenderness), other (No bony step-off or deformity noted to for midline palpation of the thoracic or lumbar spines.) Neurological exam: Present: alert, oriented X3, CN II-XII intact Expanded Speech: Present: fluid speech Cranial nerves: EOM's Intact: Normal, Nystagmus: Normal Motor strength exam: RUE: 5, LUE: 5, RLE: 5, LLE: 5 Eye Response: (4) open spontaneously Motor Response: (6) obeys commands Verbal Response: (5) oriented [place] Total: 15 Psychiatric exam: Present: normal affect, normal mood Skin exam: Present: warm, dry, intact, normal color. Absent: rash Course Vital Signs 02/22/21 16:13 Temperature 98.2 F Pulse Rate 117 H Respiratory 18 Rate Blood Pressure 114/74 O2 Sat by Pulse 100 Oximetry Procedures - Laceration Laceration #1 Consent Obtained: verbal consent Indication: laceration Site: scalp Size (cm): 4 Description: linear Depth: simple, single layer Pre-repair: irrigated extensively Type of Sutures: other (Andree) Number of Sutures: 5 Patient Tolerated Procedure: well, no complications Medical Decision Making - Medical Decision Making 41-year-old female patient presents to the emergency department today for evaluation of head injury and laceration to the scalp. Physical examination did reveal 4 cm laceration to the scalp. It did appear to be deep. This was cleansed and irrigated, repaired with andree. CT of the brain was negative. She was given tetanus vaccine pain medication. She is educated regarding wound care and signs or symptoms of infection. She is instructed to follow-up with her primary care physician for recheck in 1-2 days. Return parameters discussed in detail. She verbalizes understanding and is discharged in stable condition. My attending is Dr. Carvajal. - Radiology Data Radiology results: report reviewed, image reviewed CT brain without contrast was obtained. Report was reviewed in its entirety. Impression by Dr. Blum shows no acute intracranial hemorrhage, mass effect, or midline shift. Lumbosacral spine is obtained. Report was reviewed in its entirety. Impression by Dr. Blum shows no acute fracture dislocation the lumbar spine. Disposition Clinical Impression: Scalp laceration, Low back strain Disposition: HOME SELF-CARE Condition: Good Instructions (If sedation given, give patient instructions): Laceration (ED), Head Injury (ED), Acute Wound Care (ED), Staple Care (ED) Additional Instructions: Keep wound clean and dry. Cleanse twice daily with warm water and antibacterial soap. You may shampoo your hair. Be careful with combing. Return in 1 week to have andree removed. Follow-up with your primary care physician for recheck in 1-2 days. Return for any new, worsening, or concerning symptoms. Is patient prescribed a controlled substance at d/c from ED?: No Referrals: Amilcar Griffin MD [Primary Care Provider] - 1-2 days Time of Disposition: 19:01
--- NOTE | 2021-02-22 18:51 | CT ---
EXAMINATION TYPE: CT brain wo con DATE OF EXAM: 02/22/2021 COMPARISON: None HISTORY: fall, head LAc on left top of head CT DLP: 997.7 mGycm. Automated Exposure Control for Dose Reduction was Utilized. TECHNIQUE: CT scan of the head is performed without contrast. FINDINGS: There is no acute intracranial hemorrhage, mass effect, or midline shift identified. The ventricles and sulci are within normal limits in size. The globes are intact and the visualized sin uses are clear. IMPRESSION: No acute intracranial hemorrhage, mass effect, or midline shift is seen.
--- NOTE | 2021-02-22 18:54 | XR ---
EXAMINATION TYPE: XR lumbosacral spine min 4V DATE OF EXAM: 02/22/2021 CLINICAL HISTORY: Head laceration. TECHNIQUE: Frontal, lateral, and oblique images of the lumbar spine are obtained. COMPARISON: None FINDINGS: There are 5 lumbar type vertebral bodies identified. The lumbar spine shows satisfactory alignment without evidence of acute fracture or dislocation. Vertebral body heights and disk space he ights are within normal limits. The oblique images appear within normal limits. The overlying soft tissue appears unremarkable. IMPRESSION: No acute fracture or dislocation is seen in the lumbar spine.
== END 2021-02-22 19:32 | disposition home or self-care (01) ==
LOC: EC 15:32
DX: S01.01XA Laceration without foreign body of scalp, initial encounter (principal); S39.012A Strain of muscle, fascia and tendon of lower back, initial encounter; G43.909 Migraine, unspecified, not intractable, without status migrainosus; F12.90 Cannabis use, unspecified, uncomplicated; F41.9 Anxiety disorder, unspecified; F32.A Depression, unspecified; Z23 Encounter for immunization; F17.200 Nicotine dependence, unspecified, uncomplicated; Z72.89 Other problems related to lifestyle; W01.110A Fall on same level from slipping, tripping and stumbling with subsequent striking against sharp glass, initial encounter
CPT/HCPCS: 12032; 70450; 72110; 90471; 90715; 99284

== ENCOUNTER 2021-11-24 21:21 | Emergency (ER) | payer OTHER ==
[2021-11-24 21:31] VITALS: TEMP 98.2
[2021-11-24 22:12] LABS: Appearance,Urine Clear (Clear); Bilirubin,Urine Negative (Negative); Blood,Urine Negative (Negative); Color,Urine Yellow; Glucose,Urine (UA) Negative (Negative); Ketones,Urine Negative (Negative); Leukocyte Esterase,Urine Moderate (Negative); Mucus,Urine Occasional /hpf; Nitrite,Urine Negative (Negative); PH, Urine 5.5 (5.0-8.0); Protein,Urine Negative (Negative); RBC,Urine 3 /hpf (0-5); Specific Gravity,Urine 1.022 (1.001-1.035); Squamous Epithelial Cell,Urine 4 /hpf (0-4); Urobilinogen,Urine <2.0 mg/dL (<2.0)
[2021-11-24] MEDS ORDERED: SODIUM CHLORIDE 0.9% 1,000 ML IV STA (23:34)
[2021-11-24] MEDS ORDERED: MORPHINE SULFATE 4 MG/ML SYRINGE IV STA (23:34)
[2021-11-24] MEDS ORDERED: ONDANSETRON 4 MG/2 ML VIAL IVP STA (23:34)
[2021-11-25 00:14] LABS: Basophils # (A) 0.1 k/uL (0-0.2); Basophils % (A) 1 %; Eosinophils # (A) 0.4 k/uL (0-0.7); Eosinophils % (A) 4 %; HCT 40.9 % (34.0-46.0); HGB 12.8 gm/dL (11.4-16.0); Hypochromasia Moderate; Lymphocytes # (A) 3.5 k/uL (1.0-4.8); Lymphocytes % (A) 29 %; MCH 20.8 pg (25.0-35.0); MCHC 31.3 g/dL (31.0-37.0); MCV 66.5 fL (80.0-100.0); Mean Platelet Volume 7.3; Microcytosis Marked; Monocytes # (A) 0.6 k/uL (0-1.0); Monocytes % (A) 5 %; Neutrophils # (A) 7.2 k/uL (1.3-7.7); Neutrophils % (A) 60 %; Platelet Count 234 k/uL (150-450); RBC 6.15 m/uL (3.80-5.40); RDW 14.6 % (11.5-15.5); WBC 12.1 k/uL (3.8-10.6)
[2021-11-25 00:23] LABS: ALT 20 U/L (4-34); AST 25 U/L (14-36); African American GFR (CKD) >90 (>60 ml/min/1.73 sqM); Albumin 5.1 g/dL (3.5-5.0); Alkaline Phosphatase 62 U/L (38-126); Amylase 154 U/L (30-110); Anion Gap 14 mmol/L; Blood Urea Nitrogen 12 mg/dL (7-17); Calcium 9.8 mg/dL (8.4-10.2); Carbon Dioxide 24 mmol/L (22-30); Chloride 100 mmol/L (98-107); Glucose 101 mg/dL (74-99); INR 0.9 (<1.2); Lipase 401 U/L (23-300); Non-African American GFR(CKD) >90 (>60 ml/min/1.73 sqM); Partial Thromboplastin Time 26.4 sec (22.0-30.0); Potassium 4.2 mmol/L (3.5-5.1); Prothrombin Time 10.1 sec (9.0-12.0); Sodium 138 mmol/L (137-145); Total Bilirubin 0.9 mg/dL (0.2-1.3); Total Protein 7.8 g/dL (6.3-8.2)
[2021-11-25 00:34] LABS: HCG,Qualitative Serum Not Detected
--- NOTE | 2021-11-25 01:44 | US ---
EXAMINATION TYPE: US kidneys/renal and bladder DATE OF EXAM: 11/25/2021 COMPARISON: NONE CLINICAL HISTORY: eval for stones. rt flank pain, h/o stones 20 years ago, no hematuria EXAM MEASUREMENTS: Right Kidney: 11.2 x 5.3 x 4.0 cm Left Kidney: 11.1 x 4.3 x 4.2 cm Right Kidney: No hydronephrosis or masses seen Left Kidney: No hydronephrosis or masses seen Bladder: not distended IMPRESSION: No evidence of renal mass or obstruction. Urinary bladder is not evaluated.
--- NOTE | 2021-11-25 01:47 | US ---
EXAMINATION TYPE: US transvaginal DATE OF EXAM: 11/25/2021 COMPARISON: NONE CLINICAL HISTORY: eval for torsion. rt flank pain, left pelvic pain, A1, tubal, h/o ovarian cysts TECHNIQUE: TV. Transvaginal sonographic images Date of LMP: 11/06/2021 EXAM MEASUREMENTS: Uterus: 7.6 x 5.9 x 3.9 cm Endometrial Stripe: 1.3 cm Right Ovary: 2.4 x 2.0 x 2.5 cm Left Ovary: 3.3 x 3.1 x 3.0 cm 1. Uterus: Retroverted wnl 2. Endometrium: wnl 3. Right Ovary: 1.3 x 1.3 x 1.0cm complex lesion 4. Left Ovary: 2.3 x 2.6 x 2.3cm probable hemorraghic cyst Spectral, color and waveform doppler imaging shows good arterial and venous flow within the ovaries ; there is no evidence for ovarian torsion. 5. Bilateral Adnexa: mild free fluid adjacent to right ovary 6. Posterior cul-de-sac: wnl IMPRESSION: Normal uterus and endometrium. Complex cyst on the left ovary that is likely a hemorrhagic cyst. No evidence of ovarian torsion. Complex small cyst on the right ovary.
--- NOTE | 2021-11-25 01:48 | XR ---
EXAMINATION TYPE: XR KUB DATE OF EXAM: 11/25/2021 COMPARISON: 12/19/2019 HISTORY: Abdominal pain TECHNIQUE: 2 views upright FINDINGS: There is no sign of intestinal obstruction or pneumoperitoneum. Fecal pattern is normal. No pathologic calcification over the kidneys. Bony structures are intact. Lung bases are clear. IMPRESSION: Nonacute abdomen. No change.
--- NOTE | 2021-11-25 01:50 | ED ---
General Adult HPI - General Chief complaint: Back Pain/Injury Stated complaint: Lower back and ABD pain Time Seen by Provider: 11/24/21 23:34 Source: patient, RN notes reviewed, old records reviewed Mode of arrival: wheelchair Limitations: no limitations - History of Present Illness Initial comments: Patient is a 41-year-old female presenting to the emergency department complaining of nonspecific abdominal pain. States it started earlier today. Describes his bilateral flank pain as well as left lower quadrant pain, as well as epigastric pain. It causes some nausea. Denies any diarrhea. Denies any sick contacts. Denies any chest pain or shortness breath. Denies being . Denies diarrhea. Has no other acute complaints at this time. Does have a history of ovarian cyst. Please the pain has been more or less constant since earlier today. She does have a history of chronic back pain as well. Denies any chest pain, shortness of breath. Denies any fevers or chills. Has no other acute complaints at this time. Presents for further evaluation. Per chart, patient does have a history of polysubstance abuse. - Related Data Home Medications Medication Instructions Recorded Confirmed Ibuprofen [Motrin] 800 mg PO Q8H PRN 12/19/19 12/19/19 Previous Rx's Medication Instructions Recorded Azithromycin [Zithromax] 2 tablet PO ONCE 1 Days #2 tab 12/19/19 Cephalexin [Keflex] 500 mg PO Q6HR #40 cap 12/19/19 Mag Hydrox/Al Hydrox/Simeth 30 ml PO BID PRN #300 ml 11/25/21 [Maalox] Ondansetron Odt [Zofran Odt] 4 mg PO Q8HR PRN 2 Days #6 tab 11/25/21 Allergies Allergy/AdvReac Type Severity Reaction Status Date / Time codeine AdvReac Itching Verified 11/24/21 21:31 [From Tylenol-Codeine #3] Review of Systems ROS Statement: Those systems with pertinent positive or pertinent negative responses have been documented in the HPI. Review of Systems: CONST: Denies fever EYES: Denies blurry vision ENT: Denies nasal congestion C/V: Denies Chest pain RESP: Denies shortness of breath GI: Endorses abdominal pain : Denies dysuria SKIN: Denies rash. MSK: Denies joint pain. NEURO: Denies headache ROS Other: All systems not noted in ROS Statement are negative. Past Medical History Past Medical History: No Reported History Additional Past Medical History / Comment(s): migraine, kidney infection, ovarian cysts. History of Any Multi-Drug Resistant Organisms: ESBL Date of last positivie culture/infection: 07/28/16 MDRO Source:: ESBL URINE Past Surgical History: Orthopedic Surgery, Tubal Ligation Additional Past Surgical History / Comment(s): ovarian cyst, left knee surgery, Past Anesthesia/Blood Transfusion Reactions: No Reported Reaction Past Psychological History: Anxiety, Depression Smoking Status: Current every day smoker Past Alcohol Use History: Occasional Past Drug Use History: Cocaine, Marijuana, Methamphetamine - Past Family History Mother Family Medical History: No Reported History Father Family Medical History: No Reported History General Exam - General Exam Comments Initial Comments: General: Appears in no acute distress. HEAD: Normal with no signs of head trauma. EYES: PERRLA, EOMI, conjunctiva normal, no discharge. ENT: Hearing grossly intact, normal oropharynx. RESPIRATORY: Clear breath sounds bilaterally. No wheezes, rales, or rhonchi. C/V: Regular rate and rhythm. S1 and S2 auscultated, no edema, peripheral pulses 2+ and intact throughout ABD: Abdomen is soft, nondistended. Nonspecific tenderness to palpation. No CVA tenderness to percussion. Appears to have inconsistent flank tenderness to palpation as well as left lower quadrant abdominal pain. No guarding. No peritoneal signs. No rebound tenderness. EXT: Normal range of motion, no obvious deformity SKIN: No rashes or lesions observed on exposed skin. NEURO: Alert and oriented 4. Limitations: no limitations Course Vital Signs 11/24/21 21:29 Temperature 98.2 F Pulse Rate 89 Respiratory 18 Rate Blood Pressure 106/69 O2 Sat by Pulse 98 Oximetry Medical Decision Making - Medical Decision Making Based on the patient's presentation and physical exam, I'm concerned for acute intra-abdominal process for current symptoms. They're history of system upper quadrant abdominal pain, cannot rule out ovarian torsion. We'll obtain a transvaginal ultrasound, as well as renal bladder ultrasound to start in addition to KUB x-ray. Abdominal laboratory studies will be obtained. She'll be sent likely treatment with IV medications and IV fluids. She was in agreement with this plan. Vital signs are within acceptable limits. Patient's O2 sat is remarkable for a mild leukocytosis of 12.1. Patient has slightly elevated lipase of 401 and amylase of 154. Patient is not . Urinalysis is unremarkable. Remainder the labs are within acceptable limits. Lactic acid is within normal limits. Renal bladder ultrasound shows no acute abnormalities.KUB x-ray shows no acute process. Transvaginal ultrasound reveals a complex cyst in the left ovary that is likely hemorrhagic with no signs of ovarian torsion. On reevaluation, patient still complaining of nonspecific abdominal pain and so me mild nausea. She'll be treated with additional medications. We did discuss her workup. I did offer a CT abdomen and pelvis that she is having continued pain as well as slightly elevated pancreatic enzymes. She was in agreement this plan. I expressed it does not appear that she is having ovarian torsion, no signs of urinary stones or obstruction. Patient's CT abdomen and pelvis showed no acute intra-abdominal process. On reevaluation, she is tolerating oral intake. Is feeling improved. Would like to go home. I believe this is reasonable. Discussed strict return precautions. We'll provide her with Zofran and Maalox her home. Patient was in agreement this plan. Diagnosis is abdominal pain of unknown etiology, nausea vomiting, ovarian cysts. Vital signs remained within acceptable limits. I will provide the patient with a prescription for ODT Zofran, Maalox. I instructed the patient to follow up with their PCP in the next 1-3 days. I explained that the patient should return to the emergency department if they experience any worsening symptoms. Strict return precautions were discussed with the patient. The patient expressed understanding of these instructions. I answered all questions that the patient had. The patient was discharged home in good condition with their prescriptions and follow up information. - Lab Data Result diagrams: 11/24/21 23:59 11/24/21 23:59 Lab Results 11/24/21 11/24/21 11/24/21 Range/Units 21:55 23:59 23:59 WBC 12.1 H (3.8-10.6) k/uL RBC 6.15 H (3.80-5.40) m/uL Hgb 12.8 (11.4-16.0) gm/dL Hct 40.9 (34.0-46.0) % MCV 66.5 L (80.0-100.0) fL MCH 20.8 L (25.0-35.0) pg MCHC 31.3 (31.0-37.0) g/dL RDW 14.6 (11.5-15.5) % Plt Count 234 (150-450) k/uL MPV 7.3 Neutrophils % 60 % Lymphocytes % 29 % Monocytes % 5 % Eosinophils % 4 % Basophils % 1 % Neutrophils # 7.2 (1.3-7.7) k/uL Lymphocytes # 3.5 (1.0-4.8) k/uL Monocytes # 0.6 (0-1.0) k/uL Eosinophils # 0.4 (0-0.7) k/uL Basophils # 0.1 (0-0.2) k/uL Hypochromasia Moderate Microcytosis Marked PT 10.1 (9.0-12.0) sec INR 0.9 (<1.2) APTT 26.4 (22.0-30.0) sec Sodium (137-145) mmol/L Potassium (3.5-5.1) mmol/L Chloride (98-107) mmol/L Carbon Dioxide (22-30) mmol/L Anion Gap mmol/L BUN (7-17) mg/dL Creatinine (0.52-1.04) mg/dL Est GFR (CKD-EPI)AfAm (>60 ml/min/1.73 sqM) Est GFR (CKD-EPI)NonAf (>60 ml/min/1.73 sqM) Glucose (74-99) mg/dL Plasma Lactic Acid [place] (0.7-2.0) mmol/L Calcium (8.4-10.2) mg/dL Total Bilirubin (0.2-1.3) mg/dL AST (14-36) U/L ALT (4-34) U/L Alkaline Phosphatase (38-126) U/L Total Protein (6.3-8.2) g/dL Albumin (3.5-5.0) g/dL Amylase (30-110) U/L Lipase (23-300) U/L HCG, Qual Urine Color Yellow Urine Appearance Clear (Clear) Urine pH 5.5 (5.0-8.0) Ur Specific [place] 1.022 (1.001-1.035) Urine Protein Negative (Negative) Urine Glucose (UA) Negative (Negative) Urine Ketones Negative (Negative) Urine Blood Negative (Negative) Urine Nitrite Negative (Negative) Urine Bilirubin Negative (Negative) Urine Urobilinogen <2.0 (<2.0) mg/dL Ur Leukocyte Esterase Moderate H (Negative) Urine RBC 3 (0-5) /hpf Ur Squamous Epith Cells 4 (0-4) /hpf Urine Mucus Occasional H (None) /hpf 11/24/21 11/24/21 Range/Units 23:59 23:59 WBC (3.8-10.6) k/uL RBC (3.80-5.40) m/uL Hgb (11.4-16.0) gm/dL Hct (34.0-46.0) % MCV (80.0-100.0) fL MCH (25.0-35.0) pg MCHC (31.0-37.0) g/dL RDW (11.5-15.5) % Plt Count (150-450) k/uL MPV Neutrophils % % Lymphocytes % % Monocytes % % Eosinophils % % Basophils % % Neutrophils # (1.3-7.7) k/uL Lymphocytes # (1.0-4.8) k/uL Monocytes # (0-1.0) k/uL Eosinophils # (0-0.7) k/uL Basophils # (0-0.2) k/uL Hypochromasia Microcytosis PT (9.0-12.0) sec INR (<1.2) APTT (22.0-30.0) sec Sodium 138 (137-145) mmol/L Potassium 4.2 (3.5-5.1) mmol/L Chloride 100 (98-107) mmol/L Carbon Dioxide 24 (22-30) mmol/L Anion Gap 14 mmol/L BUN 12 (7-17) mg/dL Creatinine 0.62 (0.52-1.04) mg/dL Est GFR (CKD-EPI)AfAm >90 (>60 ml/min/1.73 sqM) Est GFR (CKD-EPI)NonAf >90 (>60 ml/min/1.73 sqM) Glucose 101 H (74-99) mg/dL Plasma Lactic Acid [place] 1.0 (0.7-2.0) mmol/L Calcium 9.8 (8.4-10.2) mg/dL Total Bilirubin 0.9 (0.2-1.3) mg/dL AST 25 (14-36) U/L ALT 20 (4-34) U/L Alkaline Phosphatase 62 (38-126) U/L Total Protein 7.8 (6.3-8.2) g/dL Albumin 5.1 H (3.5-5.0) g/dL Amylase 154 H (30-110) U/L Lipase 401 H (23-300) U/L HCG, Qual Not Detected Urine Color Urine Appearance (Clear) Urine pH (5.0-8.0) Ur Specific [place] (1.001-1.035) Urine Protein (Negative) Urine Glucose (UA) (Negative) Urine Ketones (Negative) Urine Blood (Negative) Urine Nitrite (Negative) Urine Bilirubin (Negative) Urine Urobilinogen (<2.0) mg/dL Ur Leukocyte Esterase (Negative) Urine RBC (0-5) /hpf Ur Squamous Epith Cells (0-4) /hpf Urine Mucus (None) /hpf Disposition Clinical Impression: Abdominal pain of unknown cause, Nausea and vomiting, Ovarian cyst Disposition: HOME SELF-CARE Condition: Good Instructions (If sedation given, give patient instructions): Ovarian Cyst (ED), Abdominal Pain (ED) Prescriptions: Mag Hydrox/Al Hydrox/Simeth [Maalox] 30 ml PO BID PRN #300 ml PRN Reason: Dyspepsia Ondansetron Odt [Zofran Odt] 4 mg PO Q8HR PRN 2 Days #6 tab PRN Reason: Nausea Is patient prescribed a controlled substance at d/c from ED?: No Referrals: Amilcar Griffin MD [Primary Care Provider] - 1-2 days Jody Huber MD [REFERRING] - 1-2 days Time of Disposition: 02:50
[2021-11-25] MEDS ORDERED: METOCLOPRAMIDE 5 MG/ML 2 ML VIAL IVP STA (01:54)
[2021-11-25] MEDS ORDERED: MORPHINE SULFATE 4 MG/ML SYRINGE IVP STA (01:54)
--- NOTE | 2021-11-25 02:43 | CT ---
EXAMINATION TYPE: CT abdomen pelvis w con DATE OF EXAM: 11/25/2021 COMPARISON: None HISTORY: BACK PAIN THAT HURTS MORE THAN NORMAL, H/O OVARIAN CYSTS. pt has had US & XR already. CT DLP: 550.5 mGycm Automated exposure control for dose reduction was used. CONTRAST: Performed with IV Contrast, patient injected with 100 mL of Isovue 300. Images obtained from the diaphragm to the floor the pelvis with the IV contrast. The lung bases are clear. No pleural effusion. Heart size is normal. No pericardial effusion. Liver spleen stomach pancreas and gallbladder appear intact. The bowel gas or not dilated. There is no adrenal mass. Kidneys have normal size and contour. No hydronephrosis. Ureters are not di lated. No retroperitoneal adenopathy. The bladder is almost empty. Uterus is retroverted. There is small amount of low-density fluid in the pelvis. No pelvic mass. Appendix is posterior and lateral and appears normal. Appendix along the iliac vessels. There is no mesenteric edema. No ascites or free air. No sign of a bowel obstruction. Delayed images show normal renal excretion. The lumbar vertebrae have normal alignment. Posterior elements are intact. No compression fracture. T he bony pelvis is intact. The hip joints appear normal. IMPRESSION: There is small amount of low-density fluid in the pelvis that could be physiologic. Otherwise negativ e CT scan of the abdomen and pelvis. Normal appendix.
[2021-11-25 03:09] VITALS: BP 133/65; PULSE 74; RESP 15
== END 2021-11-25 03:14 | disposition home or self-care (01) ==
LOC: EC 21:21
DX: R10.9 Unspecified abdominal pain (principal); F32.A Depression, unspecified; F41.9 Anxiety disorder, unspecified; F17.200 Nicotine dependence, unspecified, uncomplicated; Z88.5 Allergy status to narcotic agent; Z79.899 Other long term (current) drug therapy
CPT/HCPCS: 99285; 96374; 96375 ×2; 96376; 96361; 36415; 80053; 82150; 83605; 83690; 85025; 85610; 85730; 81001; 84703; 74018; 93975; 76830; 76770; 74177; J2270; J2765; J2405; Q9967

== ENCOUNTER 2021-11-25 16:54 | Emergency (ER) | payer OTHER ==
[2021-11-25] MEDS ORDERED: ONDANSETRON 4 MG/2 ML VIAL IVP STA (21:20)
[2021-11-25] MEDS ORDERED: SODIUM CHLORIDE 0.9% 1,000 ML IV STA (21:20)
[2021-11-25] MEDS ORDERED: KETOROLAC 15 MG/ML 1 ML VIAL IVP STA (21:20)
[2021-11-25 21:35] LABS: Basophils # (A) 0.1 k/uL (0-0.2); Basophils % (A) 1 %; Eosinophils # (A) 0.4 k/uL (0-0.7); Eosinophils % (A) 4 %; HCT 37.5 % (34.0-46.0); HGB 11.9 gm/dL (11.4-16.0); Hypochromasia Moderate; Lymphocytes # (A) 2.8 k/uL (1.0-4.8); Lymphocytes % (A) 29 %; MCH 21.2 pg (25.0-35.0); MCHC 31.8 g/dL (31.0-37.0); MCV 66.7 fL (80.0-100.0); Mean Platelet Volume 7.6; Microcytosis Marked; Monocytes # (A) 0.4 k/uL (0-1.0); Monocytes % (A) 4 %; Neutrophils # (A) 5.7 k/uL (1.3-7.7); Neutrophils % (A) 60 %; Platelet Count 210 k/uL (150-450); RBC 5.61 m/uL (3.80-5.40); RDW 14.5 % (11.5-15.5); WBC 9.5 k/uL (3.8-10.6)
[2021-11-25 21:44] LABS: ALT 19 U/L (4-34); AST 27 U/L (14-36); African American GFR (CKD) >90 (>60 ml/min/1.73 sqM); Albumin 4.7 g/dL (3.5-5.0); Alkaline Phosphatase 51 U/L (38-126); Anion Gap 13 mmol/L; Blood Urea Nitrogen 9 mg/dL (7-17); Calcium 9.2 mg/dL (8.4-10.2); Carbon Dioxide 22 mmol/L (22-30); Chloride 102 mmol/L (98-107); Glucose 92 mg/dL (74-99); Non-African American GFR(CKD) >90 (>60 ml/min/1.73 sqM); Potassium 4.2 mmol/L (3.5-5.1); Sodium 137 mmol/L (137-145); Total Bilirubin 0.9 mg/dL (0.2-1.3); Total Protein 7.3 g/dL (6.3-8.2)
[2021-11-25 21:50] LABS: Partial Thromboplastin Time 27.8 sec (22.0-30.0); Prothrombin Time 10.5 sec (9.0-12.0)
[2021-11-25] MEDS ORDERED: MORPHINE SULFATE 4 MG/ML SYRINGE IVP STA (22:30)
--- NOTE | 2021-11-25 22:58 | ED ---
Abdominal Pain HPI - General Source: patient Mode of arrival: EMS Limitations: no limitations <Davide Reardon - Last Filed: 11/26/21 00:26> <Madhu Christy - Last Filed: 11/26/21 05:22> - General Chief Complaint: Abdominal Pain Stated Complaint: pubic area pain, back pain Time Seen by Provider: 11/25/21 21:11 - History of Present Illness Initial Comments: Patient is a 41-year-old female presenting with chief complaint of left-sided pelvic pain. Patient was here yesterday for similar complaint, she was diag nosed with ovarian cysts. Patient states that the pain has worsened today. She admits to nausea with no vomiting. Denies any vaginal bleeding or discharge. Denies any dysuria, hematuria, urgency, frequency. HCG here in the ER yesterday was negative. She denies any chest pain, shortness of breath, difficulty breathing, palpitations. (Davide Reardon) - Related Data Home Medications Medication Instructions Recorded Confirmed Ibuprofen [Motrin] 800 mg PO Q8H PRN 12/19/19 12/19/19 Previous Rx's Medication Instructions Recorded Azithromycin [Zithromax] 2 tablet PO ONCE 1 Days #2 tab 12/19/19 Cephalexin [Keflex] 500 mg PO Q6HR #40 cap 12/19/19 Mag Hydrox/Al Hydrox/Simeth 30 ml PO BID PRN #300 ml 11/25/21 [Maalox] Nitrofurantoin Monohyd/M-Cryst 100 mg PO Q12HR 5 Days #10 cap 11/25/21 [Macrobid] Ondansetron Odt [Zofran Odt] 4 mg PO Q8HR PRN 2 Days #6 tab 11/25/21 Allergies Allergy/AdvReac Type Severity Reaction Status Date / Time codeine AdvReac Itching Verified 11/24/21 21:31 [From Tylenol-Codeine #3] Review of Systems ROS Other: All systems not noted in ROS Statement are negative. <Davide Reardon - Last Filed: 11/26/21 00:26> ROS Other: All systems not noted in ROS Statement are negative. <Madhu Christy - Last Filed: 11/26/21 05:22> ROS Statement: Those systems with pertinent positive or pertinent negative responses have been documented in the HPI. Past Medical History Past Medical History: No Reported History Additional Past Medical History / Comment(s): migraine, kidney infection, ovarian cysts. History of Any Multi-Drug Resistant Organisms: ESBL Date of last positivie culture/infection: 07/28/16 MDRO Source:: ESBL URINE Past Surgical History: Orthopedic Surgery, Tubal Ligation Additional Past Surgical History / Comment(s): ovarian cyst, left knee surgery, Past Anesthesia/Blood Transfusion Reactions: No Reported Reaction Past Psychological History: Anxiety, Depression Smoking Status: Current every day smoker Past Alcohol Use History: Occasional Past Drug Use History: Cocaine, Marijuana, Methamphetamine - Past Family History Mother Family Medical History: No Reported History Father Family Medical History: No Reported History <Davide Reardon - Last Filed: 11/26/21 00:26> General Exam Limitations: no limitations General appearance: alert, in no apparent distress Head exam: Present: atraumatic, normocephalic, normal inspection Eye exam: Present: normal appearance, PERRL, EOMI. Absent: scleral icterus, conjunctival injection, periorbital swelling Neck exam: Present: normal inspection Respiratory exam: Present: normal lung sounds bilaterally. Absent: respiratory distress, wheezes, rales, rhonchi, stridor Cardiovascular Exam: Present: regular rate, normal rhythm, normal heart sounds. Absent: systolic murmur, diastolic murmur, rubs, gallop, clicks GI/Abdominal exam: Present: soft, tenderness. Absent: distended, guarding, rebound, rigid Neurological exam: Present: alert, oriented X3, CN II-XII intact Psychiatric exam: Present: normal affect, normal mood Skin exam: Present: warm, dry, intact, normal color. Absent: rash <Davide Reardon - Last Filed: 11/26/21 00:26> Course Vital Signs 11/25/21 11/25/21 17:06 23:55 Temperature 98.2 F 98.9 F Pulse Rate 90 67 Respiratory 16 18 Rate Blood Pressure 127/62 108/62 O2 Sat by Pulse 99 100 Oximetry Medical Decision Making - Lab Data Result diagrams: 11/25/21 21:22 11/25/21 21:22 <Davide Reardon - Last Filed: 11/26/21 00:26> - Lab Data Result diagrams: 11/25/21 21:22 11/25/21 21:22 <Madhu Christy - Last Filed: 11/26/21 05:22> - Medical Decision Making Patient is a 41-year-old female presenting with chief complaint of left sided pelvic pain. Patient was here last night with similar pain, was diagnosed with ovarian cysts. Patient states that today the pain worsened. No bleeding or discharge. Lab work shows no anemia or leukocytosis. Lactic acid is 0.5. HCG is negative. Urine just potential UTI, we'll treat with Macrobid and sent for culture. Transvaginal ultrasound shows bilateral ovarian cysts with no evidence of torsion. Patient shows improvement in pain after medication. Instructed to follow-up with [facility]. Educated on supportive treatment. Prescription for Macrobid sent to pharmacy. Follow-up with PCP. Report back to ER with any new or worsening symptoms. Discussed return parameters and answered all questions. Patient conveyed verbal understanding and agreed to the plan. I discussed this case in detail with my attending Dr. Christy. (Davide Reardon) - Lab Data Lab Results 11/25/21 11/25/21 11/25/21 Range/Units 21:22 21:22 21:22 WBC 9.5 (3.8-10.6) k/uL RBC 5.61 H (3.80-5.40) m/uL Hgb 11.9 (11.4-16.0) gm/dL Hct 37.5 (34.0-46.0) % MCV 66.7 L (80.0-100.0) fL MCH 21.2 L (25.0-35.0) pg MCHC 31.8 (31.0-37.0) g/dL RDW 14.5 (11.5-15.5) % Plt Count 210 (150-450) k/uL MPV 7.6 Neutrophils % 60 % Lymphocytes % 29 % Monocytes % 4 % Eosinophils % 4 % Basophils % 1 % Neutrophils # 5.7 (1.3-7.7) k/uL Lymphocytes # 2.8 (1.0-4.8) k/uL Monocytes # 0.4 (0-1.0) k/uL Eosinophils # 0.4 (0-0.7) k/uL Basophils # 0.1 (0-0.2) k/uL Hypochromasia Moderate Microcytosis Marked PT 10.5 (9.0-12.0) sec INR 1.0 (<1.2) APTT 27.8 (22.0-30.0) sec Sodium 137 (137-145) mmol/L Potassium 4.2 (3.5-5.1) mmol/L Chloride 102 (98-107) mmol/L Carbon Dioxide 22 (22-30) mmol/L Anion Gap 13 mmol/L BUN 9 (7-17) mg/dL Creatinine 0.58 (0.52-1.04) mg/dL Est GFR (CKD-EPI)AfAm >90 (>60 ml/min/1.73 sqM) Est GFR (CKD-EPI)NonAf >90 (>60 ml/min/1.73 sqM) Glucose 92 (74-99) mg/dL Plasma Lactic Acid Fernando (0.7-2.0) mmol/L Calcium 9.2 (8.4-10.2) mg/dL Total Bilirubin 0.9 (0.2-1.3) mg/dL AST 27 (14-36) U/L ALT 19 (4-34) U/L Alkaline Phosphatase 51 (38-126) U/L Total Protein 7.3 (6.3-8.2) g/dL Albumin 4.7 (3.5-5.0) g/dL Urine Color Urine Appearance (Clear) Urine pH (5.0-8.0) Ur Specific [place] (1.001-1.035) Urine Protein (Negative) Urine Glucose (UA) (Negative) Urine Ketones (Negative) Urine Blood (Negative) Urine Nitrite (Negative) Urine Bilirubin (Negative) Urine Urobilinogen (<2.0) mg/dL Ur Leukocyte Esterase (Negative) Urine RBC (0-5) /hpf Urine WBC (0-5) /hpf Ur Squamous Epith Cells (0-4) /hpf Urine Mucus (None) /hpf Urine HCG, Qual (Not Detectd) 11/25/21 11/25/21 11/25/21 Range/Units 21:22 22:10 22:10 WBC (3.8-10.6) k/uL RBC (3.80-5.40) m/uL Hgb (11.4-16.0) gm/dL Hct (34.0-46.0) % MCV (80.0-100.0) fL MCH (25.0-35.0) pg MCHC (31.0-37.0) g/dL RDW (11.5-15.5) % Plt Count (150-450) k/uL MPV Neutrophils % % Lymphocytes % % Monocytes % % Eosinophils % % Basophils % % Neutrophils # (1.3-7.7) k/uL Lymphocytes # (1.0-4.8) k/uL Monocytes # (0-1.0) k/uL Eosinophils # (0-0.7) k/uL Basophils # (0-0.2) k/uL Hypochromasia Microcytosis PT (9.0-12.0) sec INR (<1.2) APTT (22.0-30.0) sec Sodium (137-145) mmol/L Potassium (3.5-5.1) mmol/L Chloride (98-107) mmol/L Carbon Dioxide (22-30) mmol/L Anion Gap mmol/L BUN (7-17) mg/dL Creatinine (0.52-1.04) mg/dL Est GFR (CKD-EPI)AfAm (>60 ml/min/1.73 sqM) Est GFR (CKD-EPI)NonAf (>60 ml/min/1.73 sqM) Glucose (74-99) mg/dL Plasma Lactic Acid Fernando 0.5 L (0.7-2.0) mmol/L Calcium (8.4-10.2) mg/dL Total Bilirubin (0.2-1.3) mg/dL AST (14-36) U/L ALT (4-34) U/L Alkaline Phosphatase (38-126) U/L Total Protein (6.3-8.2) g/dL Albumin (3.5-5.0) g/dL Urine Color Light Yellow Urine Appearance Clear (Clear) Urine pH 6.5 (5.0-8.0) Ur Specific [place] 1.009 (1.001-1.035) Urine Protein Negative (Negative) Urine Glucose (UA) Negative (Negative) Urine Ketones 1+ H (Negative) Urine Blood Negative (Negative) Urine Nitrite Negative (Negative) Urine Bilirubin Negative (Negative) Urine Urobilinogen <2.0 (<2.0) mg/dL Ur Leukocyte Esterase Moderate H (Negative) Urine RBC 4 (0-5) /hpf Urine WBC 16 H (0-5) /hpf Ur Squamous Epith Cells 1 (0-4) /hpf Urine Mucus Rare H (None) /hpf Urine HCG, Qual Not Detected (Not Detectd) Disposition Is patient prescribed a controlled substance at d/c from ED?: No Time of Disposition: 23:30 <Davdie Reardon - Last Filed: 11/26/21 00:26> <Madhu Christy - Last Filed: 11/26/21 05:22> Clinical Impression: Ovarian cyst, UTI (urinary tract infection) Disposition: HOME SELF-CARE Condition: Good Instructions (If sedation given, give patient instructions): Ovarian Cyst (ED), Urinary Tract Infection in Women (ED) Additional Instructions: Follow up with [facility]. Report back to ER with any new or worsening symptoms. Take Motrin and Tylenol as needed for pain control. Prescriptions: Nitrofurantoin Monohyd/M-Cryst [Macrobid] 100 mg PO Q12HR 5 Days #10 cap Referrals: None,Stated [Primary Care Provider] - 1-2 days Latanya Rubio, [Doctor of Osteopathic Medicine] - 1-2 days
[2021-11-25 23:11] LABS: Appearance,Urine Clear (Clear); Bilirubin,Urine Negative (Negative); Blood,Urine Negative (Negative); Color,Urine Light Yellow; Glucose,Urine (UA) Negative (Negative); Ketones,Urine 1+ (Negative); Leukocyte Esterase,Urine Moderate (Negative); Mucus,Urine Rare /hpf; Nitrite,Urine Negative (Negative); PH, Urine 6.5 (5.0-8.0); Protein,Urine Negative (Negative); RBC,Urine 4 /hpf (0-5); Specific Gravity,Urine 1.009 (1.001-1.035); Squamous Epithelial Cell,Urine 1 /hpf (0-4); Urobilinogen,Urine <2.0 mg/dL (<2.0); WBC,Urine 16 /hpf (0-5)
--- NOTE | 2021-11-25 23:13 | US ---
EXAMINATION TYPE: US transvaginal DATE OF EXAM: 11/25/2021 COMPARISON: None available CLINICAL HISTORY: L pelvic pain, known cysts, r/o torsion. Pelvic pain. Hx cyst removal. TECHNIQUE: Transvaginal (TV). Date of LMP: 11/06/2021, EXAM MEASUREMENTS: Uterus: 7.0 x 5.0 x 4.4 cm Endometrial Stripe: 0.9 cm Right Ovary: 4.3 x 1.8 x 2.1 cm Left Ovary: 3.8 x 2.6 x 2.3 cm 1. Uterus: Retroverted wnl 2. Endometrium: wnl 3. Right Ovary: Complex cystic lesion = 1.9 x 1.3 x1.7 cm 4. Left Ovary: Complex cystic lesion = 2.2 x 2.6 x 2.3 cm Spectral, color and waveform doppler imaging shows good arterial and venous flow within the ovaries ; there is no evidence for ovarian torsion. 5. Bilateral Adnexa: Free fluid adjacent to right ovary 6. Posterior cul-de-sac: free fluid IMPRESSION: There are bilateral complex ovarian cysts. No solid adnexal mass. No evidence of ovarian torsion. The re is some mild free fluid in the pelvis.
[2021-11-25] MEDS ORDERED: traMADol 50 MG STARTER PACK 3 TAB BTL PO STA (23:30)
[2021-11-26 00:25] VITALS: BP 108/62; PULSE 67; RESP 18; TEMP 98.9
== END 2021-11-25 23:55 | disposition home or self-care (01) ==
LOC: EC 16:54
DX: N83.202 Unspecified ovarian cyst, left side (principal); N39.0 Urinary tract infection, site not specified; F41.9 Anxiety disorder, unspecified; F32.A Depression, unspecified; F17.200 Nicotine dependence, unspecified, uncomplicated; F12.90 Cannabis use, unspecified, uncomplicated; Z88.5 Allergy status to narcotic agent
CPT/HCPCS: 36415; 80053; 83605; 85025; 85610; 85730; 81001; 81025; 87086; 93975; 76830; 99284; 96374; 96375 ×2; 96361; J2270; J2405; J1885

== ENCOUNTER 2022-11-12 09:02 | Emergency (ER) | payer OTHER ==
[2022-11-12] MEDS ORDERED: KETOROLAC 15 MG/ML 1 ML VIAL IM STA (09:43)
--- NOTE | 2022-11-12 10:31 | ED ---
General Adult HPI - General Chief complaint: Extremity Injury, Upper Stated complaint: Smashed R Thumb Time Seen by Provider: 11/12/22 09:16 Source: patient, RN notes reviewed Mode of arrival: ambulatory Limitations: no limitations - History of Present Illness Initial comments: 42-year-old female presented to the emergency room today with chief complaint of injury to the right thumb. Patient does admit that she externally closed the car door just prior to arrival. Patient does admit to pain locally to the area. Patient denies any other complaints or any other symptoms at this time. - Related Data Home Medications Medication Instructions Recorded Confirmed Ibuprofen [Motrin] 800 mg PO Q8H PRN 12/19/19 12/19/19 Previous Rx's Medication Instructions Recorded Azithromycin [Zithromax] 2 tablet PO ONCE 1 Days #2 tab 12/19/19 Cephalexin [Keflex] 500 mg PO Q6HR #40 cap 12/19/19 Mag Hydrox/Al Hydrox/Simeth 30 ml PO BID PRN #300 ml 11/25/21 [Maalox] Nitrofurantoin Monohyd/M-Cryst 100 mg PO Q12HR 5 Days #10 cap 11/25/21 [Macrobid] Ondansetron Odt [Zofran Odt] 4 mg PO Q8HR PRN 2 Days #6 tab 11/25/21 Ibuprofen [Motrin] 600 mg PO Q6HR PRN #40 day 11/12/22 Allergies Allergy/AdvReac Type Severity Reaction Status Date / Time codeine AdvReac Itching Verified 11/12/22 09:07 [From Tylenol-Codeine #3] Review of Systems ROS Statement: Those systems with pertinent positive or pertinent negative responses have been documented in the HPI. ROS Other: All systems not noted in ROS Statement are negative. Past Medical History Past Medical History: No Reported History Additional Past Medical History / Comment(s): migraine, kidney infection, ovarian cysts. History of Any Multi-Drug Resistant Organisms: ESBL Date of last positivie culture/infection: 07/28/16 MDRO Source:: ESBL URINE Past Surgical History: Orthopedic Surgery, Tubal Ligation Additional Past Surgical History / Comment(s): ovarian cyst, left knee surgery, Past Anesthesia/Blood Transfusion Reactions: No Reported Reaction Past Psychological History: Anxiety, Depression Smoking Status: Current every day smoker Past Alcohol Use History: Occasional Past Drug Use History: Cocaine, Marijuana, Methamphetamine - Past Family History Mother Family Medical History: No Reported History Father Family Medical History: No Reported History General Exam - General Exam Comments Initial Comments: General: The patient is awake and alert, in no distress, and does not appear acutely ill. Neck: The neck is supple, there is no tenderness or JVD. respirations are non-labored Musculoskeletal: Patient does have some bruising to the distal aspect of the right thumb. No subungual hematoma. Sensations are intact. Does have t enderness locally to the distal aspect of the right thumb. Shows good range of motion. No obvious deformity. Radial pulse 2+. Neurological: A&O x 3. CN II-XII intact, There are no obvious motor or sensory deficits. Coordination appears grossly intact. Speech is normal. Skin: Skin is warm and dry and no rashes or lesions are noted. Psychiatric: Normal mood and affect. Limitations: no limitations Course Vital Signs 11/12/22 09:05 Temperature 98.1 F Pulse Rate 112 H Respiratory 18 Rate Blood Pressure 121/69 O2 Sat by Pulse 99 Oximetry Medical Decision Making - Medical Decision Making History was obtained from patient/Nurse Initial assessment and chief complaint: Thumb injury Social determinants affecting care: None Differential diagnosis included, but not limited to: Fracture, dislocation, contusion Any imaging that may have been performed was also reviewed. I did an independent interpretation of the patient's imaging. My interpretation of right thumb was reviewed no fracture dislocation. 42-year-old female presented to the emergency room today with a chief complaint of an injury to the right thumb. Actually closed the car door. X-ray was reviewed and was unremarkable for any fracture dislocation. Patient advised ice elevate the affected area use anti-inflammatories for pain. Patient states understanding and is agreement with plan. Disposition Clinical Impression: Thumb contusion Disposition: HOME SELF-CARE Condition: Good Instructions (If sedation given, give patient instructions): Hematoma (ED) Prescriptions: Ibuprofen [Motrin] 600 mg PO Q6HR PRN #40 day PRN Reason: Pain Is patient prescribed a controlled substance at d/c from ED?: No Referrals: None,Stated [Primary Care Provider] - 1-2 days Time of Disposition: 10:54
--- NOTE | 2022-11-12 10:34 | XR ---
EXAMINATION TYPE: XR finger RT DATE OF EXAM: 11/12/2022 COMPARISON: NONE HISTORY: 42-year-old female right thumb injury and pain TECHNIQUE: 3 views coned on thumb FINDINGS: No acute fracture, subluxation, dislocation. IMPRESSION: No acute osseous abnormality seen.
[2022-11-12 11:11] VITALS: BP 126/84; PULSE 83; RESP 16; TEMP 98.4
== END 2022-11-12 11:00 | disposition home or self-care (01) ==
LOC: EC 09:02
DX: S60.011A Contusion of right thumb without damage to nail, initial encounter (principal); F17.200 Nicotine dependence, unspecified, uncomplicated; F12.90 Cannabis use, unspecified, uncomplicated; F15.90 Other stimulant use, unspecified, uncomplicated; F14.90 Cocaine use, unspecified, uncomplicated; Z88.5 Allergy status to narcotic agent; W23.0XXA Caught, crushed, jammed, or pinched between moving objects, initial encounter
CPT/HCPCS: 73140; 99283; 96372; J1885

== ENCOUNTER 2023-01-28 14:43 | Emergency (ER) | payer OTHER ==
--- NOTE | 2023-01-28 14:50 | ED ---
General Adult HPI - General Stated complaint: left leg insect bite Time Seen by Provider: 01/28/23 14:49 Source: patient, RN notes reviewed Mode of arrival: ambulatory Limitations: no limitations - History of Present Illness Initial comments: 42-year-old female sent emergency Department chief complaint infection to her left leg. Patient states that she constantly picks at different pimples. States that there is redness, soreness to the site. She believes that she was bit by a spider. She doesn't that she's had infections in the past denies any fevers or chills no other associated symptoms. - Related Data Home Medications Medication Instructions Recorded Confirmed Ibuprofen [Motrin] 800 mg PO Q8H PRN 12/19/19 12/19/19 Previous Rx's Medication Instructions Recorded Azithromycin [Zithromax] 2 tablet PO ONCE 1 Days #2 tab 12/19/19 Cephalexin [Keflex] 500 mg PO Q6HR #40 cap 12/19/19 Mag Hydrox/Al Hydrox/Simeth 30 ml PO BID PRN #300 ml 11/25/21 [Maalox] Nitrofurantoin Monohyd/M-Cryst 100 mg PO Q12HR 5 Days #10 cap 11/25/21 [Macrobid] Ondansetron Odt [Zofran Odt] 4 mg PO Q8HR PRN 2 Days #6 tab 11/25/21 Ibuprofen [Motrin] 600 mg PO Q6HR PRN #40 day 11/12/22 Sulfamethox-Tmp 800-160Mg [Bactrim 1 each PO Q12HR #20 tab 01/28/23 Ds] Allergies Allergy/AdvReac Type Severity Reaction Status Date / Time codeine AdvReac Itching Verified 11/12/22 09:07 [From Tylenol-Codeine #3] Review of Systems ROS Statement: Those systems with pertinent positive or pertinent negative responses have been documented in the HPI. ROS Other: All systems not noted in ROS Statement are negative. Past Medical History Past Medical History: No Reported History Additional Past Medical History / Comment(s): migraine, kidney infection, ovarian cysts. History of Any Multi-Drug Resistant Organisms: ESBL Date of last positivie culture/infection: 07/28/16 MDRO Source:: ESBL URINE Past Surgical History: Orthopedic Surgery, Tubal Ligation Additional Past Surgical History / Comment(s): ovarian cyst, left knee surgery, Past Anesthesia/Blood Transfusion Reactions: No Reported Reaction Past Psychological History: Anxiety, Depression Smoking Status: Current every day smoker Past Alcohol Use History: Occasional Past Drug Use History: Cocaine, Marijuana, Methamphetamine - Past Family History Mother Family Medical History: No Reported History Father Family Medical History: No Reported History General Exam Limitations: no limitations General appearance: alert, in no apparent distress Head exam: Present: atraumatic, normocephalic, normal inspection Neck exam: Present: normal inspection, full ROM. Absent: tenderness, meningismus, lymphadenopathy Respiratory exam: Present: normal lung sounds bilaterally. Absent: respiratory distress, wheezes, rales, rhonchi, stridor Cardiovascular Exam: Present: regular rate, normal rhythm, normal heart sounds. Absent: systolic murmur, diastolic murmur, rubs, gallop, clicks Extremities exam: Present: other (Of anterior thigh 0.5 cm erythematous with central lesion) Course Vital Signs 01/28/23 14:57 Temperature 99 F Pulse Rate 100 Respiratory 20 Rate Blood Pressure 107/60 O2 Sat by Pulse 98 Oximetry Medical Decision Making - Medical Decision Making Was pt. sent in by a medical professional or institution (, PA, D[facility] FILLER, urgent care, hospital, or [facility]...) When possible be specific @ -No Did you speak to anyone other than the patient for history (EMS, parent, family, police, friend...)? What history was obtained from this source @ -No Did you review nursing and triage notes (agree or disagree)? Why? @ -I reviewed and agree with nursing and triage notes Were old charts reviewed (outside hosp., previous admission, EMS record, old EKG, old radiological studies, urgent care reports/EKG's, [facility] records)? Report findings @ -No old charts were reviewed Differential Diagnosis (chest pain, altered mental status, abdominal pain women, abdominal pain men, vaginal bleeding, weakness, fever, dyspnea, syncope, headache, dizziness, GI bleed, back pain, seizure, CVA, palpatations, mental health, musculoskeletal)? @ -Abscess, cellulitis EKG interpreted by me (3pts min.). @ -None X-rays interpreted by me (1pt min.). @ -None done CT interpreted by me (1pt min.). @ -None done U/S interpreted by me (1pt. min.). @ -None done What testing was considered but not performed or refused? (CT, X-rays, U/S, labs)? Why? @ -None What meds were considered but not given or refused? Why? @ -None Did you discuss the management of the patient with other professionals (professionals i.e. , PA, DIP FILLER, lab, RT, psych nurse, 7th grade social studies teacher, geological sample tester, teacher, correction officer head, shelter case manager)? Give summary @ -No Was smoking cessation discussed for >3mins.? @ -No Was critical care preformed (if so, how long)? @ -No Were there social determinants of health that impacted care today? How? (Homelessness, low income, unemployed, alcoholism, drug addiction, transportation, low edu. Level, literacy, decrease access to med. care, correction, rehab)? @ -No Was there de-escalation of care discussed even if they declined (Discuss DNR or withdrawal of care, Hospice)? DNR status @ -No What co-morbidities impacted this encounter? (DM, HTN, Smoking, COPD, CAD, Cancer, CVA, ARF, Chemo, Hep., AIDS, mental health diagnosis, sleep apnea, morbid obesity)? @ -None Was patient admitted / discharged? Hospital course, mention meds given and route, prescriptions, significant lab abnormalities, going to OR and other pertinent info. @ -[Discharge patient has left leg minimal abscess, cellulitis. Patient was started on Bactrim Undiagnosed new problem with uncertain prognosis? @ -No Drug Therapy requiring intensive monitoring for toxicity (Heparin, Nitro, Insulin, Cardizem)? @ -No Were any procedures done? @ -No Diagnosis/symptom? @ -Left leg abscess Acute, or Chronic, or Acute on Chronic? @ -Acute Uncomplicated (without systemic symptoms) or Complicated (systemic symptoms)? @ -Uncomplicated Side effects of treatment? @ -No Exacerbation, Progression, or Severe Exacerbation? @ -No Poses a threat to life or bodily function? How? (Chest pain, [place], [place], pneumonia, PE, COPD, DKA, ARF, appy, cholecystitis, CVA, Diverticulitis, Homicidal, Suicidal, threat to staff... and all critical care pts) @ -No Disposition Clinical Impression: Abscess of leg, left Disposition: HOME SELF-CARE Condition: Stable Instructions (If sedation given, give patient instructions): Abscess (ED) Additional Instructions: Please return to the Emergency Department if symptoms worsen or any other concerns. Prescriptions: Sulfamethox-Tmp 800-160Mg [Bactrim Ds] 1 each PO Q12HR #20 tab Is patient prescribed a controlled substance at d/c from ED?: No Referrals: None,Stated [Primary Care Provider] - 1-2 days Time of Disposition: 14:50
[2023-01-28 15:05] VITALS: BP 107/60; PULSE 100; RESP 20; TEMP 99
== END 2023-01-28 15:02 | disposition home or self-care (01) ==
LOC: EC 14:43
DX: L02.416 Cutaneous abscess of left lower limb (principal); F17.200 Nicotine dependence, unspecified, uncomplicated; F14.90 Cocaine use, unspecified, uncomplicated; F12.90 Cannabis use, unspecified, uncomplicated; F15.90 Other stimulant use, unspecified, uncomplicated; Z88.5 Allergy status to narcotic agent
CPT/HCPCS: 99282